=== PATIENT | male | born 1940 | race Caucasian/White ===

== ENCOUNTER 2017-06-24 07:36 | Inpatient (IN) | payer MEDICARE, OTHER ==
[~2017-06-24] VITALS: Ht 193 cm; Wt 96.8 kg
[2017-06-24] VITALS (11 sets, daily range): BP systolic 142–168; BP diastolic 68–83; PULSE 55–79; RESP 13–20; TEMP 97.5–98.2; O2SAT 89–100
[~2017-06-24 07:36] MED LIST: ASPI81TA82 PO; DORZO2%O EACH EYE; LANTUSP SQ; LISI-366 PO; NOVORP2 SQ
[2017-06-24] MEDS ORDERED: SODIUM CHLOR 0.9% 1000 ML INJ 1,000 ML IV SCH (07:55)
[2017-06-24] MEDS ORDERED: ASPI81CH CHEW (07:58)
[2017-06-24] MEDS ORDERED: HYDR12.57 PO (07:58)
[2017-06-24] MEDS ORDERED: LISI40TA PO (07:58)
[2017-06-24] MEDS ORDERED: LANTUS2P SQ (07:58)
[2017-06-24] MEDS ORDERED: AMIO200T PO (07:58)
[2017-06-24] MEDS ORDERED: NOVORP2 SQ ×2 (07:58)
[2017-06-24] MEDS ORDERED: SODIUM CHLORIDE 0.9% FLUSH 10 ML FLUSH IV FLUSH PRN ×2 (08:00→11:30)
[2017-06-24] MEDS ORDERED: MORPHINE SULFATE 4 MG/ML INJ IV PUSH ONE (08:00)
[2017-06-24] MEDS ORDERED: ONDANSETRON HCL 4 MG/2 ML VIAL IVP ONE (08:00)
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
[2017-06-24 08:28] LABS: AUTOMATED NEUTROPHIL # 9.3 TH/MM3 (1.8-7.7); BASOPHIL # 0.1 TH/MM3 (0-0.2); BASOPHIL % 0.6 % (0.0-2.0); EOSINOPHIL # 0.1 TH/MM3 (0-0.4); EOSINOPHIL % 0.6 % (0.0-4.0); HEMOGLOBIN 15.3 GM/DL (13.0-17.0); LYMPH % 11.4 % (9.0-44.0); LYMPHOCYTE # 1.3 TH/MM3 (1.0-4.8); MEAN CELL VOLUME 89.5 FL (80.0-100.0); MEAN CORPUSCULAR HEMOGLOBIN 30.5 PG (27.0-34.0); MEAN CORPUSCULAR HGB CONC 34.1 % (32.0-36.0); MEAN PLATELET VOLUME 7.6 FL (7.0-11.0); MONO % 5.5 % (0.0-8.0); MONOCYTE # 0.6 TH/MM3 (0-0.9); NEUT % 81.9 % (16.0-70.0); PLATELET COUNT 320 TH/MM3 (150-450); RED BLOOD COUNT 5.03 MIL/MM3 (4.50-5.90); RED CELL DISTRIBUTION WIDTH 12.9 % (11.6-17.2); WHITE BLOOD COUNT 11.4 TH/MM3 (4.0-11.0)
--- NOTE | 2017-06-24 08:43 | RADRPT ---
EXAM DATE/TIME: 06/24/2017 08:21 [facility] COMPARISON: No previous studies available for comparison. INDICATIONS : Vomitting and shortness of breath. MEDICAL HISTORY : Pancreatitis. A-fib. SURGICAL HISTORY : Appendectomy. Cholecystectomy. ENCOUNTER: Initial ACUITY: 1 day PAIN SCORE: 0/10 LOCATION: Bilateral chest FINDINGS: Minimal elevation of the left hemidiaphragm with minimal left lower lobe airspace disease. Cardiomedi astinal contours are within normal limits. Bony thorax is intact. CONCLUSION: 1. Minimal left lower lobe airspace disease and volume loss consistent with atelectasis. Sourav Guevara MD on June 24, 2017 at 8:40 Board Certified Radiologist. This report was verified electronically.
[2017-06-24 08:47] LABS: ALBUMIN 3.6 GM/DL (3.4-5.0); ALT (GPT) 26 U/L (12-78); AST (GOT) 23 U/L (15-37); BICARBONATE 25.1 MEQ/L (21.0-32.0); BLOOD UREA NITROGEN 18 MG/DL (7-18); CALCIUM 9.1 MG/DL (8.5-10.1); CHLORIDE 98 MEQ/L (98-107); CREATININE 1.33 MG/DL (0.60-1.30); GLOMERULAR FILTRATION RATE 52 ML/MIN (>89); GLUCOSE,RANDOM 219 MG/DL (74-106); LIPASE 253 U/L (73-393); SODIUM (NA) 134 MEQ/L (136-145)
[2017-06-24 08:50] LABS: ALKALINE PHOSPHATASE 100 U/L (45-117); TOTAL BILIRUBIN ADULT 0.6 MG/DL (0.2-1.0); TOTAL PROTEIN 8.4 GM/DL (6.4-8.2)
[2017-06-24 09:34] LABS: TROPONIN I 0.12 NG/ML (0.02-0.05)
[2017-06-24] MEDS ORDERED: ASPIRIN 81 MG CHEW TAB CHEW ONE (10:30)
--- NOTE | 2017-06-24 10:36 | HHI.HP ---
[facility] Service Family Medicine Primary Care Physician Gregg Fernández, DO Admission Diagnosis nausea/vomiting, elevated troponin, chronic pancreatitis Diagnoses: International Travel<30 Days: No Contact w/Intl Traveler<30days: No Known Affected Area: No History of Present Illness Patient is a 76 year old male with PMH significant for paroxysmal atrial fibrillation, chronic pancreatitis, HTN, hepatitic C, prostate cancer, DM who presents to the ED with complaints of epigastric abdominal pain over about the past week. He states he had a cracker last night around 2300 and he thinks this may have set his pain off. States his pain is nonradiating, describes it as a steady burning pain and also as dull achy. Denies any sharp pains. He states he has vomited about 3 times over the past day. States the first time he threw up was yesterday morning. Last time he threw up was 02:30 this morning. States the vomit has mostly been orange, same color as his jello. No bilious or bloody vomiting per patient. Endorses having diarrhea that started this past Tuesday. Having diarrhea about 2/3 times daily. Last BM was last night; endorses this was loose. Denies visible blood in stools or melena. Denies fevers, chills, night sweats recently. He states Dr. Gillis is his police officer booking. States he recently had an EUS at [facility] and had a biopsy performed which was negative for malignancy. States this was done last week. He also reports he recently had a CT scan of his abdomen and MRCP which he states were both negative. States theses were performed about a month ago. These were performed at [facility]. He states Dr. Angulo is his development executive. He states he was referred to Dr. Angulo for atrial fibrillation. Last visit was about a month ago. He states he is taking amiodarone 200 mg po daily. The patient denies any current chest pain. Denies palpitations or diaphoresis. He does states he has felt some intermittent chest tightness and sometimes more of a pressure over the course of last week but denies anything current and denies any crushing chest pain. (Servando Pérez MD R2) Review of Systems Constitutional: COMPLAINS OF: Weight loss, DENIES: Fever, Chills, Change in appetite Respiratory: DENIES: Cough, Sputum production, Shortness of breath Cardiovascular: DENIES: Chest pain, Palpitations, Lower Extremity Edema Gastrointestinal: COMPLAINS OF: Abdominal pain, Diarrhea, Nausea, Vomiting, DENIES: Black stools, Bloody stools, Constipation Genitourinary: DENIES: Hematuria, Dysuria Integumentary: DENIES: Rash (Servando Pérez MD R2) Past Family Social History Past Medical History Paroxysmal atrial fibrillation Prostate Cancer diagnosed about 4 years ago Chronic pancreatitis H/o bowel obstruction DM Hepatitic C s/p Harvoni therapy HTN Emphysema Past Surgical History Rotator cuff repair bilaterally Cholecystectomy Appendectomy per patient Bilateral knee surgeries Tracheotomy Surgery for herniated disc (Servando Pérez MD R2) Allergies: Coded Allergies: No Known Allergies (Verified , 06/24/17) Family History Father: unspecified GI issues Mother: Cardiac disease Social History Tobacco: 1 PPD; quit smoking about a year ago, started smoking at age 10 Etoh: currently denies; used to drink a couple 6 packs of beer daily, states his last drink was about 12 years ago Illicit drug use: last use of marijuana was about a month ago; otherwise denies use of other substances Lives with daughter and her and his grandson (Servando Pérez MD R2) Physical Exam Vital Signs Vital Signs Date Time Temp Pulse Resp B/P (MAP) Pulse Ox O2 Delivery O2 Flow Rate FiO2 06/24/17 09:49 62 16 142/71 (94) 98 Nasal Cannula 2.00 06/24/17 08:21 16 96 Nasal Cannula 2.00 06/24/17 08:20 16 89 Room Air 06/24/17 08:18 16 06/24/17 07:38 97.6 79 13 160/82 (108) 95 Physical Exam GENERAL: NAD, lying comfortably in bed NEURO: Alert. Normal speech. 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 Motor grossly normal. SKIN: Warm and dry. No rashes or erythema. HEAD: Normocephalic. Atraumatic. EYES: PERRL. EOMI. No scleral icterus. No injection or drainage. ENT: No nasal drainage. Moist mucous membranes. No oral ulcers or lesions. NECK: Supple, trachea midline. No JVD. No carotid bruits. CARDIOVASCULAR: Regular rate and rhythm without murmurs, rubs, or gallops. Peripheral pulses 2+. Capillary refill < 2 seconds. RESPIRATORY: Breath sounds clear to auscultation and equal bilaterally, without wheezes, rales, or rhonchi. No accessory muscle use. GASTROINTESTINAL: Abdomen soft, tender to moderate palpation in mid-upper abdomen as well as some tenderness to deeper palpation in LUQ and RUQ, nontender in lower quadrants, nondistended, normal BS. No organomegaly or masses. No rebound tenderness. No guarding. MUSCULOSKELETAL: No lower extremity edema. Normal range of motion. BACK: Nontender without obvious deformity. Laboratory Laboratory Tests Test 06/24/17 08:02 White Blood Count 11.4 Red Blood Count 5.03 Hemoglobin 15.3 Hematocrit 45.0 Mean Corpuscular Volume 89.5 Mean Corpuscular Hemoglobin 30.5 Mean Corpuscular Hemoglobin Concent 34.1 Red Cell Distribution Width 12.9 Platelet Count 320 Mean Platelet Volume 7.6 Neutrophils (%) (Auto) 81.9 Lymphocytes (%) (Auto) 11.4 Monocytes (%) (Auto) 5.5 Eosinophils (%) (Auto) 0.6 Basophils (%) (Auto) 0.6 Neutrophils # (Auto) 9.3 Lymphocytes # (Auto) 1.3 Monocytes # (Auto) 0.6 Eosinophils # (Auto) 0.1 Basophils # (Auto) 0.1 CBC Comment DIFF FINAL Differential Comment Blood Urea Nitrogen 18 Creatinine 1.33 Random Glucose 219 Total Protein 8.4 Albumin 3.6 Calcium Level 9.1 Alkaline Phosphatase 100 Aspartate Amino Transf (AST/SGOT) 23 Alanine Aminotransferase (ALT/SGPT) 26 Total Bilirubin 0.6 Sodium Level 134 Potassium Level 4.3 Chloride Level 98 Carbon Dioxide Level 25.1 Anion Gap 11 Estimat Glomerular Filtration Rate 52 Lactic Acid Level 1.7 Total Creatine Kinase 102 Troponin I 0.12 Lipase 253 (Servando Pérez MD R2) Result Diagram: 06/24/1780106/24/17801 Caprini VTE Risk Assessment Caprini VTE Risk Assessment: Mod/High Risk (score >= 2) Caprini Risk Assessment Model Point Value = 1 Point Value = 2 Point Value = 3 Point Value = 5 Age 41-60 Minor surgery BMI > 25 kg/m2 Swollen legs Varicose veins or History of unexplained or recurrent spontaneous Oral contraceptives or hormone replacement Sepsis (< 1 month) Serious lung disease, including pneumonia (< 1 month) Abnormal pulmonary function Acute myocardial infarction Congestive heart failure (< 1 month) History of inflammatory bowel disease Medical patient at bed rest Age 61-74 Arthroscopic surgery Major open surgery (> 45 min) Laparoscopic surgery (> 45 min) Malignancy Confined to bed (> 72 hours) Immobilizing plaster cast Central venous access Age >= 75 History of VTE Family history of VTE Factor V Leiden Prothrombin [id number] Lupus anticoagulant Anticardiolipin antibodies Elevated serum homocysteine Heparin-induced thrombocytopenia Other congenital or acquired thrombophilia Stroke (< 1 month) Elective arthroplasty Hip, pelvis, or leg fracture Acute spinal cord injury (< 1 month) Prophylaxis Regimen Total Risk Factor Score Risk Level Prophylaxis Regimen 0-1 Low Early ambulation 2 Moderate Order ONE of the following: *Sequential Compression Device (SCD) *Heparin 5000 units SQ BID 3-4 Higher Order ONE of the following medications: *Heparin 5000 units SQ TID *Enoxaparin/Lovenox 40 mg SQ daily (WT < 150 kg, CrCl > 30 mL/min) *Enoxaparin/Lovenox 30 mg SQ daily (WT < 150 kg, CrCl > 10-29 mL/min) *Enoxaparin/Lovenox 30 mg SQ BID (WT < 150 kg, CrCl > 30 mL/min) AND/OR *Sequential Compression Device (SCD) 5 or more Highest Order ONE of the following medications: *Heparin 5000 units SQ TID (Preferred with Epidurals) *Enoxaparin/Lovenox 40 mg SQ daily (WT < 150 kg, CrCl > 30 mL/min) *Enoxaparin/Lovenox 30 mg SQ daily (WT < 150 kg, CrCl > 10-29 mL/min) *Enoxaparin/Lovenox 30 mg SQ BID (WT < 150 kg, CrCl > 30 mL/min) AND *Sequential Compression Device (SCD) (Servando Pérez MD R2) Assessment and Plan Assessment and Plan 76 year old man being admitted for symptoms consistent with chronic pancreatitis also found to have an elevated initial troponin to 0.[address] segment changes in contiguous leads. Code Status OK with ACLS protocol DNI Discussed Condition With Dr. Donell Romero (Servando Pérez MD R2) Attending Attestation Patient seen and examined. Case reviewed and discussed with the resident team. Agree with plan of care as discussed with me and documented in the resident note.pt seen on admission. no pain and no anginal sxs on admission. (Lisa Marley MD) Problem List: (1) Chronic pancreatitis ICD Codes: K86.1 - Other chronic pancreatitis Status: Acute Plan: Symptoms are mostly consistent with his chronic pancreatitis given his epigastric abdominal pain with N/V and association with meals Monitor closely for any development of complications asst with chronic pancreatitis and may consider further imaging if necessary Will hold off on imaging at this time given patient recently having an EUS performed as well as abd/pelvis CT along with MRCP Request ordered to obtain records for above imaging studies prior to further workup Initial lipase on admission WNL at 253 - Will keep patient NPO for now for bowel rest - IVF hydration with NS at maintenance - Zofran prn - Tylenol and Morphine prn pain (2) ST segment changes on electrocardiogram ICD Codes: R94.31 - Abnormal electrocardiogram [ECG] [EKG] Status: Acute Plan: - Initial troponin on admission 0.12 - EKG showing slight ST elevations in the anteroseptal leads that is different from his last EKG in this EMR however this is from 2013 - Cardiology consulted Spoke with Dr. Aviles, cardiology, via phone to discuss concern for a STEMI - Recommended as the patient currently does not have any anginal symptoms that he would not undergo a cardiac catheterization at this time - Start patient on metoprolol 25 mg po bid - Continue baby aspirin Will trend cardiac enzymes and EKG q6h x2 Nitroglycerin 1/2 inch q8h prn chest pain, allow for nitro free interval at least 8 hours daily Patient started on a heparin drip per protocol (3) Paroxysmal atrial fibrillation ICD Codes: I48.0 - Paroxysmal atrial fibrillation Status: Chronic Plan: Currently sinus rhythm Continue home amiodarone 200 mg po daily Cardiology consulted CHADSVASc score of 4 HASBLED of 2 Patient would likely benefit from chronic anticoagulation, will defer to cardiology at this time (4) ARIANA (acute kidney injury) ICD Codes: N17.9 - Acute kidney failure, unspecified Status: Acute Plan: Cr 1.33 on admission Last Cr in EMR 0.62 from 04/2014 Possibly acute on chronic in the setting of dehydration vs CKD IVF hydration as above Avoid nephrotoxins as able Monitor I/Os (5) Hypertension ICD Codes: I10 - Essential (primary) hypertension Status: Chronic Plan: Started metoprolol 25 mg po q12h Monitor vitals q4h (6) Leukocytosis ICD Codes: D72.829 - Elevated white blood cell count, unspecified Status: Acute Plan: Mildly elevated to 11.4, slight left shift present Clinically appears without an acute infectious process Continue to monitor clinically CXR demonstrating minimal left lower lobe airspace disease and volume loss consistent with atelectasis (7) Diabetes mellitus ICD Codes: E11.9 - Type 2 diabetes mellitus without complications Status: Chronic Plan: Accuchecks ACHS Low-dose NovoLog ISS Add basal if needed Hold home insulins (8) Hyponatremia ICD Codes: E87.1 - Hypo-osmolality and hyponatremia Status: Acute Plan: Na 134, continue to monitor (9) Nutrition, metabolism, and development symptoms ICD Codes: R63.8 - Other symptoms and signs concerning food and fluid intake Status: Acute Plan: Fluids: NS at maintenance Electrolytes: continue to monitor Nutrition: NPO DVT ppx: Heparin drip (Servando Pérez MD R2) Physician Certification 2 Midnight Certification Type: Admission for Inpatient Services Order for Inpatient Services The services are ordered in accordance with Medicare regulations or non- Medicare payer requirements, as applicable. In the case of services not specified as inpatient-only, they are appropriately provided as inpatient services in accordance with the 2-midnight benchmark. Estimated LOS (days): 2 days is the estimated time the patient will need to remain in the hospital, assuming treatment plan goals are met and no additional complications. Post-Hospital Plan: Home (Servando Pérez MD R2) Problem Qualifiers (1) Chronic pancreatitis: Qualified Codes: K86.0 - Alcohol-induced chronic pancreatitis (2) Hypertension: Qualified Codes: I10 - Essential (primary) hypertension (3) Leukocytosis: Qualified Codes: D72.829 - Elevated white blood cell count, unspecified (4) Diabetes mellitus: Qualified Codes: E10.8 - Type 1 diabetes mellitus with unspecified complications Servando Pérez MD R2 Jun 24, 2017 10:36 Lias Marley MD Jun 25, 2017 12:46
[2017-06-24] MEDS ORDERED: NALOXONE HCL 0.4 MG/ML AMP IV PUSH PRN (11:30)
[2017-06-24] MEDS ORDERED: MORPHINE SULFATE 4 MG/ML INJ IV PUSH PRN (11:30)
[2017-06-24] MEDS ORDERED: HEPARIN SODIUM - SQ 10,000 UNITS/ML VIAL SQ SCH (12:00)
[2017-06-24] MEDS ORDERED: cloNIDine HCL 0.1 MG TAB PO PRN (12:00)
[2017-06-24] MEDS ORDERED: DEXTROSE 50% IN WATER 50 ML VIAL(D50) IV PUSH PRN (12:15)
[2017-06-24] MEDS ORDERED: GLUCAGON 1 MG/ML VIAL OTHER PRN (12:15)
[2017-06-24] MEDS: SODIUM CHLOR 0.9% 1000 ML INJ 1,000 ML IV SCH ×2 (12:30→20:59)
[2017-06-24] MEDS: METOPROLOL TARTRATE 25 MG TAB PO SCH ×2 (12:30→21:21)
[2017-06-24] MEDS: INSULIN ASPART SUPPLEMENTAL SCALE SQ SCH ×3 (12:30→21:00)
[2017-06-24] MEDS: SODIUM CHLORIDE 0.9% FLUSH 10 ML FLUSH IV FLUSH SCH ×2 (12:30→20:46)
[2017-06-24] MEDS: ACETAMINOPHEN 325 MG TAB PO PRN ×2 (16:15→20:53)
--- NOTE | 2017-06-24 16:37 | MB ---
cc: STEVE ARRIETA M.D. DATE OF CONSULTATION: 06/24/2017. REASON FOR CONSULTATION: Evaluation of increased troponin. CHIEF COMPLAINT: Abdominal pain and vomiting. HISTORY OF PRESENT ILLNESS: Henok Bates is a 76-year-old white male admitted to the hospital with pancreatitis. The patient has had four episodes of pancreatitis since March. The etiology for the pancreatitis is unclear. He has had an MRCP. He has had multiple evaluations with no etiology found. The patient has been noted to have increased troponin on prior admissions to [facility]. He had a nuclear stress test performed that did not show any evidence for ischemia back in March. When he had the pancreatitis in March, he had an episode of atrial fibrillation and he was converted with amiodarone. The patient and daughter elected not to go on anticoagulation but he has been maintained on oral amiodarone. He has had no recurrence of any arrhythmias that he is aware of. He has not had any recent typical chest pain. He has had two episodes of squeezing in his chest that woke him up at night, each lasting less than a minute and the last one was two minutes two weeks ago. The pain is sharp, located the mid stomach. If he eats, it brings on the pain and makes him vomit. He has been increasingly sedentary since March. Prior to that, he was quite active. He has had no syncope or pre-syncope. No bleeding. PAST MEDICAL HISTORY: His past medical history includes: 1. Paroxysmal atrial fibrillation as described above. 2. Pancreatitis as described above. 3. He has had previous bowel obstruction. 4. He has had chronically elevated troponin. 5. Diverticulosis. 6. Diabetes mellitus. 7. Left foot drop. 8. Hepatitis C which is cured with Harvoni therapy. 9. Hypertension. 10. Prostate cancer treated with radiation therapy. PAST SURGICAL HISTORY: 1. Surgery for herniated disc which is responsible for the left foot drop. 2. Rotator cuff repair bilaterally. 3. Cholecystectomy. MEDICATIONS: 1. Aspirin 81 milligrams. 2. Amiodarone 200 milligrams daily. 3. Hydralazine which he only takes once a day. 4. Lisinopril 40 milligrams daily. 5. Insulin. ALLERGIES: NONE KNOWN. FAMILY HISTORY: Family history is positive for cancer and valve replacement in his mother. SOCIAL HISTORY: He used cocaine in his 40s, not since then. He smoked about a pack a day for 50 years and has COPD. He has not used in two months. He denies any alcohol use. REVIEW OF SYSTEMS: Review of systems otherwise negative. PHYSICAL EXAMINATION: GENERAL: A well-developed, well-nourished white male in no acute distress. VITAL SIGNS: Charted. HEAD, EYES, EARS, NOSE, THROAT: Unremarkable. NECK: No jugular venous distention. No bruits. CHEST: Clear to auscultation and percussion. CARDIAC: Normal first and second heart sounds. Regular rate and rhythm without murmurs or gallops. ABDOMEN: Positive bowel sounds. There is a mid-abdominal tenderness. EXTREMITIES: No cyanosis, clubbing or edema. Pulses are intact. EKGS: EKG shows sinus rhythm with slight S-T elevation in the anteroseptal leads that is no different from the two EKGs he has had. LABORATORY DATA: Troponin was 0.12 at 8:02 a.m. Creatinine is 1.33. Lipase is 253. IMAGING STUDIES: Chest x-ray shows possible atelectasis left base. IMPRESSION: Henok Bates has a mildly elevated troponin but he has had this before and had a negative nuclear stress test. He has clear abdominal tenderness that cannot explain or cannot tie the troponin in with the pancreatitis that he apparently has. The EKG is abnormal. My office is in the process getting hold of EKGs when he was in sinus in March to see if there is any difference. He has had atrial fibrillation before but has converted to sinus and maintained on amiodarone 200 milligrams daily. The etiology the pancreatitis is unclear and GI has been consulted. PLAN: I am not planning a cardiac catheterization at this point since he has no anginal type symptoms. Further therapy to be determined. MD MARCOS Barillas/JULIANE /4:10 PM /4:17 PM
[2017-06-24 17:33] LABS: MAGNESIUM 1.8 MG/DL (1.5-2.5)
[2017-06-24 17:36] LABS: TROPONIN I 0.16 NG/ML (0.02-0.05)
[2017-06-24] MEDS ORDERED: HEPARIN-D5W 25,000 U/250 ML 250 ML IV PRN (17:45)
[2017-06-24] MEDS ORDERED: HEPARIN SODIUM - IV 10,000 UNITS/10 ML VIAL IV PUSH ONE (17:45)
[2017-06-24] MEDS ORDERED: NITROGLYCERIN 2% OINT 1 GM PACKET TOPICAL PRN (17:45)
[2017-06-24] MEDS: ONDANSETRON HCL 4 MG/2 ML VIAL IVP PRN (18:24)
[2017-06-24 19:02] LABS: PROTHROMBIN TIME - PATIENT 11.4 SEC (9.8-11.6)
--- NOTE | 2017-06-24 19:11 | EKG ---
Date Performed: 06/24/2017 Time Performed: 07:59:53 PTAGE: 76 years EKG: Sinus rhythm ST DEVIATION AND MODERATE T-WAVE ABNORMALITY, CONSIDER ANTERIOR ISCHEMIA ABNORMAL ECG PREVIOUS TRACING : 06/24/2017 07.58 DOCTOR: Nick Christopher Interpretating Date/Time 06/24/2017 19:09:09
[2017-06-24] MEDS ORDERED: HEPARIN SODIUM - IV 10,000 UNITS/10 ML VIAL IV PUSH PRN ×2 (23:45)
[2017-06-25] VITALS (8 sets, daily range): BP systolic 152–170; BP diastolic 70–86; PULSE 55–84; RESP 17–20; TEMP 97.2–98; O2SAT 95–98
[2017-06-25] MEDS: ONDANSETRON HCL 4 MG/2 ML VIAL IVP PRN (00:26)
[2017-06-25] MEDS: MORPHINE SULFATE 4 MG/ML INJ IV PUSH PRN (00:59)
[2017-06-25 04:03] LABS: AUTOMATED NEUTROPHIL # 6.1 TH/MM3 (1.8-7.7); BASOPHIL % 0.6 % (0.0-2.0); EOSINOPHIL # 0.2 TH/MM3 (0-0.4); EOSINOPHIL % 2.6 % (0.0-4.0); HEMATOCRIT 39.6 % (39.0-51.0); HEMOGLOBIN 13.6 GM/DL (13.0-17.0); LYMPH % 15.9 % (9.0-44.0); LYMPHOCYTE # 1.3 TH/MM3 (1.0-4.8); MEAN CELL VOLUME 88.7 FL (80.0-100.0); MEAN CORPUSCULAR HEMOGLOBIN 30.5 PG (27.0-34.0); MEAN CORPUSCULAR HGB CONC 34.4 % (32.0-36.0); MEAN PLATELET VOLUME 7.3 FL (7.0-11.0); MONO % 8.8 % (0.0-8.0); MONOCYTE # 0.7 TH/MM3 (0-0.9); NEUT % 72.1 % (16.0-70.0); PLATELET COUNT 268 TH/MM3 (150-450); RED BLOOD COUNT 4.47 MIL/MM3 (4.50-5.90); WHITE BLOOD COUNT 8.4 TH/MM3 (4.0-11.0)
[2017-06-25 04:30] LABS: ALBUMIN 2.9 GM/DL (3.4-5.0); AST (GOT) 20 U/L (15-37); BICARBONATE 25.5 MEQ/L (21.0-32.0); BLOOD UREA NITROGEN 15 MG/DL (7-18); CALCIUM 8.3 MG/DL (8.5-10.1); CHLORIDE 107 MEQ/L (98-107); CREATININE 1.11 MG/DL (0.60-1.30); GLOMERULAR FILTRATION RATE 65 ML/MIN (>89); GLUCOSE,RANDOM 166 MG/DL (74-106); LIPASE 140 U/L (73-393); SODIUM (NA) 140 MEQ/L (136-145)
[2017-06-25 04:36] LABS: ALKALINE PHOSPHATASE 87 U/L (45-117); ALT (GPT) 19 U/L (12-78); TOTAL BILIRUBIN ADULT 0.5 MG/DL (0.2-1.0)
[2017-06-25] MEDS: SODIUM CHLOR 0.9% 1000 ML INJ 1,000 ML IV SCH ×3 (05:28→22:11)
[2017-06-25] MEDS: INSULIN ASPART SUPPLEMENTAL SCALE SQ SCH ×4 (08:00→21:00)
[2017-06-25] MEDS: LISINOPRIL 20 MG TAB PO SCH (08:57)
[2017-06-25] MEDS: ASPIRIN 81 MG CHEW TAB CHEW SCH (08:58)
[2017-06-25] MEDS: METOPROLOL TARTRATE 25 MG TAB PO SCH ×2 (08:58→22:03)
[2017-06-25] MEDS: AMIODARONE 200 MG TAB PO SCH (08:58)
[2017-06-25] MEDS: SODIUM CHLORIDE 0.9% FLUSH 10 ML FLUSH IV FLUSH SCH ×2 (08:59→21:00)
[2017-06-25] MEDS ORDERED: INFLUENZA VIRUS VACCINE (QUADRIVALENT) 0.5 ML SYR IM ONE (10:00)
--- NOTE | 2017-06-25 10:49 | PD.CARD.PN ---
Subjective Subjective Remarks Vomited last night - states this always happens if he gets morphine without simultaneous Zofran. Absolutely no chest pain Objective Medications Current Medications Medications (Trade) Dose Ordered Sig/Shalonda Route Start Time Stop Time Status Last Admin Sodium Chloride 1,000 ml @ 115 mls/hr [id number] IV 06/24/17 12:00 06/25/17 05:28 (NS Flush) 2 ml UNSCH PRN IV FLUSH 06/24/17 11:30 (NS Flush) 2 ml BID IV FLUSH 06/24/17 11:30 06/24/17 20:46 (Tylenol) 650 mg Q4H PRN PO 06/24/17 11:30 06/24/17 20:53 (Zofran Inj) 4 mg Q6H PRN IVP 06/24/17 11:30 06/25/17 00:26 (Narcan Inj) 0.4 mg UNSCH PRN IV PUSH 06/24/17 11:30 (NovoLOG SUPPLEMENTAL SCALE) 1 ACHS SLIDING SCALE SQ 06/24/17 12:00 06/24/17 12:30 (Cordarone) 200 mg DAILY PO 06/25/17 09:00 06/25/17 08:58 (Lopressor) 25 mg Q12HR PO 06/24/17 12:00 06/25/17 08:58 (Aspirin Chew) 81 mg DAILY CHEW 06/25/17 09:00 06/25/17 08:58 (D50w (Vial) Inj) 50 ml UNSCH PRN IV PUSH 06/24/17 12:15 (Glucagon Inj) 1 mg UNSCH PRN OTHER 06/24/17 12:15 (Catapres) 0.1 mg Q6H PRN PO 06/24/17 12:00 (Prinivil) 40 mg DAILY PO 06/25/17 09:00 06/25/17 08:57 (Heparin Inj) 5,000 units UNSCH PRN IV PUSH 06/24/17 23:45 (Heparin Inj) 2,500 units UNSCH PRN IV PUSH 06/24/17 23:45 Heparin Sodium/ Dextrose 250 ml @ 10 mls/hr TITRATE PRN IV 06/24/17 17:45 06/24/17 20:43 (Nitroglycerin 2% Oint) 0.5 inch Q8HR PRN TOPICAL 06/24/17 17:45 (Morphine Inj) 2 mg Q4HR PRN IV PUSH 06/24/17 20:45 (Morphine Inj) 4 mg Q4HR PRN IV PUSH 06/24/17 22:30 06/25/17 00:59 Vital Signs / I&O Vital Signs Date Time Temp Pulse Resp B/P (MAP) Pulse Ox O2 Delivery O2 Flow Rate FiO2 06/25/17 10:34 98 Nasal Cannula 06/25/17 08:00 97.7 61 18 158/78 (104) 98 06/25/17 05:16 98.0 55 17 162/86 (111) 97 06/25/17 00:16 98.0 58 17 152/78 (102) 96 06/24/17 20:53 98.2 60 18 142/68 (92) 97 06/24/17 17:59 97 Nasal Cannula 2.00 06/24/17 16:00 97.9 55 20 168/83 (111) 96 06/24/17 13:31 97 Nasal Cannula 2.00 06/24/17 12:17 97.5 66 20 162/81 (108) 94 06/24/17 12:10 06/24/17 11:35 60 16 159/82 (107) 100 Nasal Cannula 2.00 I/O 06/24/17 06/24/17 06/24/17 06/25/17 06/25/17 06/25/17 07:00 15:00 23:00 07:00 15:00 23:00 Intake Total 1000 ml 0 ml 1050 ml Balance 1000 ml 0 ml 1050 ml Intake Oral 0 ml IV Total 1000 ml 1050 ml # Voids 1 # Bowel Movements 0 Physical Exam GENERAL: Well developed, well nourished. No acute distress. HEENT: Jugular venous pressure is normal. CHEST: Lungs clear to auscultation bilaterally. Unlabored respiratory effort. CARDIAC: Regular rate and rhythm without S3, S4, or murmur. ABDOMEN: Bowel sounds present. Not tender to palpitation like he was yesterday EXTREMITIES: No clubbing, cyanosis, or edema. Laboratory Laboratory Tests Test 06/24/17 16:35 06/24/17 18:05 06/24/17 19:42 06/25/17 01:58 Magnesium Level 1.8 MG/DL Troponin I 0.16 NG/ML 0.16 NG/ML Prothrombin Time 11.4 SEC Prothromb Time International Ratio 1.0 RATIO Activated Partial Thromboplast Time 26.1 SEC 49.7 SEC Test 06/25/17 03:45 White Blood Count 8.4 TH/MM3 Red Blood Count 4.47 MIL/MM3 Hemoglobin 13.6 GM/DL Hematocrit 39.6 % Mean Corpuscular Volume 88.7 FL Mean Corpuscular Hemoglobin 30.5 PG Mean Corpuscular Hemoglobin Concent 34.4 % Red Cell Distribution Width 13.0 % Platelet Count 268 TH/MM3 Mean Platelet Volume 7.3 FL Neutrophils (%) (Auto) 72.1 % Lymphocytes (%) (Auto) 15.9 % Monocytes (%) (Auto) 8.8 % Eosinophils (%) (Auto) 2.6 % Basophils (%) (Auto) 0.6 % Neutrophils # (Auto) 6.1 TH/MM3 Lymphocytes # (Auto) 1.3 TH/MM3 Monocytes # (Auto) 0.7 TH/MM3 Eosinophils # (Auto) 0.2 TH/MM3 Basophils # (Auto) 0.0 TH/MM3 CBC Comment DIFF FINAL Differential Comment Activated Partial Thromboplast Time 43.9 SEC Blood Urea Nitrogen 15 MG/DL Creatinine 1.11 MG/DL Random Glucose 166 MG/DL Total Protein 7.0 GM/DL Albumin 2.9 GM/DL Calcium Level 8.3 MG/DL Alkaline Phosphatase 87 U/L Aspartate Amino Transf (AST/SGOT) 20 U/L Alanine Aminotransferase (ALT/SGPT) 19 U/L Total Bilirubin 0.5 MG/DL Sodium Level 140 MEQ/L Potassium Level 4.0 MEQ/L Chloride Level 107 MEQ/L Carbon Dioxide Level 25.5 MEQ/L Anion Gap 8 MEQ/L Estimat Glomerular Filtration Rate 65 ML/MIN Lipase 140 U/L Imaging Last 48 hours Impressions Chest X-Ray 06/24/17 0000 Signed Impressions: Service Date/Time: Saturday, June 24, 2017 08:21 - CONCLUSION: 1. Minimal left lower lobe airspace disease and volume loss consistent with atelectasis. Sourav Guevara MD Assessment and Plan Problem List: (1) Elevated troponin ICD Codes: R74.8 - Abnormal levels of other serum enzymes Status: Acute Plan: Medical therapy. Recent negative SPECT. No chest pain. (2) Paroxysmal atrial fibrillation ICD Codes: I48.0 - Paroxysmal atrial fibrillation Status: Chronic Plan: No recurrence (3) Hypertension ICD Codes: I10 - Essential (primary) hypertension Status: Chronic Plan: add amlodipine 2.5 mg (4) Chronic pancreatitis ICD Codes: K86.1 - Other chronic pancreatitis Status: Acute Plan: GI has not been consulted so I placed order for one. (5) Nausea & vomiting ICD Codes: R11.2 - Nausea with vomiting, unspecified Status: Acute Problem Qualifiers (1) Nausea & vomiting: Qualified Codes: R11.2 - Nausea with vomiting, unspecified Fran Aviles MD Jun 25, 2017 10:49
[2017-06-25] MEDS ORDERED: PILL SPLITTER OTHER PRN (11:00)
[2017-06-25] MEDS: amLODIPine BESYLATE 5 MG TAB PO SCH (11:09)
--- NOTE | 2017-06-25 12:15 | HHI.HP ---
[facility] Service Family Medicine Primary Care Physician Gregg Fernández, DO Admission Diagnosis nausea/vomiting, elevated troponin, chronic pancreatitis Diagnoses: (1) Chronic pancreatitis Diagnosis: Principal (2) ST segment changes on electrocardiogram Diagnosis: Principal (3) Paroxysmal atrial fibrillation Diagnosis: Principal (4) ARIANA (acute kidney injury) Diagnosis: Principal (5) Hypertension Diagnosis: Principal (6) Leukocytosis Diagnosis: Principal (7) Diabetes mellitus Diagnosis: Principal (8) Hyponatremia Diagnosis: Principal (9) Nutrition, metabolism, and development symptoms Diagnosis: Principal International Travel<30 Days: No Contact w/Intl Traveler<30days: No Known Affected Area: No History of Present Illness Mr Bates is a 76 year old male with PMH significant for paroxysmal atrial fibrillation, chronic pancreatitis, HTN, hepatitic C, prostate cancer, DM who presents to the ED with complaints of epigastric abdominal pain over about the past week. He states he had a cracker last night around 2300 and he thinks this may have set his pain off. States his pain is nonradiating, describes it as a steady burning pain and also as dull achy. Denies any sharp pains. He states he has vomited about 3 times over the past day. States the first time he threw up was the day before admission. States the vomit has mostly been orange, same color as his jello. No bilious or bloody vomiting per patient. Endorses having diarrhea that started this past Tuesday. Having diarrhea about 2/3 times daily. Last BM was last night; endorses this was loose. Denies visible blood in stools or melena. Denies fevers, chills, night sweats recently. 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 States he recently had an EUS at [facility] and had a biopsy performed which was negative for malignancy. States this was done last week. He also reports he recently had a CT scan of his abdomen and MRCP which he states were both negative. States these were performed about a month ago. These were performed at [facility] ([place], [place]). 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 He states he was referred to Dr. Angulo for atrial fibrillation. Last visit was about a month ago. He states he is taking amiodarone 200 mg po daily. The patient denies any current chest pain. Denies palpitations or diaphoresis. He does states he has felt some intermittent chest tightness and sometimes more of a pressure over the course of last week but denies anything current and denies any crushing chest pain. He has no history of typical anginal chest pain and no sxs at all on admission that are suggestive of current angina. His EKGs originally showed ST elevation anteriorly but that resolved on his current EKG. Mr Bates is very hungry and wants liquids this am at least but he is concerned that his pain could return if he eats. He has been on pancreatic enzymes but the type that does not instantly dissolve. He may improve with immediate release enzymes or I explained that some people get chronic pancreatitis and there is little that can be done. GI can see if he needs anything else done but doubt he will be able to avoid all future episodes. Review of Systems Other Constitutional: COMPLAINS OF: Weight loss, DENIES: Fever, Chills, Change in appetite Respiratory: DENIES: Cough, Sputum production, Shortness of breath Cardiovascular: DENIES: Chest pain, Palpitations, Lower Extremity Edema Gastrointestinal: COMPLAINS OF: Abdominal pain, Diarrhea, Nausea, Vomiting, DENIES: Black stools, Bloody stools, Constipation Genitourinary: DENIES: Hematuria, Dysuria Integumentary: DENIES: Rash Past Family Social History Past Medical History Paroxysmal atrial fibrillation Prostate Cancer diagnosed about 4 years ago Chronic pancreatitis H/o bowel obstruction DM Hepatitic C s/p Harvoni therapy HTN Emphysema Past Surgical History Rotator cuff repair bilaterally Cholecystectomy Appendectomy per patient Bilateral knee surgeries Tracheotomy Surgery for herniated disc Allergies: Coded Allergies: No Known Allergies (Verified , 06/24/17) Family History Father: unspecified GI issues Mother: Cardiac disease Social History Tobacco: 1 PPD; quit smoking about a year ago, started smoking at age 10 Etoh: currently denies; used to drink a couple 6 packs of beer daily, states his last drink was about 12 years ago Illicit drug use: last use of marijuana was about a month ago; otherwise denies use of other substances Lives with daughter and her and his grandson Physical Exam Vital Signs Vital Signs Date Time Temp Pulse Resp B/P (MAP) Pulse Ox O2 Delivery O2 Flow Rate FiO2 06/25/17 10:34 98 Nasal Cannula 06/25/17 08:00 97.7 61 18 158/78 (104) 98 06/25/17 05:16 98.0 55 17 162/86 (111) 97 06/25/17 00:16 98.0 58 17 152/78 (102) 96 06/24/17 20:53 98.2 60 18 142/68 (92) 97 06/24/17 17:59 97 Nasal Cannula 2.00 06/24/17 16:00 97.9 55 20 168/83 (111) 96 06/24/17 13:31 97 Nasal Cannula 2.00 06/24/17 12:17 97.5 66 20 162/81 (108) 94 Physical Exam GENERAL: NAD, lying comfortably in bed NEURO: Alert. Normal speech. etl data architect grossly intact. Motor grossly normal. SKIN: Warm and dry. No rashes or erythema. HEAD: Normocephalic. Atraumatic. EYES: PERRL. EOMI. No scleral icterus. No injection or drainage. ENT: No nasal drainage. Moist mucous membranes. No oral ulcers or lesions. NECK: Supple, trachea midline. No JVD. No carotid bruits. CARDIOVASCULAR: Regular rate and rhythm without murmurs, rubs, or gallops. Peripheral pulses 2+. Capillary refill < 2 seconds. RESPIRATORY: Breath sounds clear to auscultation and equal bilaterally, without wheezes, rales, or rhonchi. No accessory muscle use. GASTROINTESTINAL: Abdomen soft, tender to moderate palpation in mid-upper abdomen as well as some tenderness to deeper palpation in LUQ and RUQ, nontender in lower quadrants, nondistended, normal BS. No organomegaly or masses. No rebound tenderness. No guarding. MUSCULOSKELETAL: No lower extremity edema. Normal range of motion. BACK: Nontender without obvious deformity. Laboratory Laboratory Tests Test 06/24/17 16:35 06/24/17 18:05 06/24/17 19:42 06/25/17 01:58 Magnesium Level 1.8 Troponin I 0.16 0.16 Prothrombin Time 11.4 Prothromb Time International Ratio 1.0 Activated Partial Thromboplast Time 26.1 49.7 Test 06/25/17 03:45 White Blood Count 8.4 Red Blood Count 4.47 Hemoglobin 13.6 Hematocrit 39.6 Mean Corpuscular Volume 88.7 Mean Corpuscular Hemoglobin 30.5 Mean Corpuscular Hemoglobin Concent 34.4 Red Cell Distribution Width 13.0 Platelet Count 268 Mean Platelet Volume 7.3 Neutrophils (%) (Auto) 72.1 Lymphocytes (%) (Auto) 15.9 Monocytes (%) (Auto) 8.8 Eosinophils (%) (Auto) 2.6 Basophils (%) (Auto) 0.6 Neutrophils # (Auto) 6.1 Lymphocytes # (Auto) 1.3 Monocytes # (Auto) 0.7 Eosinophils # (Auto) 0.2 Basophils # (Auto) 0.0 CBC Comment DIFF FINAL Differential Comment Activated Partial Thromboplast Time 43.9 Blood Urea Nitrogen 15 Creatinine 1.11 Random Glucose 166 Total Protein 7.0 Albumin 2.9 Calcium Level 8.3 Alkaline Phosphatase 87 Aspartate Amino Transf (AST/SGOT) 20 Alanine Aminotransferase (ALT/SGPT) 19 Total Bilirubin 0.5 Sodium Level 140 Potassium Level 4.0 Chloride Level 107 Carbon Dioxide Level 25.5 Anion Gap 8 Estimat Glomerular Filtration Rate 65 Lipase 140 Result Diagram: 06/25/17 0345 06/25/17 034 Caprini VTE Risk Assessment Caprini VTE Risk Assessment: Mod/High Risk (score >= 2) Caprini Risk Assessment Model Point Value = 1 Point Value = 2 Point Value = 3 Point Value = 5 Age 41-60 Minor surgery BMI > 25 kg/m2 Swollen legs Varicose veins or History of unexplained or recurrent spontaneous Oral contraceptives or hormone replacement Sepsis (< 1 month) Serious lung disease, including pneumonia (< 1 month) Abnormal pulmonary function Acute myocardial infarction Congestive heart failure (< 1 month) History of inflammatory bowel disease Medical patient at bed rest Age 61-74 Arthroscopic surgery Major open surgery (> 45 min) Laparoscopic surgery (> 45 min) Malignancy Confined to bed (> 72 hours) Immobilizing plaster cast Central venous access Age >= 75 History of VTE Family history of VTE Factor V Leiden Prothrombin [id number] Lupus anticoagulant Anticardiolipin antibodies Elevated serum homocysteine Heparin-induced thrombocytopenia Other congenital or acquired thrombophilia Stroke (< 1 month) Elective arthroplasty Hip, pelvis, or leg fracture Acute spinal cord injury (< 1 month) Prophylaxis Regimen Total Risk Factor Score Risk Level Prophylaxis Regimen 0-1 Low Early ambulation 2 Moderate Order ONE of the following: *Sequential Compression Device (SCD) *Heparin 5000 units SQ BID 3-4 Higher Order ONE of the following medications: *Heparin 5000 units SQ TID *Enoxaparin/Lovenox 40 mg SQ daily (WT < 150 kg, CrCl > 30 mL/min) *Enoxaparin/Lovenox 30 mg SQ daily (WT < 150 kg, CrCl > 10-29 mL/min) *Enoxaparin/Lovenox 30 mg SQ BID (WT < 150 kg, CrCl > 30 mL/min) AND/OR *Sequential Compression Device (SCD) 5 or more Highest Order ONE of the following medications: *Heparin 5000 units SQ TID (Preferred with Epidurals) *Enoxaparin/Lovenox 40 mg SQ daily (WT < 150 kg, CrCl > 30 mL/min) *Enoxaparin/Lovenox 30 mg SQ daily (WT < 150 kg, CrCl > 10-29 mL/min) *Enoxaparin/Lovenox 30 mg SQ BID (WT < 150 kg, CrCl > 30 mL/min) AND *Sequential Compression Device (SCD) Assessment and Plan Assessment and Plan 76 year old man being admitted for symptoms consistent with chronic pancreatitis also found to have an elevated initial troponin to 0.12 then stable at 0.[address] segment changes in contiguous leads. Problem List: (1) Chronic pancreatitis ICD Codes: K86.1 - Other chronic pancreatitis Status: Acute Plan: Symptoms are mostly consistent with his chronic pancreatitis given his epigastric abdominal pain with N/V and association with meals Monitor closely for any development of complications asst with chronic pancreatitis and may consider further imaging if necessary Will hold off on imaging at this time given patient recently having an EUS performed as well as abd/pelvis CT along with MRCP Request ordered to obtain records for above imaging studies prior to further workup Initial lipase on admission WNL at 253 but with chronic pancreatitis, the enzymes may not be elevated no pain today and hungry - Will give patient liquids and advance slowly per his request - IVF hydration with NS at maintenance - Zofran prn - Tylenol and Morphine prn pain -will investigate changing pancreatic enzymes to fast release (2) ST segment changes on electrocardiogram ICD Codes: R94.31 - Abnormal electrocardiogram [ECG] [EKG] Status: Acute Plan: - Initial troponin on admission 0.12, then 0.16 x 2 - EKG showing slight ST elevations in the anteroseptal leads that is different from his last EKG in this EMR however this is from 2013 - Cardiology consulted Spoke with Dr. Aviles, cardiology, via phone to discuss concern for a STEMI - Recommended as the patient currently does not have any anginal symptoms that he would not undergo a cardiac catheterization at this time - Start patient on metoprolol 25 mg po bid - Continue baby aspirin EKG improved today Nitroglycerin 1/2 inch q8h prn chest pain, allow for nitro free interval at least 8 hours daily Patient started on a heparin drip per protocol. he can follow up with Cardiology as an outpt will advise him on anginal chest pain and to come to the hospital if he develops any sxs (3) Paroxysmal atrial fibrillation ICD Codes: I48.0 - Paroxysmal atrial fibrillation Status: Chronic Plan: Currently sinus rhythm Continue home amiodarone 200 mg po daily Cardiology consulted CHADSVASc score of 4 HASBLED of 2 Patient would likely benefit from chronic anticoagulation, will defer to cardiology at this time (4) ARIANA (acute kidney injury) ICD Codes: N17.9 - Acute kidney failure, unspecified Status: Acute Plan: Cr 1.33 on admission Last Cr in EMR 0.62 from 04/2014 Possibly acute on chronic in the setting of dehydration vs CKD IVF hydration as above Avoid nephrotoxins as able Monitor I/Os (5) Hypertension ICD Codes: I10 - Essential (primary) hypertension Status: Chronic Plan: Started metoprolol 25 mg po q12h Monitor vitals q4h (6) Leukocytosis ICD Codes: D72.829 - Elevated white blood cell count, unspecified Status: Acute Plan: Mildly elevated to 11.4, slight left shift present Clinically appears without an acute infectious process Continue to monitor clinically CXR demonstrating minimal left lower lobe airspace disease and volume loss consistent with atelectasis (7) Diabetes mellitus ICD Codes: E11.9 - Type 2 diabetes mellitus without complications Status: Chronic Plan: Accuchecks ACHS Low-dose NovoLog ISS Add basal if needed Hold home insulins as he is eating very little (8) Hyponatremia ICD Codes: E87.1 - Hypo-osmolality and hyponatremia Status: Acute Plan: Na 134, continue to monitor (9) Nutrition, metabolism, and development symptoms ICD Codes: R63.8 - Other symptoms and signs concerning food and fluid intake Status: Acute Plan: Fluids: NS at maintenance Electrolytes: continue to monitor Nutrition: liquids then advance DVT ppx: Heparin drip Problem Qualifiers (1) Chronic pancreatitis: Qualified Codes: K86.0 - Alcohol-induced chronic pancreatitis (2) Hypertension: Qualified Codes: I10 - Essential (primary) hypertension (3) Leukocytosis: Qualified Codes: D72.829 - Elevated white blood cell count, unspecified (4) Diabetes mellitus: Qualified Codes: E10.8 - Type 1 diabetes mellitus with unspecified complications Lisa Marley MD Jun 25, 2017 12:15
--- NOTE | 2017-06-25 13:31 | PD.CONS ---
HPI History of Present Illness This is a 76 year old male with history of pancreatitis that has been occurring since about 15 years ago. After his second attack of pancreatitis he quit drinking alcohol completely and has not had any alcohol for 8 years. He had gallbladder out about 8 years ago. Over the last several months he has had four episodes of upper abdominal burning pain that is severe, associated with vomiting and diarrhea. He had EUS of pancreas for a small lesion in pancreas a few weeks ago and biopsy was negative for cancer, showed possible pancreatitis. Symptoms recurred yesterday and patient came to ED. His local GI physician in [facility] is on vacation and so he is not available for treating him. He is concerned that he continues to have symptoms after discharge from hospital and gets readmitted. Normal bowel habits in between episodes. Does not take much narcotic medicine and none after his discharge. Last colonoscopy 5 years ago. Does not take laxatives. PFSH Past Medical History Chest pain eval earlier was neg. Nuclear med stress test was negative. Past Surgical History Cholecystectomy Bowel obstruction Coded Allergies: No Known Allergies (Verified , 06/24/17) Medications Current Medications Medications (Trade) Dose Ordered Sig/Shalonda Route Start Time Stop Time Status Last Admin Sodium Chloride 1,000 ml @ 115 mls/hr [id number] IV 06/24/17 12:00 06/25/17 05:28 (NS Flush) 2 ml UNSCH PRN IV FLUSH 06/24/17 11:30 (NS Flush) 2 ml BID IV FLUSH 06/24/17 11:30 06/24/17 20:46 (Tylenol) 650 mg Q4H PRN PO 06/24/17 11:30 06/24/17 20:53 (Zofran Inj) 4 mg Q6H PRN IVP 06/24/17 11:30 06/25/17 00:26 (Narcan Inj) 0.4 mg UNSCH PRN IV PUSH 06/24/17 11:30 (NovoLOG SUPPLEMENTAL SCALE) 1 ACHS SLIDING SCALE SQ 06/24/17 12:00 06/25/17 12:00 (Cordarone) 200 mg DAILY PO 06/25/17 09:00 06/25/17 08:58 (Lopressor) 25 mg Q12HR PO 06/24/17 12:00 06/25/17 08:58 (Aspirin Chew) 81 mg DAILY CHEW 06/25/17 09:00 06/25/17 08:58 (D50w (Vial) Inj) 50 ml UNSCH PRN IV PUSH 06/24/17 12:15 (Glucagon Inj) 1 mg UNSCH PRN OTHER 06/24/17 12:15 (Catapres) 0.1 mg Q6H PRN PO 06/24/17 12:00 (Prinivil) 40 mg DAILY PO 06/25/17 09:00 06/25/17 08:57 (Nitroglycerin 2% Oint) 0.5 inch Q8HR PRN TOPICAL 06/24/17 17:45 (Morphine Inj) 2 mg Q4HR PRN IV PUSH 06/24/17 20:45 (Morphine Inj) 4 mg Q4HR PRN IV PUSH 06/24/17 22:30 06/25/17 00:59 (Norvasc) 2.5 mg DAILY PO 06/25/17 11:00 06/25/17 11:09 (Pill Splitter) 1 ea UNSCH PRN OTHER 06/25/17 11:00 Family History Cancer Social History does not drink, but was a heavy drinker in the past. GI Exam Vitals I&O Vital Signs Date Time Temp Pulse Resp B/P (MAP) Pulse Ox O2 Delivery O2 Flow Rate FiO2 06/25/17 10:34 98 Nasal Cannula 06/25/17 08:00 97.7 61 18 158/78 (104) 98 06/25/17 05:16 98.0 55 17 162/86 (111) 97 06/25/17 00:16 98.0 58 17 152/78 (102) 96 06/24/17 20:53 98.2 60 18 142/68 (92) 97 06/24/17 17:59 97 Nasal Cannula 2.00 06/24/17 16:00 97.9 55 20 168/83 (111) 96 06/24/17 13:31 97 Nasal Cannula 2.00 I/O 06/24/17 06/24/17 06/24/17 06/25/17 06/25/17 06/25/17 07:00 15:00 23:00 07:00 15:00 23:00 Intake Total 1000 ml 0 ml 1050 ml 60 ml Balance 1000 ml 0 ml 1050 ml 60 ml Intake Oral 0 ml IV Total 1000 ml 1050 ml 60 ml # Voids 1 # Bowel Movements 0 Laboratory Test 06/24/17 16:35 06/24/17 18:05 06/24/17 19:42 06/25/17 01:58 Magnesium Level 1.8 MG/DL Troponin I 0.16 NG/ML 0.16 NG/ML Prothrombin Time 11.4 SEC Prothromb Time International Ratio 1.0 RATIO Activated Partial Thromboplast Time 26.1 SEC 49.7 SEC Test 06/25/17 03:45 White Blood Count 8.4 TH/MM3 Red Blood Count 4.47 MIL/MM3 Hemoglobin 13.6 GM/DL Hematocrit 39.6 % Mean Corpuscular Volume 88.7 FL Mean Corpuscular Hemoglobin 30.5 PG Mean Corpuscular Hemoglobin Concent 34.4 % Red Cell Distribution Width 13.0 % Platelet Count 268 TH/MM3 Mean Platelet Volume 7.3 FL Neutrophils (%) (Auto) 72.1 % Lymphocytes (%) (Auto) 15.9 % Monocytes (%) (Auto) 8.8 % Eosinophils (%) (Auto) 2.6 % Basophils (%) (Auto) 0.6 % Neutrophils # (Auto) 6.1 TH/MM3 Lymphocytes # (Auto) 1.3 TH/MM3 Monocytes # (Auto) 0.7 TH/MM3 Eosinophils # (Auto) 0.2 TH/MM3 Basophils # (Auto) 0.0 TH/MM3 CBC Comment DIFF FINAL Differential Comment Activated Partial Thromboplast Time 43.9 SEC Blood Urea Nitrogen 15 MG/DL Creatinine 1.11 MG/DL Random Glucose 166 MG/DL Total Protein 7.0 GM/DL Albumin 2.9 GM/DL Calcium Level 8.3 MG/DL Alkaline Phosphatase 87 U/L Aspartate Amino Transf (AST/SGOT) 20 U/L Alanine Aminotransferase (ALT/SGPT) 19 U/L Total Bilirubin 0.5 MG/DL Sodium Level 140 MEQ/L Potassium Level 4.0 MEQ/L Chloride Level 107 MEQ/L Carbon Dioxide Level 25.5 MEQ/L Anion Gap 8 MEQ/L Estimat Glomerular Filtration Rate 65 ML/MIN Lipase 140 U/L Physical Examination HEENT: Pupils round and reactive to light; normocephalic; atraumatic; no jaundice. Throat is clear. NECK: Neck is supple, no JVD, no lymphadenopathy. CHEST: Chest is clear to auscultation and percussion. CARDIAC: Regular rate and rhythm with no murmur gallop or rubs. ABDOMEN: Soft, nondistended, nontender; no hepatosplenomegaly; bowel sounds are present in all four quadrants. EXTREMITIES: No clubbing, cyanosis, or edema. SKIN: Normal; no rash; no jaundice. MAXILLOFACIAL PATHOLOGY: No focal deficits; alert and oriented times three. Assessment and Plan Plan Imp: Recurrent episodes of epigastric pain, vomiting and diarrhea. Presumed to be pancreatitis but lipase is often normal. Plan: Repeat CT scan with PO contrast. Colon flush with miralax. Clear liquid diet only until diagnostic eval if complete. Further recommendation after above. Errol Casanova MD Jun 25, 2017 13:31
[2017-06-25] MEDS: POLYETHYLENE GLYCOL 17 GM PKG PO SCH ×4 (14:00→17:35)
[2017-06-25] MEDS ORDERED: DIATRIZOATE MEGLUM/DIATRIZOATE SOD 9 ML CUP PO ONE (14:00)
[2017-06-25] MEDS: HEPARIN SODIUM - SQ 10,000 UNITS/ML VIAL SQ SCH (22:02)
[2017-06-25] MEDS ORDERED: IOHEXOL 350 MG/ML 10 ML VIAL (for RAD DIAG) IVCONTRAST ONE (23:58)
[2017-06-26] VITALS (8 sets, daily range): BP systolic 115–185; BP diastolic 56–91; PULSE 56–73; RESP 18–20; TEMP 97.6–97.8; O2SAT 92–98
--- NOTE | 2017-06-26 00:29 | RADRPT ---
EXAM DATE/TIME: 06/26/2017 00:05 [facility] COMPARISON: No previous studies available for comparison. INDICATIONS : Upper abdominal pain. IV CONTRAST: 90 cc Omnipaque 350 (iohexol) IV ORAL CONTRAST: Prescribed oral contrast ingested. RADIATION DOSE: 13.28 CTDIvol (mGy) MEDICAL HISTORY : Pancreatitis. Diabetes mellitus type 2. Hypertension.Skin cancer. Prostate cancer. Hepatitis C. SURGICAL HISTORY : Cholecystectomy. ENCOUNTER: Initial ACUITY: 1 day PAIN SCALE: 4/10 LOCATION: Bilateral abdomen TECHNIQUE: Volumetric scanning of the abdomen and pelvis was performed. Using automated exposure control and ad justment of the mA and/or kV according to patient size, radiation dose was kept as low as reasonably achievable to obtain optimal diagnostic quality images. DICOM format image data is available electro nically for review and comparison. FINDINGS: Oval mass with indistinct margins seen of the pancreatic head, measures approximately 2.7 x 3.4 x 3.0 cm in size. Slight atrophy of the pancreatic body and tail but I don't see any pancreatic or biliary distention. Also no pathologic appearing lymphadenopathy seen. Liver has mild, diffuse fatty infiltration. No focal hepatic lesions seen. Previous cholecystectomy. Spleen and adrenal glands are normal. Several benign cysts are seen of both kidneys measuring up to 4 cm in size. There is mild bilateral hydronephrosis and diffuse but distal predominant hydroureter. N o stones are seen. Urinary bladder is nondistended. Radiation seeds are seen in a normal size prostat e. Penile prosthesis present. There is atherosclerosis of the abdominal aorta. 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 No inflam matory changes or other evidence of impending leak/rupture. No obstruction or acute inflammatory changes are seen of the gastrointestinal tract. Moderate severit y diverticulosis seen in the sigmoid colon. Chronic appearing interstitial opacities are seen of both lung bases. No acute pneumonia or pleural e ffusion demonstrated. CONCLUSION: 1. Ill-defined low density mass of the pancreatic head of definite concern for pancreatic adenocarcin shreyas but interestingly without significant pancreatic or biliary ductal dilatation. The abnormality is more masslike than would be expected for focal pancreatitis. 2. Mild fatty infiltration of the liver. Nothing focal. 3. Mild bilateral hydronephrosis/hydroureter, etiology and age uncertain. No stones are seen. Benign bilateral renal cysts. 4. Radiation pellets in a nonenlarged prostate. 5. Atherosclerosis and mild aneurysmal dilatation of the abdominal aorta. 6. Sigmoid colon diverticulosis. No diverticulitis or other acute inflammatory changes. 7. Previous cholecystectomy. Henok Keene MD on June 26, 2017 at 0:18 Board Certified Radiologist. This report was verified electronically.
[2017-06-26] MEDS: MORPHINE SULFATE 4 MG/ML INJ IV PUSH PRN ×2 (01:33→21:46)
[2017-06-26] MEDS: ONDANSETRON HCL 4 MG/2 ML VIAL IVP PRN ×2 (01:33→21:46)
[2017-06-26] MEDS ORDERED: LIPASE PO SCH (08:00)
[2017-06-26] MEDS ORDERED: PROTEASE PO SCH (08:00)
[2017-06-26] MEDS ORDERED: AMYLASE PO SCH (08:00)
[2017-06-26 09:13] LABS: ALBUMIN 2.8 GM/DL (3.4-5.0); AMYLASE 18 U/L (25-115); AST (GOT) 14 U/L (15-37); BICARBONATE 25.7 MEQ/L (21.0-32.0); BLOOD UREA NITROGEN 9 MG/DL (7-18); CALCIUM 8.5 MG/DL (8.5-10.1); CHLORIDE 102 MEQ/L (98-107); CREATININE 1.02 MG/DL (0.60-1.30); GLOMERULAR FILTRATION RATE 71 ML/MIN (>89); GLUCOSE,RANDOM 155 MG/DL (74-106); LIPASE 110 U/L (73-393); SODIUM (NA) 137 MEQ/L (136-145)
[2017-06-26 09:15] LABS: ALT (GPT) 16 U/L (12-78); CHOLESTEROL 160 MG/DL (120-200); TOTAL PROTEIN 6.9 GM/DL (6.4-8.2); TRIGLYCERIDES 127 MG/DL (42-150)
[2017-06-26 09:17] LABS: ALKALINE PHOSPHATASE 75 U/L (45-117); CHOLESTEROL/ HDL RATIO 4.77 RATIO; HDL CHOLESTEROL 33.5 MG/DL (40.0-60.0); LDL CHOLESTEROL 101 MG/DL (0-99); TOTAL BILIRUBIN ADULT 0.6 MG/DL (0.2-1.0)
[2017-06-26] MEDS: amLODIPine BESYLATE 5 MG TAB PO SCH (09:28)
[2017-06-26] MEDS: METOPROLOL TARTRATE 25 MG TAB PO SCH ×2 (09:28→21:48)
[2017-06-26] MEDS: LIPASE/PROTEASE/AMYLASE (12,000/38,000/60,000) CAP PO SCH ×3 (09:28→17:51)
[2017-06-26] MEDS: AMIODARONE 200 MG TAB PO SCH (09:28)
[2017-06-26] MEDS: LISINOPRIL 20 MG TAB PO SCH (09:29)
[2017-06-26] MEDS: HEPARIN SODIUM - SQ 10,000 UNITS/ML VIAL SQ SCH ×2 (09:29→21:48)
[2017-06-26] MEDS: ASPIRIN 81 MG CHEW TAB CHEW SCH (09:29)
--- NOTE | 2017-06-26 09:31 | HHI.FPPN ---
Subjective Remarks No acute events overnight. Patient states he is tolerating a clear liquid diet. Not complaining of any worsening abdominal pain and states overall it is relatively stable if not improved since admission. Medical records reviewed from a prior hospitalization from 04/01/2017 - 2016. Echo was performed and demonstrated normal EF. SPECT on 04/03/2017 also done showing no reversible defect. Anticoagulation was discussed with the patient given his a-fib and patient and daughter elected not to proceed with anticoagulation. MRCP performed on 04/06/2017 was an unremarkable study; showed no significant ductal dilation, no evidence of choledocholithiasis, cholecystectomy changes were noted. Patient denies any CP, SOB, palpitations this AM. (Servando Pérez MD R2) Objective Vitals Vital Signs Date Time Temp Pulse Resp B/P (MAP) Pulse Ox O2 Delivery O2 Flow Rate FiO2 06/26/17 08:00 97.8 56 18 130/70 (90) 98 06/26/17 04:00 97.6 64 19 163/80 (107) 95 06/26/17 00:00 97.7 64 18 152/80 (104) 98 06/25/17 21:49 97 Nasal Cannula 2.00 06/25/17 20:00 97.7 60 17 162/70 (100) 95 06/25/17 20:00 62 06/25/17 16:00 97.7 84 20 160/80 (106) 97 06/25/17 12:00 97.2 66 18 170/80 (110) 97 06/25/17 10:34 98 Nasal Cannula I/O 06/25/17 06/25/17 06/25/17 06/26/17 06/26/17 06/26/17 07:00 15:00 23:00 07:00 15:00 23:00 Intake Total 1050 ml 60 ml 2320 ml 0 ml Output Total 2100 ml 1100 ml Balance 1050 ml 60 ml 220 ml -1100 ml Intake Oral 1320 ml 0 ml IV Total 1050 ml 60 ml 1000 ml Output Urine Total 2100 ml 1100 ml # Bowel Movements 1 4 (Servando Pérez MD R2) Result Diagram: 06/25/17 0345 06/26/17 0745 Objective Remarks GENERAL: NAD, lying comfortably in bed NEURO: Alert. Normal speech. marketing senior recruiter grossly intact. Motor grossly normal. SKIN: Warm and dry. No rashes or erythema. HEAD: Normocephalic. Atraumatic. EYES: EOMI. No scleral icterus. No injection or drainage. ENT: No nasal drainage. Moist mucous membranes. No oral ulcers or lesions. NECK: Supple, trachea midline. No JVD. No carotid bruits. CARDIOVASCULAR: Regular rate and rhythm without murmurs, rubs, or gallops. Peripheral pulses 2+. RESPIRATORY: Breath sounds clear to auscultation and equal bilaterally, without wheezes, rales, or rhonchi. No accessory muscle use. GASTROINTESTINAL: Abdomen soft, nontender, nondistended, normal BS. No organomegaly or masses. No rebound tenderness. No guarding. MUSCULOSKELETAL: No lower extremity edema. Normal range of motion. BACK: Nontender without obvious deformity. (Servando Pérez MD R2) A/P Assessment and Plan 76 year old man admitted for symptoms consistent with chronic pancreatitis as well as admission to rule out an ACS. Discharge Planning Anticipate discharge following further workup for GI (Servando Pérez MD R2) Attending Attestation Patient seen and examined. Case reviewed and discussed with the resident team. Agree with plan of care as discussed with me and documented in the resident note. Spoke to pt and his daughter. He has an unusual history of pancreatic problems "for 40 years". He quit alcohol many years ago which helped significantly. Per pt and daughter, he would go more than 5 years normally between episodes of pancreatitis. He has no daily or chronic pain from this except when having a flare. He developed 4 episodes of pancreatitis requiring hospitalization since March. This is very unusual for him. He reports having a biopsy of the mass seen at the head of the pancreas 2 weeks ago that showed chronic pancreatitis, scarring of the pancreas and no cancer. Discussed with him and his daughter that sometimes short acting enzymes can help. If this does not work he could consider going to a GI Dr who specializes in pancreatic problems and could discuss this with his GI Dr he sees regularly. (Lisa Marley MD) Problem List: (1) Chronic pancreatitis ICD Codes: K86.1 - Other chronic pancreatitis Status: Chronic Plan: Symptoms are mostly consistent with his chronic pancreatitis given his epigastric abdominal pain with N/V and association with meals Monitor closely for any development of complications asst with chronic pancreatitis and may consider further imaging if necessary Initial lipase on admission WNL at 253 trending to 140 - 110 but with chronic pancreatitis, the enzymes may not be elevated No pain today - CLD per GI - IVF hydration with NS at maintenance - Zofran prn - Tylenol and Morphine prn pain - Continue Creon Medical records reviewed from a prior hospitalization from 04/01/2017 - 04/07/2017. - Echo demonstrated normal EF. - SPECT on 04/03/2017 also done showing no reversible defect. Anticoagulation was discussed with the patient given his a-fib and patient and daughter elected not to proceed with anticoagulation. - MRCP performed on 04/06/2017 was an unremarkable study; showed no significant ductal dilation, no evidence of choledocholithiasis, cholecystectomy changes were noted. (2) ST segment changes on electrocardiogram ICD Codes: R94.31 - Abnormal electrocardiogram [ECG] [EKG] Status: Resolved Plan: - Initial troponin on admission 0.12, then 0.16 x 2 - EKG showing slight ST elevations in the anteroseptal leads that is different from his last EKG in this EMR however this is from 2013 - Cardiology consulted Spoke with Dr. Aviles, cardiology, via phone to discuss concern for a STEMI - Recommended as the patient currently does not have any anginal symptoms that he would not undergo a cardiac catheterization at this time - Start patient on metoprolol 25 mg po bid - Continue baby aspirin EKG improved today Nitroglycerin 1/2 inch q8h prn chest pain, allow for nitro free interval at least 8 hours daily Heparin drip discontinued Continue heparin for venous thromboembolism ppx F/u cardiology as outpatient Will advise him on anginal chest pain and to come to the hospital if he develops any sxs Patient continues to deny any chest pain (3) Paroxysmal atrial fibrillation ICD Codes: I48.0 - Paroxysmal atrial fibrillation Status: Chronic Plan: Currently sinus rhythm Continue home amiodarone 200 mg po daily Cardiology consulted CHADSVASc score of 4 HASBLED of 2 May discuss anticoagulation with patient and daughter again Per previous medical records and hospitalization, patient and daughter elected not to proceed with anticoagulation (4) ARIANA (acute kidney injury) ICD Codes: N17.9 - Acute kidney failure, unspecified Status: Resolved Plan: Cr 1.33 on admission, now WNL Last Cr in EMR 0.62 from 04/2014 Possibly acute on chronic in the setting of dehydration vs CKD IVF hydration as above Avoid nephrotoxins as able Monitor I/Os (5) Hypertension ICD Codes: I10 - Essential (primary) hypertension Status: Chronic Plan: Started metoprolol 25 mg po q12h Monitor vitals q4h Amlodipine 2.5 mg po daily started per cards recommendations Continue lisinopril 40 mg po daily (6) Leukocytosis ICD Codes: D72.829 - Elevated white blood cell count, unspecified Status: Resolved Plan: Mildly elevated to 11.4, slight left shift present, now WNL Clinically appears without an acute infectious process Continue to monitor clinically CXR demonstrating minimal left lower lobe airspace disease and volume loss consistent with atelectasis (7) Diabetes mellitus ICD Codes: E11.9 - Type 2 diabetes mellitus without complications Status: Chronic Plan: Accuchecks ACHS Low-dose NovoLog ISS Add basal if needed Hold home insulins as he is eating very little (8) Hyponatremia ICD Codes: E87.1 - Hypo-osmolality and hyponatremia Status: Resolved Plan: Resolved, continue to monitor (9) Nutrition, metabolism, and development symptoms ICD Codes: R63.8 - Other symptoms and signs concerning food and fluid intake Status: Acute Plan: Fluids: NS at maintenance Electrolytes: WNL, continue to monitor Nutrition: CLD DVT ppx: Heparin 5000 units sq q12h (Servando Pérez MD R2) Problem Qualifiers (1) Chronic pancreatitis: Qualified Codes: K86.0 - Alcohol-induced chronic pancreatitis (2) Hypertension: Qualified Codes: I10 - Essential (primary) hypertension (3) Leukocytosis: Qualified Codes: D72.829 - Elevated white blood cell count, unspecified (4) Diabetes mellitus: Qualified Codes: E10.8 - Type 1 diabetes mellitus with unspecified complications Servando Pérez MD R2 Jun 26, 2017 09:31 Lisa Marley MD Jun 26, 2017 14:53
[2017-06-26] MEDS: INSULIN ASPART SUPPLEMENTAL SCALE SQ SCH ×4 (09:35→22:43)
[2017-06-26] MEDS: SODIUM CHLOR 0.9% 1000 ML INJ 1,000 ML IV SCH ×2 (10:49→12:02)
--- NOTE | 2017-06-26 12:57 | HHI.GIFU ---
Subjective Remarks Lying in bed in no apparent distress. Denies abdominal pain. Reports nausea, but no vomiting. Objective Vitals I&O Vital Signs Date Time Temp Pulse Resp B/P (MAP) Pulse Ox O2 Delivery O2 Flow Rate FiO2 06/26/17 12:00 97.7 73 18 131/74 (93) 97 06/26/17 08:00 97.8 56 18 130/70 (90) 98 06/26/17 04:00 97.6 64 19 163/80 (107) 95 06/26/17 00:00 97.7 64 18 152/80 (104) 98 06/25/17 21:49 97 Nasal Cannula 2.00 06/25/17 20:00 97.7 60 17 162/70 (100) 95 06/25/17 20:00 62 06/25/17 16:00 97.7 84 20 160/80 (106) 97 I/O 06/25/17 06/25/17 06/25/17 06/26/17 06/26/17 06/26/17 07:00 15:00 23:00 07:00 15:00 23:00 Intake Total 1050 ml 60 ml 2320 ml 0 ml Output Total 2100 ml 1100 ml Balance 1050 ml 60 ml 220 ml -1100 ml Intake Oral 1320 ml 0 ml IV Total 1050 ml 60 ml 1000 ml Output Urine Total 2100 ml 1100 ml # Bowel Movements 1 4 Laboratory Laboratory Tests Test 06/26/17 07:45 Blood Urea Nitrogen 9 Creatinine 1.02 Random Glucose 155 Total Protein 6.9 Albumin 2.8 Calcium Level 8.5 Alkaline Phosphatase 75 Aspartate Amino Transf (AST/SGOT) 14 Alanine Aminotransferase (ALT/SGPT) 16 Total Bilirubin 0.6 Sodium Level 137 Potassium Level 3.8 Chloride Level 102 Carbon Dioxide Level 25.7 Anion Gap 9 Estimat Glomerular Filtration Rate 71 Triglycerides Level 127 Cholesterol Level 160 LDL Cholesterol 101 HDL Cholesterol 33.5 Cholesterol/HDL Ratio 4.77 Amylase Level 18 Lipase 110 Imaging Last Impressions Abdomen/Pelvis CT 06/25/17 0000 Signed Impressions: Service Date/Time: Monday, June 26, 2017 00:05 - CONCLUSION: 1. Ill- defined low density mass of the pancreatic head of definite concern for pancreatic adenocarcinoma but interestingly without significant pancreatic or biliary ductal dilatation. The abnormality is more masslike than would be expected for focal pancreatitis. 2. Mild fatty infiltration of the liver. Nothing focal. 3. Mild bilateral hydronephrosis/hydroureter, etiology and age uncertain. No stones are seen. Benign bilateral renal cysts. 4. Radiation pellets in a nonenlarged prostate. 5. Atherosclerosis and mild aneurysmal dilatation of the abdominal aorta. 6. Sigmoid colon diverticulosis. No diverticulitis or other acute inflammatory changes. 7. Previous cholecystectomy. Henok Keene MD Chest X-Ray 06/24/17 0000 Signed Impressions: Service Date/Time: Saturday, June 24, 2017 08:21 - CONCLUSION: 1. Minimal left lower lobe airspace disease and volume loss consistent with atelectasis. Sourav Guevara MD Physical Exam HEENT: Normocephalic; atraumatic; no jaundice. NECK: Neck is supple CHEST: CTA CARDIAC: RRR with no murmur gallop or rubs. ABDOMEN: Soft, nondistended, nontender; no hepatosplenomegaly; bowel sounds are present in all four quadrants. EXTREMITIES: No clubbing, cyanosis, or edema. SKIN: Normal; no rash; no jaundice. ORACLE APPLICATION CONSULTANT: No focal deficits; alert and oriented times three. Assessment and Plan Plan ASSESSMENT: - Chronic pancreatitis, recurrent episodes of epigastric pain, vomiting and diarrhea. Patient reports history of pancreatitis 15 years ago. Reports that he quit drinking alcohol about 8 years ago after his second bout of pancreatitis. Patient has had 4 episodes of upper abdominal pain over the last several months, described as burning and associated with vomiting and diarrhea. EUS of pancreas a few weeks ago for a small lesion, biopsy was negative for cancer, showed possible pancreatitis. Denies any abdominal pain today. Has nausea, but no vomiting. Medical records reviewed from prior recent hospitalization (March 2017)--MRCP (04/06/17)--unremarkable study. CT Abdomen (06/26/17)--1. Ill-defined low density mass of the pancreatic head of definite concern for pancreatic adenocarcinoma but interestingly without significant pancreatic or biliary ductal dilatation. The abnormality is more masslike than would be expected for focal pancreatitis.2. Mild fatty infiltration of the liver. Nothing focal. 3. Mild bilateral hydronephrosis/ hydroureter, etiology and age uncertain. No stones are seen. Benign bilateral renal cysts. 4. Radiation pellets in a nonenlarged prostate. 5. Atherosclerosis and mild aneurysmal dilatation of the abdominal aorta. 6. Sigmoid colon diverticulosis. No diverticulitis or other acute inflammatory changes.7. Previous cholecystectomy. Lipase normal, 110 today. PLAN: - Clear liquid diet - IV hydration - Monitor labs - Zofran prn - Pain control - Supportive care - Further recommendations based on results of above. Patient seen and examined by Dr. Casanova and myself and this note is written on his behalf. Crystal Espino Jun 26, 2017 12:57
[2017-06-26] MEDS: PANTOPRAZOLE SOD 20 MG DELAYED RELEASE TAB PO SCH (17:52)
[2017-06-26] MEDS: SODIUM CHLORIDE 0.9% FLUSH 10 ML FLUSH IV FLUSH SCH ×2 (17:52→21:00)
--- NOTE | 2017-06-26 21:07 | EKG ---
Date Performed: 06/24/2017 Time Performed: 20:07:38 PTAGE: 76 years EKG: SINUS BRADYCARDIA WITH FIRST DEGREE AV BLOCK ST DEVIATION AND MODERATE T-WAVE ABNORMALITY, CONSIDER ANTERIOR ISCHEMIA ABNORMAL ECG PREVIOUS TRACING : 06/24/2017 12.00 DOCTOR: Roro Bautista Interpretating Date/Time 06/26/2017 20:58:39
--- NOTE | 2017-06-26 21:14 | EKG ---
Date Performed: 06/24/2017 Time Performed: 12:00:10 PTAGE: 76 years EKG: Sinus rhythm WITH FIRST DEGREE AV BLOCK ST DEVIATION AND MODERATE T-WAVE ABNORMALITY, CONSIDER ANTERIOR ISCHEMIA ABNORMAL ECG PREVIOUS TRACING : 06/24/2017 07.59 DOCTOR: Roro Bautista Interpretating Date/Time 06/26/2017 21:03:48
[2017-06-27] VITALS (9 sets, daily range): BP systolic 131–178; BP diastolic 68–93; PULSE 59–66; RESP 18–20; TEMP 97.2–98.1; O2SAT 93–99
[2017-06-27] MEDS: ONDANSETRON HCL 4 MG/2 ML VIAL IVP PRN ×3 (04:09→21:50)
[2017-06-27] MEDS: MORPHINE SULFATE 4 MG/ML INJ IV PUSH PRN ×3 (04:09→21:51)
[2017-06-27] MEDS: INSULIN ASPART SUPPLEMENTAL SCALE SQ SCH ×4 (08:00→20:32)
[2017-06-27 08:07] LABS: AUTOMATED NEUTROPHIL # 4.9 TH/MM3 (1.8-7.7); BASOPHIL % 0.5 % (0.0-2.0); EOSINOPHIL # 0.2 TH/MM3 (0-0.4); EOSINOPHIL % 2.5 % (0.0-4.0); LYMPH % 20.9 % (9.0-44.0); LYMPHOCYTE # 1.5 TH/MM3 (1.0-4.8); MEAN CELL VOLUME 88.9 FL (80.0-100.0); MEAN CORPUSCULAR HEMOGLOBIN 30.5 PG (27.0-34.0); MEAN CORPUSCULAR HGB CONC 34.3 % (32.0-36.0); MEAN PLATELET VOLUME 7.7 FL (7.0-11.0); MONO % 8.7 % (0.0-8.0); MONOCYTE # 0.6 TH/MM3 (0-0.9); NEUT % 67.4 % (16.0-70.0); PLATELET COUNT 252 TH/MM3 (150-450); RED BLOOD COUNT 4.28 MIL/MM3 (4.50-5.90); RED CELL DISTRIBUTION WIDTH 12.9 % (11.6-17.2); WHITE BLOOD COUNT 7.3 TH/MM3 (4.0-11.0)
[2017-06-27 08:33] LABS: BICARBONATE 28.1 MEQ/L (21.0-32.0); CALCIUM 8.7 MG/DL (8.5-10.1); CREATININE 1.05 MG/DL (0.60-1.30)
[2017-06-27] MEDS: LIPASE/PROTEASE/AMYLASE (12,000/38,000/60,000) CAP PO SCH ×3 (08:36→19:01)
[2017-06-27] MEDS: METOPROLOL TARTRATE 25 MG TAB PO SCH ×2 (08:36→21:00)
[2017-06-27] MEDS: amLODIPine BESYLATE 5 MG TAB PO SCH (08:36)
[2017-06-27] MEDS: HEPARIN SODIUM - SQ 10,000 UNITS/ML VIAL SQ SCH ×2 (08:36→20:34)
[2017-06-27] MEDS: PANTOPRAZOLE SOD 20 MG DELAYED RELEASE TAB PO SCH (08:37)
[2017-06-27] MEDS: ASPIRIN 81 MG CHEW TAB CHEW SCH (08:37)
[2017-06-27] MEDS: SODIUM CHLORIDE 0.9% FLUSH 10 ML FLUSH IV FLUSH SCH ×2 (08:37→20:34)
[2017-06-27] MEDS: LISINOPRIL 20 MG TAB PO SCH (08:37)
[2017-06-27] MEDS: AMIODARONE 200 MG TAB PO SCH (08:37)
--- NOTE | 2017-06-27 10:25 | HHI.FPPN ---
Subjective Remarks Mr Bates had only clear liquids for 3 days and then had tomato soup and ice cream and developed severe pain last night. He and his daughter were asking about possible surgery. They are concerned that even though the mass was biopsied and did not show cancer, there is always a concern with someone with a long history of pancreatic problems that they could develop cancer. Dr Casanova , [facility], also discussed having a surgical evaluation as Mr Bates may need some procedure even to stop the constant pancreatitis as he has lost 30 lbs since March with not being able to eat. Dr Webb was requested as the patient and his daughter know of a prior successful case where he worked on a pt with pancreatic cancer. Other than the worsening abdominal pain from the worsening pancreatitis, he has no complaints. Objective Vitals Vital Signs Date Time Temp Pulse Resp B/P (MAP) Pulse Ox O2 Delivery O2 Flow Rate FiO2 06/27/17 08:00 97.2 59 20 131/68 (89) 93 06/27/17 04:00 98.1 63 20 158/88 (111) 95 06/27/17 00:00 97.5 64 20 157/88 (111) 96 06/26/17 20:00 97.7 71 20 185/91 (122) 92 06/26/17 20:00 68 06/26/17 17:55 97 Nasal Cannula 2.00 06/26/17 16:00 97.6 59 18 115/56 (75) 97 06/26/17 13:31 97 Nasal Cannula 2.00 06/26/17 12:00 97.7 73 18 131/74 (93) 97 I/O 06/26/17 06/26/17 06/26/17 06/27/17 06/27/17 06/27/17 07:00 15:00 23:00 07:00 15:00 23:00 Intake Total 0 ml 960 ml 600 ml Output Total 1100 ml 1100 ml 500 ml Balance -1100 ml -140 ml 100 ml Intake Oral 0 ml 960 ml 600 ml Output Urine Total 1100 ml 1100 ml 500 ml # Voids 2 # Bowel Movements 4 2 1 Result Diagram: 06/27/17 0650 06/27/17 0650 Objective Remarks GENERAL: NAD, lying bed NEURO: Alert. Normal speech. director rehabilitation program grossly intact. Motor grossly normal. SKIN: Warm and dry. No rashes or erythema. HEAD: Normocephalic. Atraumatic. EYES: EOMI. No scleral icterus. No injection or drainage. ENT: No nasal drainage. Moist mucous membranes. No oral ulcers or lesions. NECK: Supple, trachea midline. No JVD. No carotid bruits. CARDIOVASCULAR: Regular rate and rhythm without murmurs, rubs, or gallops. Peripheral pulses 2+. RESPIRATORY: Breath sounds clear to auscultation and equal bilaterally, without wheezes, rales, or rhonchi. No accessory muscle use. GASTROINTESTINAL: Abdomen soft, slightly tender epigastric, nondistended, normal BS. No organomegaly or masses. No rebound tenderness. No guarding. MUSCULOSKELETAL: No lower extremity edema. Normal range of motion. BACK: Nontender without obvious deformity. Urinary Catheter: No Vascular Central Line Catheter: No A/P Assessment and Plan 76 year old man admitted for symptoms consistent with chronic pancreatitis as well as admission to rule out an ACS. Discharge Planning Anticipate discharge following further workup for GI Problem List: (1) Chronic pancreatitis ICD Codes: K86.1 - Other chronic pancreatitis Status: Chronic Plan: Symptoms are mostly consistent with his chronic pancreatitis given his epigastric abdominal pain with N/V and association with meals Monitor closely for any development of complications asst with chronic pancreatitis and may consider further imaging if necessary Initial lipase on admission WNL at 253 trending to 140 - 110 but with chronic pancreatitis, the enzymes may not be elevated some pain today, back on clear liquids Per discussion with GI as well as request of pt and daughter, will ask Surgery for opinion on whether he needs more extensive surgery with the loss of 30 lbs and mass at head of pancreas - CLD per GI - IVF hydration with NS at maintenance was heplocked as he is taking good po liquids, can restart if needed - Zofran prn - Tylenol and Morphine prn pain - Continue pancreatic enzymes Medical records reviewed from a prior hospitalization from 04/01/2017 - 04/07/2017. - Echo demonstrated normal EF. - SPECT on 04/03/2017 also done showing no reversible defect. Anticoagulation was discussed with the patient given his a-fib and patient and daughter elected not to proceed with anticoagulation. - MRCP performed on 04/06/2017 was an unremarkable study; showed no significant ductal dilation, no evidence of choledocholithiasis, cholecystectomy changes were noted. -biopsy did not show cancer (2) Paroxysmal atrial fibrillation ICD Codes: I48.0 - Paroxysmal atrial fibrillation Status: Chronic Plan: Currently sinus rhythm Continue home amiodarone 200 mg po daily Cardiology consulted CHADSVASc score of 4 HASBLED of 2 May discuss anticoagulation with patient and daughter again Per previous medical records and hospitalization, patient and daughter elected not to proceed with anticoagulation per evaluation of monitor heart rate sinus no lower than 60 will D/C heart monitor (3) Hypertension ICD Codes: I10 - Essential (primary) hypertension Status: Chronic Plan: Started metoprolol 25 mg po q12h Monitor vitals q4h Amlodipine 2.5 mg po daily started per cards recommendations Continue lisinopril 40 mg po daily (4) Leukocytosis ICD Codes: D72.829 - Elevated white blood cell count, unspecified Status: Resolved Plan: Mildly elevated to 11.4, slight left shift present, now WNL Clinically appears without an acute infectious process Continue to monitor clinically CXR demonstrating minimal left lower lobe airspace disease and volume loss consistent with atelectasis incentive spirometer and encourage ambulation (5) Diabetes mellitus ICD Codes: E11.9 - Type 2 diabetes mellitus without complications Status: Chronic Plan: Accuchecks ACHS Low-dose NovoLog ISS Add basal if needed Hold home insulins as he is eating very little (6) Nutrition, metabolism, and development symptoms ICD Codes: R63.8 - Other symptoms and signs concerning food and fluid intake Status: Acute Plan: Fluids: NS at maintenance Electrolytes: WNL, continue to monitor Nutrition: CLD DVT ppx: Heparin 5000 units sq q12h (7) ST segment changes on electrocardiogram ICD Codes: R94.31 - Abnormal electrocardiogram [ECG] [EKG] Status: Resolved Plan: - Initial troponin on admission 0.12, then 0.16 x 2 - EKG showing slight ST elevations in the anteroseptal leads that is different from his last EKG in this EMR however this is from 2014 - Cardiology consulted- Recommended as the patient currently does not have any anginal symptoms that he would not undergo a cardiac catheterization at this time - Started patient on metoprolol 25 mg po bid - Continue baby aspirin EKG improved Nitroglycerin 1/2 inch q8h prn chest pain, allow for nitro free interval at least 8 hours daily Heparin drip discontinued, sq heparin only for venous thromboembolism ppx F/u cardiology as outpatient Will advise him on anginal chest pain and to come to the hospital if he develops any sxs Patient continues to deny any chest pain (8) ARIANA (acute kidney injury) ICD Codes: N17.9 - Acute kidney failure, unspecified Status: Resolved Plan: Cr 1.33 on admission, now WNL Last Cr in EMR 0.62 from 04/2014 Possibly acute on chronic in the setting of dehydration vs CKD Avoid nephrotoxins as able Monitor I/Os Problem Qualifiers (1) Chronic pancreatitis: Qualified Codes: K86.0 - Alcohol-induced chronic pancreatitis (2) Hypertension: Qualified Codes: I10 - Essential (primary) hypertension (3) Leukocytosis: Qualified Codes: D72.829 - Elevated white blood cell count, unspecified (4) Diabetes mellitus: Qualified Codes: E10.8 - Type 1 diabetes mellitus with unspecified complications Lisa Marley MD Jun 27, 2017 10:25
[2017-06-27] MEDS ORDERED: cloNIDine HCL 0.1 MG TAB PO PRN (21:15)
[2017-06-28] VITALS (9 sets, daily range): BP systolic 117–181; BP diastolic 57–84; PULSE 54–64; RESP 18–22; TEMP 97.2–98.2; O2SAT 92–99
[2017-06-28] MEDS: ONDANSETRON HCL 4 MG/2 ML VIAL IVP PRN ×3 (05:29→19:35)
[2017-06-28] MEDS: MORPHINE SULFATE 4 MG/ML INJ IV PUSH PRN ×3 (05:30→19:34)
[2017-06-28] MEDS: SODIUM CHLORIDE 0.9% FLUSH 10 ML FLUSH IV FLUSH SCH ×2 (07:26→20:44)
[2017-06-28] MEDS: SODIUM CHLOR 0.9% 1000 ML INJ 1,000 ML IV SCH ×2 (09:00→12:32)
[2017-06-28] MEDS: ASPIRIN 81 MG CHEW TAB CHEW SCH (09:17)
[2017-06-28] MEDS: PANTOPRAZOLE SOD 20 MG DELAYED RELEASE TAB PO SCH (09:17)
[2017-06-28] MEDS: METOPROLOL TARTRATE 25 MG TAB PO SCH ×2 (09:17→20:44)
[2017-06-28] MEDS: amLODIPine BESYLATE 5 MG TAB PO SCH (09:17)
[2017-06-28] MEDS: AMIODARONE 200 MG TAB PO SCH (09:17)
[2017-06-28] MEDS: LISINOPRIL 20 MG TAB PO SCH (09:17)
[2017-06-28] MEDS: LIPASE/PROTEASE/AMYLASE (12,000/38,000/60,000) CAP PO SCH ×3 (09:17→17:00)
[2017-06-28] MEDS: HEPARIN SODIUM - SQ 10,000 UNITS/ML VIAL SQ SCH ×2 (09:18→20:44)
[2017-06-28] MEDS: INSULIN ASPART SUPPLEMENTAL SCALE SQ SCH ×4 (09:18→20:45)
--- NOTE | 2017-06-28 10:05 | HHI.FPPN ---
Subjective Remarks Last night, BP was elevated at 160s-180s/80s last night. Clonidine PRN was added. Patient's BP is within normal limits this morning. Has been on full liquid diet, ate jello and tea last night but experienced significant abdominal pain within a couple hours. Endorses diarrhea. Denies chest pain, SOB, constipation, or fevers. Patient states he is very hungry this morning and is eating hot cereal. Has been taking pancreatic enzymes after meals. (Celeste Romero MD R1) Objective Vitals Vital Signs Date Time Temp Pulse Resp B/P (MAP) Pulse Ox O2 Delivery O2 Flow Rate FiO2 06/28/17 04:00 Room Air 06/28/17 04:00 98.2 62 18 117/57 (77) 99 06/28/17 00:00 Room Air 06/28/17 00:00 97.6 64 18 181/84 (116) 94 06/27/17 20:25 97 Nasal Cannula 2.00 06/27/17 20:00 97.7 61 18 168/83 (111) 97 06/27/17 20:00 Room Air 06/27/17 20:00 66 06/27/17 16:00 97.8 66 20 178/93 (121) 99 06/27/17 13:54 93 Nasal Cannula 2.00 06/27/17 12:00 97.6 60 20 171/80 (110) 94 I/O 06/27/17 06/27/17 06/27/17 06/28/17 06/28/17 06/28/17 07:00 15:00 23:00 07:00 15:00 23:00 Intake Total 600 ml Output Total 500 ml 400 ml Balance 100 ml -400 ml Intake Oral 600 ml Output Urine Total 500 ml 400 ml # Voids 2 1 # Bowel Movements 1 0 (Celeste Romero MD R1) Result Diagram: 06/27/17 0650 06/27/17 0650 Objective Remarks GENERAL: NAD, lying bed NEURO: Alert. Normal speech. gluing machine operator automatic grossly intact. Motor grossly normal. SKIN: Warm and dry. No rashes or erythema. HEAD: Normocephalic. Atraumatic. EYES: EOMI. No scleral icterus. No injection or drainage. ENT: No nasal drainage. Moist mucous membranes. No oral ulcers or lesions. NECK: Supple, trachea midline. CARDIOVASCULAR: Regular rate and rhythm without murmurs, rubs, or gallops. RESPIRATORY: Breath sounds clear to auscultation and equal bilaterally, without wheezes, rales, or rhonchi. GASTROINTESTINAL: Abdomen soft, mild tenderness to palpation in the epigastric region, nondistended, normal BS. MUSCULOSKELETAL: No lower extremity edema. Normal range of motion. (Celeste Romero MD R1) A/P Assessment and Plan 76 year old man admitted for symptoms consistent with chronic pancreatitis as well as admission to rule out an ACS. Discharge Planning Anticipate discharge following further workup for GI (Celeste Romero MD R1) Attending Attestation Patient seen and examined. Case reviewed and discussed with the resident team. Agree with plan of care as discussed with me and documented in the resident note. suspect his high BP was related to pain (Lisa Marley MD) Problem List: (1) Chronic pancreatitis ICD Codes: K86.1 - Other chronic pancreatitis Status: Chronic Plan: Symptoms are mostly consistent with his chronic pancreatitis given his epigastric abdominal pain with N/V and association with meals Initial lipase on admission WNL at 253 trending to 140 - 110 but with chronic pancreatitis, the enzymes may not be elevated pain today with ingestion of part of liquid diet last night, on clear liquids Per discussion with GI as well as request of pt and daughter, Surgery was consulted for opinion on whether he needs more extensive surgery with the loss of 30 lbs and mass at head of pancreas. Because patient has failed medical therapy for controlling chronic pancreatitis and has in fact, had an increase in episodic flares, we highly appreciate the surgery team's recommendations. - CLD per GI - IVF hydration with NS at maintenance due to reduced PO intake - Zofran prn - Tylenol and Morphine prn pain - Continue pancreatic enzymes - Protonix 20 mg PO daily Medical records reviewed from a prior hospitalization from 04/01/2017 - 04/07/2017. - Echo demonstrated normal EF. - SPECT on 04/03/2017 also done showing no reversible defect. Anticoagulation was discussed with the patient given his a-fib and patient and daughter elected not to proceed with anticoagulation. - MRCP performed on 04/06/2017 was an unremarkable study; showed no significant ductal dilation, no evidence of choledocholithiasis, cholecystectomy changes were noted. -biopsy did not show cancer (2) Paroxysmal atrial fibrillation ICD Codes: I48.0 - Paroxysmal atrial fibrillation Status: Chronic Plan: Currently sinus rhythm Continue home amiodarone 200 mg po daily Metroprolol 25 mg Q12H CHADSVASc score of 4 HASBLED of 2 May discuss anticoagulation with patient and daughter again Per previous medical records and hospitalization, patient and daughter elected not to proceed with anticoagulation per evaluation of monitor heart rate sinus no lower than 60 will D/C heart monitor (3) Hypertension ICD Codes: I10 - Essential (primary) hypertension Status: Chronic Plan: Started metoprolol 25 mg po q12h Monitor vitals q4h Amlodipine 2.5 mg po daily started per cards recommendations Continue lisinopril 40 mg po daily Clonidine 0.1 mg PRN for SBP >180 (4) Diabetes mellitus ICD Codes: E11.9 - Type 2 diabetes mellitus without complications Status: Chronic Plan: Glucose levels have been >150 in the AM and throughout the day. Will increase to medium-dose NovoLog SSI Accuchecks ACHS Add basal if needed (5) Nutrition, metabolism, and development symptoms ICD Codes: R63.8 - Other symptoms and signs concerning food and fluid intake Status: Acute Plan: Fluids: NS at maintenance Electrolytes: WNL, continue to monitor Nutrition: CLD DVT ppx: Heparin 5000 units sq q12h (Celeste Romero MD R1) Problem Qualifiers (1) Chronic pancreatitis: Qualified Codes: K86.0 - Alcohol-induced chronic pancreatitis (2) Hypertension: Qualified Codes: I10 - Essential (primary) hypertension (3) Diabetes mellitus: Qualified Codes: E10.8 - Type 1 diabetes mellitus with unspecified complications Celeste Romero MD R1 Jun 28, 2017 10:05 Lisa Marley MD Jun 30, 2017 13:45
--- NOTE | 2017-06-28 15:07 | PD.CONS ---
cc: Inocente Webb MD [facility] Service General Surgery Consult Requested By Dr. Romero Reason for Consult Chronic pancreatitis; evaluation for surgery Primary Care Physician Gregg Fernández DO History of Present Illness This is a 76 year old male with a past medical history of atrial fibrillation, chronic pancreatitis, hypertension, hepatitis C, prostate cancer and diabetes mellitus. Over the past 19 years of age and has had multiple episodes of pancreatitis. Approximately 4 years ago the patient was placed on TPN and recovered from that episode of pancreatitis. Since March of this year the patient has had four episodes of pancreatitis and inability to tolerate by mouth intake. The patient has has an MRCP which was negative and an EUS in [place] where a mass was biopsies and was negative for malignancy. The patient and his daughter would like a surgical evaluation at this time. Review of Systems Constitutional: DENIES: Fatigue Endocrine: DENIES: Polydipsia, Polyuria, Polyphagia Eyes: DENIES: Diplopia, Eye inflammation Ears, nose, mouth, throat: DENIES: Hearing loss Respiratory: DENIES: Cough Cardiovascular: DENIES: Chest pain, Lower Extremity Edema Gastrointestinal: COMPLAINS OF: Abdominal pain, Nausea Genitourinary: DENIES: Urgency Musculoskeletal: DENIES: Muscle aches Integumentary: DENIES: Abnormal pigmentation Hematologic/lymphatic: DENIES: Bruising Immunologic/allergic: DENIES: Eczema Neurologic: DENIES: Headache, Localized weakness Psychiatric: DENIES: Mood changes, Depression, Hallucinations Past Family Social History Past Medical History Atrial fibrillation Chronic pancreatitis Hypertension Hepatitis C Prostate cancer Diabetes mellitus Past Surgical History Laparoscopic cholecystectomy Laparoscopic appendectomy Knee and shoulder repair Reported Medications List is extensive but please note the patient does take aspirin daily Allergies: Coded Allergies: No Known Allergies (Verified , 06/24/17) Active Ordered Medications Current Medications Medications (Trade) Dose Ordered Sig/Shalonda Route Start Time Stop Time Status Last Admin (NS Flush) 2 ml UNSCH PRN IV FLUSH 06/24/17 11:30 (NS Flush) 2 ml BID IV FLUSH 06/24/17 11:30 06/28/17 07:26 (Tylenol) 650 mg Q4H PRN PO 06/24/17 11:30 06/24/17 20:53 (Narcan Inj) 0.4 mg UNSCH PRN IV PUSH 06/24/17 11:30 (Cordarone) 200 mg DAILY PO 06/25/17 09:00 06/28/17 09:17 (Lopressor) 25 mg Q12HR PO 06/24/17 12:00 06/28/17 09:17 (Aspirin Chew) 81 mg DAILY CHEW 06/25/17 09:00 06/28/17 09:17 (D50w (Vial) Inj) 50 ml UNSCH PRN IV PUSH 06/24/17 12:15 (Glucagon Inj) 1 mg UNSCH PRN OTHER 06/24/17 12:15 (Prinivil) 40 mg DAILY PO 06/25/17 09:00 06/28/17 09:17 (Nitroglycerin 2% Oint) 0.5 inch Q8HR PRN TOPICAL 06/24/17 17:45 (Morphine Inj) 2 mg Q4HR PRN IV PUSH 06/24/17 20:45 06/28/17 05:30 (Morphine Inj) 4 mg Q4HR PRN IV PUSH 06/24/17 22:30 06/28/17 11:27 (Norvasc) 2.5 mg DAILY PO 06/25/17 11:00 06/28/17 09:17 (Pill Splitter) 1 ea UNSCH PRN OTHER 06/25/17 11:00 (Heparin Inj) 5,000 units Q12HR SQ 06/25/17 21:00 06/28/17 09:18 (Creon 12-38-60) 1 cap TID@0800,1200,1700 PO 06/26/17 08:00 06/28/17 12:02 (Protonix) 20 mg DAILY PO 06/26/17 14:30 06/28/17 09:17 (Catapres) 0.1 mg Q6H PRN PO 06/27/17 21:15 06/28/17 00:45 Sodium Chloride 1,000 ml @ 140 mls/hr Q7H9M IV 06/28/17 09:00 06/28/17 12:32 (Zofran Inj) 4 mg Q4HR PRN IVP 06/28/17 08:59 07/02/17 08:58 06/28/17 11:26 (NovoLOG SUPPLEMENTAL SCALE) 1 ACHS SLIDING SCALE SQ 06/28/17 12:00 06/28/17 12:32 Family History No family history of esophagus, colon or rectal cancer. Social History The patient denies current tobacco use The patient denies current EtOH use; in the past has used alcohol but has not had any in the past 8 years The patient denies illicit drug use Physical Exam Vital Signs Vital Signs Date Time Temp Pulse Resp B/P (MAP) Pulse Ox O2 Delivery O2 Flow Rate FiO2 06/28/17 12:55 Room Air 06/28/17 12:00 97.4 56 18 129/63 (85) 96 06/28/17 09:38 92 Nasal Cannula 2.00 06/28/17 08:00 97.2 57 18 123/67 (85) 98 06/28/17 04:00 Room Air 06/28/17 04:00 98.2 62 18 117/57 (77) 99 06/28/17 00:00 Room Air 06/28/17 00:00 97.6 64 18 181/84 (116) 94 06/27/17 20:25 97 Nasal Cannula 2.00 06/27/17 20:00 97.7 61 18 168/83 (111) 97 06/27/17 20:00 Room Air 06/27/17 20:00 66 06/27/17 16:00 97.8 66 20 178/93 (121) 99 Physical Exam GENERAL: 76 year old male resting in bed in no acute distress. SKIN: Warm and dry. HEAD: Atraumatic. Normocephalic. EYES: Pupils equal and round. No scleral icterus. No injection or drainage. ENT: No nasal bleeding or discharge. Mucous membranes pink and moist. NECK: Trachea midline. N= CARDIOVASCULAR: Regular rate and rhythm. RESPIRATORY: No accessory muscle use. Clear to auscultation. Breath sounds equal bilaterally. GASTROINTESTINAL: Abdomen soft, nondistended. Mild RUQ tenderness with palpation. MUSCULOSKELETAL: Extremities without clubbing, cyanosis, or edema. No obvious deformities. NEUROLOGICAL: Awake and alert. No obvious cranial nerve deficits. Motor grossly within normal limits. Five out of 5 muscle strength in the arms and legs. Normal speech. PSYCHIATRIC: Appropriate mood and affect; insight and judgment normal. Result Diagram: 06/27/1764906/27/17649 Assessment and Plan Assessment and Plan 76 year old male with multiple recent episodes of chronic pancreatitis -Patient should recover from this episode of pancreatitis before any surgical intervention -Since patient not tolerating PO intake; recommend PICC line placement and TPN -I will work with out office to get referral to Dr. Garcia at [facility] in [place], [place] who specialists in surgical procedures in non-cancer pancreas patients -All questions of patient and daughter were answered; they agree with plan -Thank you for this consult; We will continue to follow -Ancipitate DC home on TPN when pain controlled Discussed Condition With Dr. Jon Romero Mr. Bates and daughter at bedside Attending Statement The exam, history, and the medical decision-making described in the above note were completed with the assistance of the mid-level provider. I reviewed and agree with the findings presented. I attest that I had a [id number] encounter with the patient on the same day, and personally performed and documented my assessment and findings in the medical record. Patient with recurrent acute pancreatitis, recurrent, likely underlying chronic pancreatitis. He has undergone workup with no known etiology; malignancy less likely after EUS and biopsy recently. Surgical intervention contraindicated at this time in seeing of acute pancreatitis. CT shows relative sparing of the body/tail with normal duct and no atrophy. I recommend continued supportive care for acute pancreatitis, followed by evaluation by a pancreas surgeon who specializes in chronic pancreatitis. I had a long discussion with the family and patient and they agree with the plan of care. Ava Walton Jun 28, 2017 15:07 Inocente Webb MD Jun 29, 2017 14:18
[2017-06-28] MEDS ORDERED: SODIUM CHLORIDE 0.9% FLUSH 10 ML FLUSH IV FLUSH PRN (16:15)
--- NOTE | 2017-06-28 17:20 | RADRPT ---
EXAM DATE/TIME: 06/28/2017 16:58 [facility] COMPARISON: CHEST SINGLE AP, June 24, 2017, 8:21. INDICATIONS : Picc line placement. MEDICAL HISTORY : Pancreatitis. A-fib. SURGICAL HISTORY : Appendectomy. Cholecystectomy. ENCOUNTER: Subsequent ACUITY: 4 - 6 days PAIN SCORE: 0/10 LOCATION: Bilateral chest FINDINGS: Right PICC line catheter tip projects over the mid superior vena cava. There are patchy infiltrates in the left lower lung with loss of delineation of portions of the left hemidiaphragm; this is a new finding compared to prior chest x-ray. No definite infiltrates on the right side. No evidence of pn eumothorax. The heart is upper limits normal size. CONCLUSION: 1. PICC line in good position. 2. New infiltrates in the left lower lung. Arron Cooper MD on June 28, 2017 at 17:17 Board Certified Radiologist. This report was verified electronically.
--- NOTE | 2017-06-28 17:32 | HHI.GIFU ---
GI Follow-up Note Consult Follow-up Subjective: Patient laying in bed comfortably, feeling better.States he is ok as long as he does not eat.He lost 30 lbs in the last few month, had recent eus in [place], confirmed pancreatic mass, pathology was negative for malignancy .States he is compliant with pancreatic enzymes with meals and snacks . Objective: PHYSICAL EXAMINATION: Vitals signs stable No fever Laboratory Tests Test 06/27/17 06:50 06/27/17 12:16 White Blood Count 7.3 TH/MM3 Red Blood Count 4.28 MIL/MM3 Hemoglobin 13.0 GM/DL Hematocrit 38.0 % Mean Corpuscular Volume 88.9 FL Mean Corpuscular Hemoglobin 30.5 PG Mean Corpuscular Hemoglobin Concent 34.3 % Red Cell Distribution Width 12.9 % Platelet Count 252 TH/MM3 Mean Platelet Volume 7.7 FL Neutrophils (%) (Auto) 67.4 % Lymphocytes (%) (Auto) 20.9 % Monocytes (%) (Auto) 8.7 % Eosinophils (%) (Auto) 2.5 % Basophils (%) (Auto) 0.5 % Neutrophils # (Auto) 4.9 TH/MM3 Lymphocytes # (Auto) 1.5 TH/MM3 Monocytes # (Auto) 0.6 TH/MM3 Eosinophils # (Auto) 0.2 TH/MM3 Basophils # (Auto) 0.0 TH/MM3 CBC Comment DIFF FINAL Differential Comment Blood Urea Nitrogen 8 MG/DL Creatinine 1.05 MG/DL Random Glucose 162 MG/DL Calcium Level 8.7 MG/DL Sodium Level 139 MEQ/L Potassium Level 4.2 MEQ/L Chloride Level 103 MEQ/L Carbon Dioxide Level 28.1 MEQ/L Anion Gap 8 MEQ/L Estimat Glomerular Filtration Rate 69 ML/MIN CA 19-9 Antigen 33.4 U/ML HEENT: Pupils round and reactive to light; normocephalic; atraumatic; no jaundice. Throat is clear. NECK: Neck is supple, no JVD, no lymphadenopathy. CHEST: Chest is clear to auscultation and percussion. CARDIAC: Regular rate and rhythm with no murmur gallop or rubs. ABDOMEN: Soft, nondistended, nontender; no hepatosplenomegaly; bowel sounds are present in all four quadrants. EXTREMITIES: No clubbing, cyanosis, or edema. SKIN: Normal; no rash; no jaundice. 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 Available Data (labs, X- Rays, Procedues) : Laboratory Tests Test 06/27/17 06:50 06/27/17 12:16 White Blood Count 7.3 TH/MM3 Red Blood Count 4.28 MIL/MM3 Hemoglobin 13.0 GM/DL Hematocrit 38.0 % Mean Corpuscular Volume 88.9 FL Mean Corpuscular Hemoglobin 30.5 PG Mean Corpuscular Hemoglobin Concent 34.3 % Red Cell Distribution Width 12.9 % Platelet Count 252 TH/MM3 Mean Platelet Volume 7.7 FL Neutrophils (%) (Auto) 67.4 % Lymphocytes (%) (Auto) 20.9 % Monocytes (%) (Auto) 8.7 % Eosinophils (%) (Auto) 2.5 % Basophils (%) (Auto) 0.5 % Neutrophils # (Auto) 4.9 TH/MM3 Lymphocytes # (Auto) 1.5 TH/MM3 Monocytes # (Auto) 0.6 TH/MM3 Eosinophils # (Auto) 0.2 TH/MM3 Basophils # (Auto) 0.0 TH/MM3 CBC Comment DIFF FINAL Differential Comment Blood Urea Nitrogen 8 MG/DL Creatinine 1.05 MG/DL Random Glucose 162 MG/DL Calcium Level 8.7 MG/DL Sodium Level 139 MEQ/L Potassium Level 4.2 MEQ/L Chloride Level 103 MEQ/L Carbon Dioxide Level 28.1 MEQ/L Anion Gap 8 MEQ/L Estimat Glomerular Filtration Rate 69 ML/MIN CA 19-9 Antigen 33.4 U/ML ASSESSMENT/PLAN: Recurrent pancreatis unclear etiology abdominal pain with eating most likely secondary the above -currently on TPN/ Pancreatic mass-recent EUS with FNA in [place]-pathology -negative for malignancy weight loss secondary the above Recommendations Agree with surgery referral tertiary center continue tpn Igg4 level may consider CTA if no surgical intervention panned It was a pleasure seeing Henok Bates. Thank you for this consult. Entered by: Yulisa Andres MD Jun 28, 2017 17:32
[2017-06-28] MEDS: FAT EMULSION 20% INJ 250 ML (@10 mls/hr) IV SCH (20:18)
[2017-06-28] MEDS: CLINIMIX E 4.25/5 2000 mL- >42 mls/hr IV SCH ×3 (20:18)
[2017-06-29] VITALS (8 sets, daily range): BP systolic 128–164; BP diastolic 66–81; PULSE 57–66; RESP 16–22; TEMP 97.5–98.4; O2SAT 93–97
[2017-06-29] MEDS: SODIUM CHLOR 0.9% 1000 ML INJ 1,000 ML IV SCH ×3 (01:38→13:36)
[2017-06-29] MEDS: INSULIN ASPART SUPPLEMENTAL SCALE SQ SCH ×4 (08:00→22:12)
[2017-06-29] MEDS: LIPASE/PROTEASE/AMYLASE (12,000/38,000/60,000) CAP PO SCH ×2 (08:00→12:00)
[2017-06-29] MEDS: AMIODARONE 200 MG TAB PO SCH (09:00)
[2017-06-29] MEDS: SODIUM CHLORIDE 0.9% FLUSH 10 ML FLUSH IV FLUSH SCH ×3 (09:00→20:55)
[2017-06-29] MEDS: HEPARIN SODIUM - SQ 10,000 UNITS/ML VIAL SQ SCH ×2 (09:00→20:55)
[2017-06-29] MEDS: METOPROLOL TARTRATE 25 MG TAB PO SCH ×2 (09:01→20:54)
[2017-06-29] MEDS: ASPIRIN 81 MG CHEW TAB CHEW SCH (09:01)
[2017-06-29] MEDS: amLODIPine BESYLATE 5 MG TAB PO SCH (09:01)
[2017-06-29] MEDS: LISINOPRIL 20 MG TAB PO SCH (09:01)
[2017-06-29] MEDS: PANTOPRAZOLE SOD 20 MG DELAYED RELEASE TAB PO SCH (09:01)
[2017-06-29] MEDS: ONDANSETRON HCL 4 MG/2 ML VIAL IVP PRN ×3 (09:02→19:54)
[2017-06-29] MEDS: MORPHINE SULFATE 4 MG/ML INJ IV PUSH PRN ×3 (09:03→19:54)
--- NOTE | 2017-06-29 14:09 | HHI.GIFU ---
Subjective Remarks States that he continues to have abdominal pain, even though he is not eating. States it is the same pain that he usually has with food intake. C/O no bm since Tuesday. (Marquita Braswell) Objective Vitals I&O Vital Signs Date Time Temp Pulse Resp B/P (MAP) Pulse Ox O2 Delivery O2 Flow Rate FiO2 06/29/17 12:00 97.9 57 20 135/70 (91) 97 06/29/17 09:00 95 Room Air 06/29/17 08:00 98.4 62 18 164/81 (108) 96 06/29/17 06:08 98.4 66 20 128/78 (95) 96 06/29/17 00:00 97.6 60 22 134/69 (90) 97 06/28/17 23:22 97.3 58 22 135/72 (93) 96 06/28/17 20:45 Room Air 06/28/17 20:30 94 21 06/28/17 19:51 62 06/28/17 18:00 97.4 54 19 132/77 (95) 98 I/O 06/28/17 06/28/17 06/28/17 06/29/17 06/29/17 06/29/17 07:00 15:00 23:00 07:00 15:00 23:00 Intake Total 960 ml 2523 ml Output Total 400 ml 1100 ml 3600 ml 550 ml Balance -400 ml -140 ml -1077 ml -550 ml Intake Oral 960 ml 420 ml IV Total 2103 ml Output Urine Total 400 ml 1100 ml 3600 ml 550 ml # Bowel Movements 1 0 Laboratory Laboratory Tests Test 06/29/17 05:50 Carcinoembryonic Antigen 3.0 Immunoglobulin G Total 1200 Imaging Last Impressions Chest X-Ray 06/28/17 0000 Signed Impressions: Service Date/Time: Wednesday, June 28, 2017 16:58 - CONCLUSION: 1. PICC line in good position. 2. New infiltrates in the left lower lung. Arron Cooper MD Abdomen/Pelvis CT 06/25/17 0000 Signed Impressions: Service Date/Time: Monday, June 26, 2017 00:05 - CONCLUSION: 1. Ill- defined low density mass of the pancreatic head of definite concern for pancreatic adenocarcinoma but interestingly without significant pancreatic or biliary ductal dilatation. The abnormality is more masslike than would be expected for focal pancreatitis. 2. Mild fatty infiltration of the liver. Nothing focal. 3. Mild bilateral hydronephrosis/hydroureter, etiology and age uncertain. No stones are seen. Benign bilateral renal cysts. 4. Radiation pellets in a nonenlarged prostate. 5. Atherosclerosis and mild aneurysmal dilatation of the abdominal aorta. 6. Sigmoid colon diverticulosis. No diverticulitis or other acute inflammatory changes. 7. Previous cholecystectomy. Henok Keene MD Physical Exam HEENT: Normocephalic; atraumatic; no jaundice. NECK: Neck is supple CHEST: CTA CARDIAC: RRR with no murmur gallop or rubs. ABDOMEN: Soft, nondistended; no hepatosplenomegaly; bowel sounds are present in all four quadrants. EXTREMITIES: No clubbing, cyanosis, or edema. SKIN: Normal; no rash; no jaundice. 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 (Marquita Braswell) Assessment and Plan Plan ASSESSMENT: - Chronic pancreatitis with pancreatic head mass, recurrent episodes of epigastric pain, vomiting and diarrhea. Patient reports history of pancreatitis 15 years ago. Reports that he quit drinking alcohol about 8 years ago after his second bout of pancreatitis. Patient has had 4 episodes of upper abdominal pain over the last several months, described as burning and associated with vomiting and diarrhea. EUS of pancreas a few weeks ago for a small lesion, biopsy was negative for cancer, showed possible pancreatitis. Medical records reviewed from prior recent hospitalization ( March 2017)-- MRCP (04/06/17)--unremarkable study. CT Abdomen (06/26/17)--1. Ill-defined low density mass of the pancreatic head of definite concern for pancreatic adenocarcinoma but interestingly without significant pancreatic or biliary ductal dilatation. The abnormality is more masslike than would be expected for focal pancreatitis.2. Mild fatty infiltration f the liver. Nothing focal. 3. Mild bilateral hydronephrosis/hydroureter, etiology and age uncertain. No stones are seen. Benign bilateral renal cysts. 4. Radiation pellets in a nonenlarged prostate. 5. Atherosclerosis and mild aneurysmal dilatation of the abdominal aorta. 6. Sigmoid colon diverticulosis. No diverticulitis or other acute inflammatory changes.7. Previous cholecystectomy. Lipase normal. S/P GS evaluation--->plan is to continue TPN as outpatient and GS is working on outpt referral to Dr. Garcia at [facility] in [place], [place] who specialists in surgical procedures in non-cancer pancreas patients. Pt reports that he is having the same pain that he has when he eats, but even while he is NPO now. IgG 4 pending. - Abdominal pain with eating, likely related to above. Pt c/o that he continues to have the same pain that he has after eating, but has it while he is npo now. - Wt. Loss, secondary to the above. - Constipation. Add Miralax PLAN: - NPO - TPN - Add Miralax - CTA - Monitor labs - Zofran prn - Can hold pancreatic enzymes while npo - Pain control - GS following - Outpt referral to [facility] for possible surgery once pancreatitis improves - Supportive care - Further recommendations based on results of above. - Patient seen and examined by Dr. Ibrahim and myself and this note is written on her behalf. (Marquita Braswell) Physician Comments igg 4 pending-only total IG resulted-as per lab IGG4 send out as discussed with radiology no indication of mesenteric ischemia on ct -dr Markie Jimenez reviewed study also pathology at [facility] to review slides for possible autoimmune pancreatis awaiting appointment with to tertiary center (Yulisa Ibrahim MD) Marquita Braswell Jun 29, 2017 14:09 Yulisa Ibrahim MD Jun 29, 2017 19:53
--- NOTE | 2017-06-29 14:41 | HHI.FPPN ---
Subjective Remarks Vital stable overnight. Daughter at bedside. Patient states he has been experiencing severe abdominal pain since the TPN was placed. States that the pain feels just like his pancreatic exacerbations. Has limited his by mouth intake but is concerned that he is still having the pains even without ingestion of fluids or food. Denies chest pain or shortness of breath. Had one bowel movement this a.m. per nursing report; however, patient states that he has not had a bowel movement in several days and has not been passing gas. No other acute complaints. (Celeste Romero MD R1) Objective Vitals Vital Signs Date Time Temp Pulse Resp B/P (MAP) Pulse Ox O2 Delivery O2 Flow Rate FiO2 06/29/17 12:00 97.9 57 20 135/70 (91) 97 06/29/17 09:00 95 Room Air 06/29/17 08:00 98.4 62 18 164/81 (108) 96 06/29/17 06:08 98.4 66 20 128/78 (95) 96 06/29/17 00:00 97.6 60 22 134/69 (90) 97 06/28/17 23:22 97.3 58 22 135/72 (93) 96 06/28/17 20:45 Room Air 06/28/17 20:30 94 21 06/28/17 19:51 62 06/28/17 18:00 97.4 54 19 132/77 (95) 98 I/O 06/28/17 06/28/17 06/28/17 06/29/17 06/29/17 06/29/17 07:00 15:00 23:00 07:00 15:00 23:00 Intake Total 960 ml 2523 ml Output Total 400 ml 1100 ml 3600 ml 550 ml Balance -400 ml -140 ml -1077 ml -550 ml Intake Oral 960 ml 420 ml IV Total 2103 ml Output Urine Total 400 ml 1100 ml 3600 ml 550 ml # Bowel Movements 1 0 (Celeste Romero MD R1) Result Diagram: 06/27/17 0650 06/27/17 0650 Objective Remarks GENERAL: NAD, lying bed NEURO: Alert. Normal speech. extraction supervisor grossly intact. Motor grossly normal. SKIN: Warm and dry. No rashes or erythema. HEAD: Normocephalic. Atraumatic. EYES: EOMI. No scleral icterus. No injection or drainage. ENT: No nasal drainage. Moist mucous membranes. NECK: Supple, trachea midline. CARDIOVASCULAR: Regular rate and rhythm without murmurs, rubs, or gallops. RESPIRATORY: Breath sounds clear to auscultation and equal bilaterally, without wheezes, rales, or rhonchi. GASTROINTESTINAL: Abdomen soft, mild tenderness to palpation in the epigastric region, nondistended, normal BS. MUSCULOSKELETAL: No lower extremity edema. Normal range of motion. (Celeste Romero MD R1) A/P Assessment and Plan 76 year old man presenting with intractable nausea and vomiting, anorexia, diarrhea, and intense abdominal pain. Admitted for symptoms consistent with chronic pancreatitis. GI and general surgery have been consulted. Discharge Planning General surgery Dr. Webb will set up referral to Dr. Garcia at [facility] in [place] for further pancreatic evaluation/ procedure. Plan to discharge patient with TPN in place. (Celeste Romero MD R1) Attending Attestation Patient seen and examined. Case reviewed and discussed with the resident team. Agree with plan of care as discussed with me and documented in the resident note. his pancreatitis may be becoming more chronic where it takes little to start a new episode of pain. he did well about 5 years ago on TPN and complete bowel rest and that is what surgery and GI are recommending until he can get in to see the pancreatic surgeon in [place] at [facility] (Lisa Marley MD) Problem List: (1) Chronic pancreatitis ICD Codes: K86.1 - Other chronic pancreatitis Status: Chronic Plan: Symptoms are mostly consistent with his chronic pancreatitis given his epigastric abdominal pain with N/V and association with meals Initial lipase on admission WNL at 253 trending to 140 - 110 but with chronic pancreatitis, the enzymes may not be elevated Pain today with ingestion of part of liquid diet last night, on clear liquids - IgG4 was ordered to rule out autoimmune pancreatitis. Total IgG level returned at 1200; upon contacting the lab, the sample was sent out for further determination of IgG4 level. Based on discussion with GI, I spoke with the pathologist familiar with his case at [facility] and he agreed to perform immunostaining of biopsy sample for IgG4. CTA of the abdomen was ordered by GI to rule out mesenteric ischemia. We'll follow-up these results tomorrow. -TPN - IVF hydration with NS at maintenance due to reduced PO intake - Zofran prn - Tylenol and Morphine prn pain - Continue pancreatic enzymes - Protonix 20 mg PO daily Medical records reviewed from a prior hospitalization from 04/01/2017 - 04/07/2017. - Echo demonstrated normal EF. - SPECT on 04/03/2017 also done showing no reversible defect. Anticoagulation was discussed with the patient given his a-fib and patient and daughter elected not to proceed with anticoagulation. - MRCP performed on 04/06/2017 was an unremarkable study; showed no significant ductal dilation, no evidence of choledocholithiasis, cholecystectomy changes were noted. -biopsy did not show cancer (2) Paroxysmal atrial fibrillation ICD Codes: I48.0 - Paroxysmal atrial fibrillation Status: Chronic Plan: Currently sinus rhythm Continue home amiodarone 200 mg po daily Metroprolol 25 mg Q12H CHADSVASc score of 4 HASBLED of 2 May discuss anticoagulation with patient and daughter again Per previous medical records and hospitalization, patient and daughter elected not to proceed with anticoagulation per evaluation of monitor heart rate sinus no lower than 60 will D/C heart monitor (3) Hypertension ICD Codes: I10 - Essential (primary) hypertension Status: Chronic Plan: Metoprolol 25 mg po q12h Monitor vitals q4h Amlodipine 2.5 mg po daily started per cards recommendations Continue lisinopril 40 mg po daily Clonidine 0.1 mg PRN for SBP >180 (4) Diabetes mellitus ICD Codes: E11.9 - Type 2 diabetes mellitus without complications Status: Chronic Plan: Glucose levels have been >150 in the AM and throughout the day. Likely elevated secondary to initiation of TPN (06/28). On medium-dose NovoLog SSI. Accuchecks ACHS Add basal if needed (5) Nutrition, metabolism, and development symptoms ICD Codes: R63.8 - Other symptoms and signs concerning food and fluid intake Status: Acute Plan: Fluids: NS at maintenance Electrolytes: WNL, continue to monitor Nutrition: TPN (06/28) DVT ppx: Heparin 5000 units sq q12h (Celeste Romero MD R1) Problem Qualifiers (1) Chronic pancreatitis: Qualified Codes: K86.0 - Alcohol-induced chronic pancreatitis (2) Hypertension: Qualified Codes: I10 - Essential (primary) hypertension (3) Diabetes mellitus: Qualified Codes: E10.8 - Type 1 diabetes mellitus with unspecified complications Celeste Romero MD R1 Jun 29, 2017 14:41 Lisa Marley MD Jun 30, 2017 13:48
[2017-06-29] MEDS ORDERED: MAGNESIUM HYDROXIDE SUSP 30 ML CUP PO PRN (14:45)
[2017-06-29] MEDS ORDERED: BISACODYL 10 MG SUPP RECTAL PRN (14:45)
[2017-06-29] MEDS ORDERED: SENNOSIDES 8.6 MG TAB PO PRN (14:45)
[2017-06-29] MEDS ORDERED: LACTULOSE SYRUP 20 GM/30 ML CUP PO PRN (14:45)
--- NOTE | 2017-06-29 15:35 | HHI.PR ---
Subjective Subjective Notes Resting in bed Daughter at bedside Objective Vitals/I&O Vital Signs Date Time Temp Pulse Resp B/P (MAP) Pulse Ox O2 Delivery O2 Flow Rate FiO2 06/29/17 12:00 97.9 57 20 135/70 (91) 97 06/29/17 09:00 Room Air 06/28/17 20:30 21 06/28/17 09:38 2.00 Labs Laboratory Tests Test 06/29/17 05:50 Carcinoembryonic Antigen 3.0 Immunoglobulin G Total 1200 Cardiovascular: Regular Lungs: Clear Abdomen: Non-distended, Non-tender Extremities: No edema A/P Assessment and Plan 76 year old male with multiple recent episodes of chronic pancreatitis -Continue PICC/TPN -Will need to recover from this episode of pancreatitis prior to any surgical intervention -Our office is working on referral to [facility] for surgical evaluation by Dr. Garcia -No acute surgical issues at this time Attending Statement The exam, history, and the medical decision-making described in the above note were completed with the assistance of the mid-level provider. I reviewed and agree with the findings presented. I attest that I had a [id number] encounter with the patient on the same day, and personally performed and documented my assessment and findings in the medical record. Patient feels better, still not tolerating PO, on TPN, ok for Dc home once stable, patient will fu with chronic pancreatitis specialist at , follow up with me Ava Candelario Jun 29, 2017 15:35 Inocente Webb MD Jul 01, 2017 10:43
--- NOTE | 2017-06-29 15:35 | HHI.PR ---
Subjective Subjective Notes Resting in bed Daughter at bedside Objective Vitals/I&O Vital Signs Date Time Temp Pulse Resp B/P (MAP) Pulse Ox O2 Delivery O2 Flow Rate FiO2 06/29/17 12:00 97.9 57 20 135/70 (91) 97 06/29/17 09:00 Room Air 06/28/17 20:30 21 06/28/17 09:38 2.00 Labs Laboratory Tests Test 06/29/17 05:50 Carcinoembryonic Antigen 3.0 Immunoglobulin G Total 1200 Cardiovascular: Regular Lungs: Clear Abdomen: Non-distended, Non-tender Extremities: No edema A/P Assessment and Plan 76 year old male with multiple recent episodes of chronic pancreatitis -Continue PICC/TPN -Will need to recover from this episode of pancreatitis prior to any surgical intervention -Our office is working on referral to [facility] for surgical evaluation by Dr. Garcia -No acute surgical issues at this time Attending Statement The exam, history, and the medical decision-making described in the above note were completed with the assistance of the mid-level provider. I reviewed and agree with the findings presented. I attest that I had a [id number] encounter with the patient on the same day, and personally performed and documented my assessment and findings in the medical record. Patient feels better, still not tolerating PO, on TPN, ok for Dc home once stable, patient will fu with chronic pancreatitis specialist at , follow up with me Ava Candelario Jun 29, 2017 15:35 Inocente Webb MD Jul 01, 2017 10:43
[2017-06-29] MEDS: CLINIMIX E 4.25/5 2000 mL- >42 mls/hr IV SCH ×3 (20:51)
[2017-06-29] MEDS: FAT EMULSION 20% INJ 250 ML (@10 mls/hr) IV SCH (20:51)
[2017-06-29] MEDS: DOCUSATE SODIUM 50 MG/SENNA 8.6 MG TAB PO SCH (20:54)
[2017-06-30] VITALS (10 sets, daily range): BP systolic 130–178; BP diastolic 59–85; PULSE 58–65; RESP 16–20; TEMP 97.5–98.8; O2SAT 93–98
[2017-06-30] MEDS: SODIUM CHLOR 0.9% 1000 ML INJ 1,000 ML IV SCH ×4 (00:58→18:39)
[2017-06-30] MEDS: ONDANSETRON HCL 4 MG/2 ML VIAL IVP PRN (06:39)
[2017-06-30] MEDS ORDERED: POLYETHYLENE GLYCOL 17 GM PKG PO SCH (09:00)
[2017-06-30 09:16] LABS: AUTOMATED NEUTROPHIL # 5.4 TH/MM3 (1.8-7.7); BASOPHIL % 0.5 % (0.0-2.0); EOSINOPHIL # 0.2 TH/MM3 (0-0.4); EOSINOPHIL % 2.7 % (0.0-4.0); HEMATOCRIT 35.4 % (39.0-51.0); HEMOGLOBIN 12.2 GM/DL (13.0-17.0); LYMPHOCYTE # 1.2 TH/MM3 (1.0-4.8); MEAN CELL VOLUME 88.6 FL (80.0-100.0); MEAN CORPUSCULAR HEMOGLOBIN 30.5 PG (27.0-34.0); MEAN CORPUSCULAR HGB CONC 34.4 % (32.0-36.0); MEAN PLATELET VOLUME 8.5 FL (7.0-11.0); MONO % 6.5 % (0.0-8.0); MONOCYTE # 0.5 TH/MM3 (0-0.9); NEUT % 73.3 % (16.0-70.0); PLATELET COUNT 192 TH/MM3 (150-450); WHITE BLOOD COUNT 7.3 TH/MM3 (4.0-11.0)
[2017-06-30] MEDS: METOPROLOL TARTRATE 25 MG TAB PO SCH ×2 (09:43→21:14)
[2017-06-30] MEDS: LISINOPRIL 20 MG TAB PO SCH (09:43)
[2017-06-30] MEDS: ASPIRIN 81 MG CHEW TAB CHEW SCH (09:43)
[2017-06-30] MEDS: amLODIPine BESYLATE 5 MG TAB PO SCH (09:43)
[2017-06-30] MEDS: PANTOPRAZOLE SOD 20 MG DELAYED RELEASE TAB PO SCH (09:43)
[2017-06-30] MEDS: AMIODARONE 200 MG TAB PO SCH (09:43)
[2017-06-30] MEDS: DOCUSATE SODIUM 50 MG/SENNA 8.6 MG TAB PO SCH ×2 (09:43→21:00)
[2017-06-30] MEDS: HEPARIN SODIUM - SQ 10,000 UNITS/ML VIAL SQ SCH ×2 (09:46→21:14)
[2017-06-30] MEDS: SODIUM CHLORIDE 0.9% FLUSH 10 ML FLUSH IV FLUSH SCH ×3 (09:47→21:13)
[2017-06-30] MEDS: INSULIN ASPART SUPPLEMENTAL SCALE SQ SCH ×4 (10:04→22:07)
[2017-06-30 11:23] LABS: BICARBONATE 24.4 MEQ/L (21.0-32.0); CREATININE 0.87 MG/DL (0.60-1.30)
--- NOTE | 2017-06-30 11:49 | HHI.FPPN ---
Subjective Remarks Mr Bates has no pain today. He has been NPO except for Miralax. He is ready to go home when things are set up including PPN, HHC and follow ups plus po meds for nausea and pain. Spoke to him and his daughter today. The autoimmune biopsy may be read by today. He has no other complaints today. Objective Vitals Vital Signs Date Time Temp Pulse Resp B/P (MAP) Pulse Ox O2 Delivery O2 Flow Rate FiO2 06/30/17 08:00 97.9 62 20 178/79 (112) 96 06/30/17 07:00 97.9 62 18 154/71 (98) 96 06/30/17 04:00 98.7 60 16 140/65 (90) 96 06/30/17 00:00 98.8 60 16 130/59 (82) 96 Manual Cuff/Auscultation 06/29/17 20:29 62 06/29/17 20:04 97.7 63 18 164/79 (107) 93 06/29/17 20:00 Room Air 06/29/17 17:24 97 Nasal Cannula 2.00 06/29/17 16:00 97.5 58 16 140/73 (95) 97 06/29/17 16:00 97.8 59 20 139/66 (90) 97 06/29/17 12:00 97.9 57 20 135/70 (91) 97 I/O 06/29/17 06/29/17 06/29/17 06/30/17 06/30/17 06/30/17 07:00 15:00 23:00 07:00 15:00 23:00 Intake Total 2523 ml 690 ml 5044 ml Output Total 3600 ml 550 ml 900 ml Balance -1077 ml -550 ml 690 ml 4144 ml Intake Oral 420 ml 240 ml IV Total 2103 ml 690 ml 4075 ml TPN/PPN 647 ml Lipid 82 ml Output Urine Total 3600 ml 550 ml 900 ml # Bowel Movements 0 Result Diagram: 06/30/1761406/30/17614 Objective Remarks GENERAL: NAD, lying bed NEURO: Alert. Normal speech. 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 Motor grossly normal. SKIN: Warm and dry. No rashes or erythema. HEAD: Normocephalic. Atraumatic. EYES: EOMI. No scleral icterus. No injection or drainage. ENT: No nasal drainage. Moist mucous membranes. NECK: Supple, trachea midline. CARDIOVASCULAR: Regular rate and rhythm without murmurs, rubs, or gallops. RESPIRATORY: Breath sounds clear to auscultation and equal bilaterally, without wheezes, rales, or rhonchi. GASTROINTESTINAL: Abdomen soft, mild tenderness to palpation in the epigastric region, nondistended, normal BS. MUSCULOSKELETAL: No lower extremity edema. Normal range of motion. Vascular Central Line Catheter: Yes Line: PICC Side: Right Location: Antecubital Reason for Continuation PPN vs TPN needed prolonged time A/P Assessment and Plan 76 year old man presenting with intractable nausea and vomiting, anorexia, diarrhea, and intense abdominal pain. Admitted for symptoms consistent with chronic pancreatitis. GI and general surgery have been consulted. Discharge Planning General surgery Dr. Webb will set up referral to Dr. Garcia at [facility] in [place] for further pancreatic evaluation/ procedure. Plan to discharge patient with TPN in place. Problem List: (1) Chronic pancreatitis ICD Codes: K86.1 - Other chronic pancreatitis Status: Chronic Plan: Symptoms are mostly consistent with his chronic pancreatitis given his epigastric abdominal pain with N/V and association with meals Initial lipase on admission WNL at 253 trending to 140 - 110 but with chronic pancreatitis, the enzymes may not be elevated Pain today with ingestion of part of liquid diet last night, on clear liquids - IgG4 was ordered to rule out autoimmune pancreatitis. Total IgG level returned at 1200; upon contacting the lab, the sample was sent out for further determination of IgG4 level. Based on discussion with GI, I spoke with the pathologist familiar with his case at [facility] and he agreed to perform immunostaining of biopsy sample for IgG4. CTA of the abdomen was ordered by GI to rule out mesenteric ischemia. We'll follow-up these results tomorrow. -TPN - IVF hydration with NS at maintenance due to reduced PO intake - Zofran prn - Tylenol and Morphine prn pain - Continue pancreatic enzymes - Protonix 20 mg PO daily Medical records reviewed from a prior hospitalization from 04/01/2017 - 04/07/2017. - Echo demonstrated normal EF. - SPECT on 04/03/2017 also done showing no reversible defect. Anticoagulation was discussed with the patient given his a-fib and patient and daughter elected not to proceed with anticoagulation. - MRCP performed on 04/06/2017 was an unremarkable study; showed no significant ductal dilation, no evidence of choledocholithiasis, cholecystectomy changes were noted. -biopsy did not show cancer -biopsy being checked for autoimmune (2) Paroxysmal atrial fibrillation ICD Codes: I48.0 - Paroxysmal atrial fibrillation Status: Chronic Plan: Currently sinus rhythm Continue home amiodarone 200 mg po daily Metroprolol 25 mg Q12H CHADSVASc score of 4 HASBLED of 2 May discuss anticoagulation with patient and daughter again Per previous medical records and hospitalization, patient and daughter elected not to proceed with anticoagulation per evaluation of monitor heart rate sinus no lower than 60 will D/C heart monitor (3) Hypertension ICD Codes: I10 - Essential (primary) hypertension Status: Chronic Plan: Metoprolol 25 mg po q12h Monitor vitals q4h Amlodipine 2.5 mg po daily started per cards recommendations Continue lisinopril 40 mg po daily Clonidine 0.1 mg PRN for SBP >180 (4) Diabetes mellitus ICD Codes: E11.9 - Type 2 diabetes mellitus without complications Status: Chronic Plan: Glucose levels have been >150 in the AM and throughout the day. Likely elevated secondary to initiation of TPN (06/28). On medium-dose NovoLog SSI. Accuchecks ACHS Add basal if needed, will likely need this at home (5) Nutrition, metabolism, and development symptoms ICD Codes: R63.8 - Other symptoms and signs concerning food and fluid intake Status: Acute Plan: Fluids: NS at maintenance Electrolytes: WNL, continue to monitor Nutrition: TPN (06/28). will ask dietary to advise on home TPN DVT ppx: Heparin 5000 units sq q12h Problem Qualifiers (1) Chronic pancreatitis: Qualified Codes: K86.0 - Alcohol-induced chronic pancreatitis (2) Hypertension: Qualified Codes: I10 - Essential (primary) hypertension (3) Diabetes mellitus: Qualified Codes: E10.8 - Type 1 diabetes mellitus with unspecified complications Lias Marley MD Jun 30, 2017 11:49
--- NOTE | 2017-06-30 14:50 | HHI.FF ---
Face to Face Verification Diagnosis: (1) Chronic pancreatitis Home Health Nursing Order: IV medication administration (Administration and monitoring of total parenteral nutrition) I have seen patient Henok Bates on 06/30/17. My clinical findings support the need for the requested home health care services because: Injectable med education/admin I certify that my clinical findings support that this patient is homebound because: Unsteady gait/balance Servando Pérez MD R2 Jun 30, 2017 14:50
[2017-06-30] MEDS ORDERED: ASPI81CH25 CHEW (14:57)
[2017-06-30] MEDS ORDERED: METO25TA3 PO (14:57)
[2017-06-30] MEDS ORDERED: AMLO5 PO (14:57)
--- NOTE | 2017-06-30 14:58 | HHI.DCPOC ---
Discharge Care Plan Diagnosis: (1) Chronic pancreatitis (2) Paroxysmal atrial fibrillation (3) Diabetes mellitus Goals to Promote Your Health * To prevent worsening of your condition and complications, follow up with her primary care physician, flight agent, and general surgeon following hospital discharge. Directions to Meet Your Goals Take your medications as prescribed Follow your dietary instruction Follow activity as directed Keep your appointments as scheduled Take your immunizations and boosters as scheduled If your symptoms worsen call your PCP, if no PCP go to Urgent Care Center or Emergency Room Smoking is Dangerous to Your Health. Avoid second hand smoke Call the 24-hour hour crisis hotline for domestic abuse at Servando Pérez MD R2 Jun 30, 2017 14:58
--- NOTE | 2017-06-30 14:58 | HHI.DCPOC ---
Discharge Care Plan Diagnosis: (1) Chronic pancreatitis (2) Paroxysmal atrial fibrillation (3) Diabetes mellitus Goals to Promote Your Health * To prevent worsening of your condition and complications, follow up with her primary care physician, harness inspector, and general surgeon following hospital discharge. Directions to Meet Your Goals Take your medications as prescribed Follow your dietary instruction Follow activity as directed Keep your appointments as scheduled Take your immunizations and boosters as scheduled If your symptoms worsen call your PCP, if no PCP go to Urgent Care Center or Emergency Room Smoking is Dangerous to Your Health. Avoid second hand smoke Call the 24-hour hour crisis hotline for domestic abuse at Servando Pérez MD R2 Jun 30, 2017 14:58
--- NOTE | 2017-06-30 14:58 | HHI.DCPOC ---
Discharge Care Plan Diagnosis: (1) Chronic pancreatitis (2) Paroxysmal atrial fibrillation (3) Diabetes mellitus Goals to Promote Your Health * To prevent worsening of your condition and complications, follow up with her primary care physician, supervisor chemical, and general surgeon following hospital discharge. Directions to Meet Your Goals Take your medications as prescribed Follow your dietary instruction Follow activity as directed Keep your appointments as scheduled Take your immunizations and boosters as scheduled If your symptoms worsen call your PCP, if no PCP go to Urgent Care Center or Emergency Room Smoking is Dangerous to Your Health. Avoid second hand smoke Call the 24-hour hour crisis hotline for domestic abuse at Servando Pérez MD R2 Jun 30, 2017 14:58
--- NOTE | 2017-06-30 15:17 | HHI.PR ---
Subjective Subjective Notes Ambulating in room Daughter at bedside Objective Vitals/I&O Vital Signs Date Time Temp Pulse Resp B/P (MAP) Pulse Ox O2 Delivery O2 Flow Rate FiO2 06/30/17 12:00 98.1 61 20 162/74 (103) 93 06/30/17 09:43 Nasal Cannula 2.00 06/28/17 20:30 21 Labs Laboratory Tests Test 06/29/17 15:51 06/30/17 06:15 White Blood Count 7.3 Red Blood Count 4.00 Hemoglobin 12.2 Hematocrit 35.4 Mean Corpuscular Volume 88.6 Mean Corpuscular Hemoglobin 30.5 Mean Corpuscular Hemoglobin Concent 34.4 Red Cell Distribution Width 13.0 Platelet Count 192 Mean Platelet Volume 8.5 Neutrophils (%) (Auto) 73.3 Lymphocytes (%) (Auto) 17.0 Monocytes (%) (Auto) 6.5 Eosinophils (%) (Auto) 2.7 Basophils (%) (Auto) 0.5 Neutrophils # (Auto) 5.4 Lymphocytes # (Auto) 1.2 Monocytes # (Auto) 0.5 Eosinophils # (Auto) 0.2 Basophils # (Auto) 0.0 CBC Comment DIFF FINAL Differential Comment Blood Urea Nitrogen 12 Creatinine 0.87 Random Glucose 242 Calcium Level 8.0 Sodium Level 137 Potassium Level 3.6 Chloride Level 102 Carbon Dioxide Level 24.4 Anion Gap 11 Estimat Glomerular Filtration Rate 86 Cardiovascular: Regular Lungs: Clear Abdomen: Non-distended, Non-tender Extremities: No edema Narrative Exam PICC in place A/P Assessment and Plan 76 year old male with multiple recent episodes of chronic pancreatitis -Continue PICC/TPN -Will need to recover from this episode of pancreatitis prior to any surgical intervention -Our office is working on referral to [facility] for surgical evaluation by Dr. Garcia -No acute surgical issues at this time -CM consult to set up home TPN Attending Statement The exam, history, and the medical decision-making described in the above note were completed with the assistance of the mid-level provider. I reviewed and agree with the findings presented. I attest that I had a [id number] encounter with the patient on the same day, and personally performed and documented my assessment and findings in the medical record. acute on chronic pancreatitis overall better, less pain, on TPN ok to DC home and follow up with specialist at [facility] with me Ava Candelario Jun 30, 2017 15:17 Inocente Webb MD Jul 01, 2017 10:49
--- NOTE | 2017-06-30 15:37 | HHI.GIFU ---
Subjective Remarks Resting in bed. States he is feeling better today. He is no longer having the abdominal pain that he experienced yesterday. States he may be going home tomorrow. No BM. (Marquita Braswell) Objective Vitals I&O Vital Signs Date Time Temp Pulse Resp B/P (MAP) Pulse Ox O2 Delivery O2 Flow Rate FiO2 06/30/17 12:00 98.1 61 20 162/74 (103) 93 06/30/17 09:43 Nasal Cannula 2.00 06/30/17 08:00 97.9 62 20 178/79 (112) 96 06/30/17 07:00 97.9 62 18 154/71 (98) 96 06/30/17 04:00 98.7 60 16 140/65 (90) 96 06/30/17 00:00 98.8 60 16 130/59 (82) 96 Manual Cuff/Auscultation 06/29/17 20:29 62 06/29/17 20:04 97.7 63 18 164/79 (107) 93 06/29/17 20:00 Room Air 06/29/17 17:24 97 Nasal Cannula 2.00 06/29/17 16:00 97.5 58 16 140/73 (95) 97 06/29/17 16:00 97.8 59 20 139/66 (90) 97 I/O 06/29/17 06/29/17 06/29/17 06/30/17 06/30/17 06/30/17 07:00 15:00 23:00 07:00 15:00 23:00 Intake Total 2523 ml 690 ml 5044 ml Output Total 3600 ml 550 ml 900 ml Balance -1077 ml -550 ml 690 ml 4144 ml Intake Oral 420 ml 240 ml IV Total 2103 ml 690 ml 4075 ml TPN/PPN 647 ml Lipid 82 ml Output Urine Total 3600 ml 550 ml 900 ml # Bowel Movements 0 Laboratory Laboratory Tests Test 06/29/17 15:51 06/30/17 06:15 White Blood Count 7.3 Red Blood Count 4.00 Hemoglobin 12.2 Hematocrit 35.4 Mean Corpuscular Volume 88.6 Mean Corpuscular Hemoglobin 30.5 Mean Corpuscular Hemoglobin Concent 34.4 Red Cell Distribution Width 13.0 Platelet Count 192 Mean Platelet Volume 8.5 Neutrophils (%) (Auto) 73.3 Lymphocytes (%) (Auto) 17.0 Monocytes (%) (Auto) 6.5 Eosinophils (%) (Auto) 2.7 Basophils (%) (Auto) 0.5 Neutrophils # (Auto) 5.4 Lymphocytes # (Auto) 1.2 Monocytes # (Auto) 0.5 Eosinophils # (Auto) 0.2 Basophils # (Auto) 0.0 CBC Comment DIFF FINAL Differential Comment Blood Urea Nitrogen 12 Creatinine 0.87 Random Glucose 242 Calcium Level 8.0 Sodium Level 137 Potassium Level 3.6 Chloride Level 102 Carbon Dioxide Level 24.4 Anion Gap 11 Estimat Glomerular Filtration Rate 86 Imaging Last Impressions Chest X-Ray 06/28/17 0000 Signed Impressions: Service Date/Time: Wednesday, June 28, 2017 16:58 - CONCLUSION: 1. PICC line in good position. 2. New infiltrates in the left lower lung. Arron Cooper MD Abdomen/Pelvis CT 06/25/17 0000 Signed Impressions: Service Date/Time: Monday, June 26, 2017 00:05 - CONCLUSION: 1. Ill- defined low density mass of the pancreatic head of definite concern for pancreatic adenocarcinoma but interestingly without significant pancreatic or biliary ductal dilatation. The abnormality is more masslike than would be expected for focal pancreatitis. 2. Mild fatty infiltration of the liver. Nothing focal. 3. Mild bilateral hydronephrosis/hydroureter, etiology and age uncertain. No stones are seen. Benign bilateral renal cysts. 4. Radiation pellets in a nonenlarged prostate. 5. Atherosclerosis and mild aneurysmal dilatation of the abdominal aorta. 6. Sigmoid colon diverticulosis. No diverticulitis or other acute inflammatory changes. 7. Previous cholecystectomy. Henok Keene MD Physical Exam HEENT: Normocephalic; atraumatic; no jaundice. NECK: Neck is supple CHEST: CTA CARDIAC: RRR with no murmur gallop or rubs. ABDOMEN: Soft, nondistended; no hepatosplenomegaly; bowel sounds are present in all four quadrants. EXTREMITIES: No clubbing, cyanosis, or edema. SKIN: Normal; no rash; no jaundice. CASHIER GENERAL: No focal deficits; alert and oriented times three. (Marquita BraswellP) Assessment and Plan Plan ASSESSMENT: - Chronic pancreatitis with pancreatic head mass, recurrent episodes of epigastric pain, vomiting and diarrhea. Patient reports history of pancreatitis 15 years ago. Reports that he quit drinking alcohol about 8 years ago after his second bout of pancreatitis. Patient has had 4 episodes of upper abdominal pain over the last several months, described as burning and associated with vomiting and diarrhea. EUS of pancreas a few weeks ago for a small lesion, biopsy was negative for cancer, showed possible pancreatitis. Medical records reviewed from prior recent hospitalization ( March 2017)-- MRCP (04/06/17)--unremarkable study. CT Abdomen (06/26/17)--1. Ill-defined low density mass of the pancreatic head of definite concern for pancreatic adenocarcinoma but interestingly without significant pancreatic or biliary ductal dilatation. The abnormality is more masslike than would be expected for focal pancreatitis.2. Mild fatty infiltration f the liver. Nothing focal. 3. Mild bilateral hydronephrosis/hydroureter, etiology and age uncertain. No stones are seen. Benign bilateral renal cysts. 4. Radiation pellets in a nonenlarged prostate. 5. Atherosclerosis and mild aneurysmal dilatation of the abdominal aorta. 6. Sigmoid colon diverticulosis. No diverticulitis or other acute inflammatory changes.7. Previous cholecystectomy. Lipase normal. S/P GS evaluation--->plan is to continue TPN as outpatient and GS is working on outpt referral to Dr. Garcia at [facility] in [place], [place] who specialists in surgical procedures in non-cancer pancreas patients. IgG 4 pending. Getting TPN. Pt reports that he is feeling much better and no longer having the abdominal pain he was having yesterday. Possible d/c tomorrow. - Abdominal pain with eating, likely related to above. Spoke to Dr. Jimenez, reviewed contrasted CT scan- states SMA patent. - Wt. Loss, secondary to the above. - Constipation. Cont. Miralax PLAN: - NPO - TPN - Miralax - Monitor labs - Zofran prn - Can hold pancreatic enzymes while npo - Pain control - GS following - Outpt referral to [facility] for possible surgery once pancreatitis improves - Supportive care - Further recommendations based on results of above. - Patient seen and examined by Dr. Hernandez and myself and this note is written on his behalf. (Marquita Braswell) Physician Comments Seen and examined, plan as above, will follow up with you for further recommendations. (Asad Hernandez MD) Marquita Braswell [facility] Jun 30, 2017 15:37 Asad Hernandez MD Jun 30, 2017 16:24
[2017-06-30] MEDS: POLYETHYLENE GLYCOL 17 GM PKG PO SCH ×2 (18:00→21:00)
[2017-06-30] MEDS: FAT EMULSION 20% INJ 250 ML (@10 mls/hr) IV SCH (20:50)
[2017-06-30] MEDS: CLINIMIX E 4.25/5 2000 mL- >42 mls/hr IV SCH ×3 (20:51)
[2017-06-30] MEDS: INSULIN DETEMIR 100 UNITS/ML VIAL SQ SCH (22:07)
[2017-07-01] MEDS: SODIUM CHLOR 0.9% 1000 ML INJ 1,000 ML IV SCH ×2 (03:41→09:14)
[2017-07-01 03:45] VITALS: BP 152/67; PULSE 67; RESP 16; TEMP 97.5; O2SAT 96
[2017-07-01 07:00] VITALS: BP 157/76; PULSE 66; RESP 16; TEMP 97.8; O2SAT 95
[2017-07-01 07:54] VITALS: PULSE 66
[2017-07-01 08:19] LABS: HEMATOCRIT 36.2 % (39.0-51.0); HEMOGLOBIN 12.5 GM/DL (13.0-17.0); MEAN CELL VOLUME 88.6 FL (80.0-100.0); MEAN CORPUSCULAR HEMOGLOBIN 30.6 PG (27.0-34.0); MEAN CORPUSCULAR HGB CONC 34.6 % (32.0-36.0); MEAN PLATELET VOLUME 8.6 FL (7.0-11.0); PLATELET COUNT 192 TH/MM3 (150-450); RED BLOOD COUNT 4.09 MIL/MM3 (4.50-5.90); RED CELL DISTRIBUTION WIDTH 13.2 % (11.6-17.2); WHITE BLOOD COUNT 6.9 TH/MM3 (4.0-11.0)
[2017-07-01 08:36] VITALS: BP 170/80; PULSE 62; RESP 18; TEMP 97.9; O2SAT 95
[2017-07-01 08:39] LABS: BICARBONATE 27.1 MEQ/L (21.0-32.0); CALCIUM 8.6 MG/DL (8.5-10.1); CREATININE 0.88 MG/DL (0.60-1.30)
[2017-07-01] MEDS: DOCUSATE SODIUM 50 MG/SENNA 8.6 MG TAB PO SCH (09:00)
[2017-07-01] MEDS: POLYETHYLENE GLYCOL 17 GM PKG PO SCH (09:00)
[2017-07-01] MEDS: LISINOPRIL 20 MG TAB PO SCH (09:16)
[2017-07-01] MEDS: METOPROLOL TARTRATE 25 MG TAB PO SCH (09:17)
[2017-07-01] MEDS: SODIUM CHLORIDE 0.9% FLUSH 10 ML FLUSH IV FLUSH SCH ×2 (09:17)
[2017-07-01] MEDS: amLODIPine BESYLATE 5 MG TAB PO SCH (09:17)
[2017-07-01] MEDS: AMIODARONE 200 MG TAB PO SCH (09:17)
[2017-07-01] MEDS: PANTOPRAZOLE SOD 20 MG DELAYED RELEASE TAB PO SCH (09:17)
[2017-07-01] MEDS: ASPIRIN 81 MG CHEW TAB CHEW SCH (09:17)
[2017-07-01] MEDS: HEPARIN SODIUM - SQ 10,000 UNITS/ML VIAL SQ SCH (09:19)
[2017-07-01] MEDS: INSULIN ASPART SUPPLEMENTAL SCALE SQ SCH ×2 (09:29→12:52)
[2017-07-01] MEDS: INSULIN DETEMIR 100 UNITS/ML VIAL SQ SCH (09:29)
--- NOTE | 2017-07-01 09:46 | HHI.PR ---
Addendum to Inpatient Note Addendum Reason: Additional Documentation Additional Information He needs TPN for one month and bowel rest. He needs his pancreas to calm down prior to seeing the pancreatic surgeon at [facility]. Lisa Marley MD Jul 01, 2017 09:46
--- NOTE | 2017-07-01 09:46 | HHI.PR ---
Addendum to Inpatient Note Addendum Reason: Additional Documentation Additional Information He needs TPN for one month and bowel rest. He needs his pancreas to calm down prior to seeing the pancreatic surgeon at [facility]. Lisa Marley MD Jul 01, 2017 09:46
--- NOTE | 2017-07-01 09:46 | HHI.PR ---
Addendum to Inpatient Note Addendum Reason: Additional Documentation Additional Information He needs TPN for one month and bowel rest. He needs his pancreas to calm down prior to seeing the pancreatic surgeon at [facility]. Lisa Marley MD Jul 01, 2017 09:46
[2017-07-01] MEDS ORDERED: ONDA4TAB7 SL (09:47)
[2017-07-01] MEDS ORDERED: HYDR-3583 PO (09:47)
[2017-07-01] MEDS ORDERED: LANTUS2P SQ (09:52)
[2017-07-01 11:00] VITALS: BP 143/72; PULSE 60; RESP 14; TEMP 98.2; O2SAT 96
--- NOTE | 2017-07-01 15:21 | HHI.FPPN ---
Subjective Remarks Mr Bates and his daughter very much want to go home today. He is pain free and NPO. He has done well on his PPN and now will be on TPN with his PICC line. Will follow the recs of dietary. Hopefully this will only be a few weeks until he can get in to see the Pancreatic surgeon in [place] and hopefully have some definitive treatment. Otherwise he had no complaints and all his questions were answered Objective Vitals Vital Signs Date Time Temp Pulse Resp B/P (MAP) Pulse Ox O2 Delivery O2 Flow Rate FiO2 07/01/17 12:00 96 Room Air 07/01/17 11:00 98.2 60 14 143/72 (95) 96 07/01/17 08:36 97.9 62 18 170/80 (110) 95 07/01/17 08:00 95 Room Air 07/01/17 07:54 66 07/01/17 07:00 97.8 66 16 157/76 (103) 95 07/01/17 03:45 97.5 67 16 152/67 (95) 96 06/30/17 23:15 97.5 58 16 140/67 (91) 98 06/30/17 22:29 98 06/30/17 19:42 97.7 65 16 176/85 (115) 97 06/30/17 16:00 98.4 60 20 157/74 (101) 96 I/O 06/30/17 06/30/17 06/30/17 07/01/17 07/01/17 07/01/17 07:00 15:00 23:00 07:00 15:00 23:00 Intake Total 5044 ml 1000 ml 2700 ml 1719 ml 2601 ml Output Total 900 ml 1700 ml 3825 ml 550 ml Balance 4144 ml 1000 ml 1000 ml -2106 ml 2051 ml Intake Oral 240 ml 480 ml 720 ml IV Total 4075 ml 1000 ml 2220 ml 999 ml 2601 ml TPN/PPN 647 ml Lipid 82 ml Output Urine Total 900 ml 1700 ml 3825 ml 550 ml # Bowel Movements 4 2 Result Diagram: 07/01/1772007/01/17720 Objective Remarks GENERAL: NAD, lying bed NEURO: Alert. Normal speech. coordinate measuring machine technician grossly intact. Motor grossly normal. SKIN: Warm and dry. No rashes or erythema. HEAD: Normocephalic. Atraumatic. EYES: EOMI. No scleral icterus. No injection or drainage. ENT: No nasal drainage. Moist mucous membranes. NECK: Supple, trachea midline. CARDIOVASCULAR: Regular rate and rhythm without murmurs, rubs, or gallops. RESPIRATORY: Breath sounds clear to auscultation and equal bilaterally, without wheezes, rales, or rhonchi. GASTROINTESTINAL: Abdomen soft, mild tenderness to palpation in the epigastric region, nondistended, normal BS. MUSCULOSKELETAL: No lower extremity edema. Normal range of motion. Urinary Catheter: No Vascular Central Line Catheter: Yes Line: PICC Side: Right Location: Antecubital Reason for Continuation TPN A/P Assessment and Plan 76 year old man presenting with intractable nausea and vomiting, anorexia, diarrhea, and intense abdominal pain. Admitted for symptoms consistent with chronic pancreatitis. GI and general surgery have been consulted. Discharge Planning General surgery Dr. Webb will set up referral to Dr. Garcia at [facility] in [place] for further pancreatic evaluation/ procedure. Plan to discharge patient with TPN in place. going home today see discharge note for further details. He wishes to follow up at the [facility] clinic Problem List: (1) Chronic pancreatitis ICD Codes: K86.1 - Other chronic pancreatitis Status: Chronic Plan: Symptoms are mostly consistent with his chronic pancreatitis given his epigastric abdominal pain with N/V and association with meals Initial lipase on admission WNL at 253 trending to 140 - 110 but with chronic pancreatitis, the enzymes may not be elevated No pain today - IgG4 was ordered to rule out autoimmune pancreatitis. Total IgG level returned at 1200; upon contacting the lab, the sample was sent out for further determination of IgG4 level. Based on discussion with GI, I spoke with the pathologist familiar with his case at [facility] and he agreed to perform immunostaining of biopsy sample for IgG4. CTA of the abdomen was ordered by GI and ruled out mesenteric ischemia. -TPN - IVF hydration with NS at maintenance due to reduced PO intake - Zofran prn - Tylenol and Morphine prn pain - pancreatic enzymes - can take these when he starts eating again - Protonix 20 mg PO daily Medical records reviewed from a prior hospitalization from 04/01/2017 - 04/07/2017. - Echo demonstrated normal EF. - SPECT on 04/03/2017 also done showing no reversible defect. Anticoagulation was discussed with the patient given his a-fib and patient and daughter elected not to proceed with anticoagulation. - MRCP performed on 04/06/2017 was an unremarkable study; showed no significant ductal dilation, no evidence of choledocholithiasis, cholecystectomy changes were noted. -biopsy did not show cancer -biopsy being checked for autoimmune (2) Paroxysmal atrial fibrillation ICD Codes: I48.0 - Paroxysmal atrial fibrillation Status: Chronic Plan: Currently sinus rhythm Continue home amiodarone 200 mg po daily Metroprolol 25 mg Q12H CHADSVASc score of 4 HASBLED of 2 May discuss anticoagulation with patient and daughter again Per previous medical records and hospitalization, patient and daughter elected not to proceed with anticoagulation per evaluation of monitor heart rate sinus no lower than 60 will D/C heart monitor (3) Hypertension ICD Codes: I10 - Essential (primary) hypertension Status: Chronic Plan: Metoprolol 25 mg po q12h Monitor vitals q4h Amlodipine 2.5 mg po daily started per cards recommendations Continue lisinopril 40 mg po daily Clonidine 0.1 mg PRN for SBP >180 (4) Diabetes mellitus ICD Codes: E11.9 - Type 2 diabetes mellitus without complications Status: Chronic Plan: Glucose levels have been >150 in the AM and throughout the day. Likely elevated secondary to initiation of TPN (06/28). On medium-dose NovoLog SSI. Accuchecks ACHS Add basal if needed, will likely need this at home at home will try 20 units of lantus per day. he has had DM for 40 years and is comfortable with his insulin and will call if needed to his Dr as outpt (5) Nutrition, metabolism, and development symptoms ICD Codes: R63.8 - Other symptoms and signs concerning food and fluid intake Status: Acute Plan: Fluids: NS at maintenance Electrolytes: WNL, continue to monitor Nutrition: TPN (06/28). dietary to advise on home TPN DVT ppx: Heparin 5000 units sq q12h Problem Qualifiers (1) Chronic pancreatitis: Qualified Codes: K86.0 - Alcohol-induced chronic pancreatitis (2) Hypertension: Qualified Codes: I10 - Essential (primary) hypertension (3) Diabetes mellitus: Qualified Codes: E10.8 - Type 1 diabetes mellitus with unspecified complications Lisa Marley MD Jul 01, 2017 15:21
--- NOTE | 2017-07-03 15:46 | HHI.DS ---
Discharge Summary Admission Date Jun 24, 2017 at 10:26 Admitting Diagnosis nausea/vomiting, elevated troponin, chronic pancreatitis (1) Chronic pancreatitis Plan: Symptoms are mostly consistent with his chronic pancreatitis given his epigastric abdominal pain with N/V and association with meals Initial lipase on admission WNL at 253 trending to 140 - 110 but with chronic pancreatitis, the enzymes may not be elevated No pain today - IgG4 was ordered to rule out autoimmune pancreatitis. Total IgG level returned at 1200; upon contacting the lab, the sample was sent out for further determination of IgG4 level. Based on discussion with GI, I spoke with the pathologist familiar with his case at [facility] and he agreed to perform immunostaining of biopsy sample for IgG4. CTA of the abdomen was ordered by GI and ruled out mesenteric ischemia. -TPN - IVF hydration with NS at maintenance due to reduced PO intake - Zofran prn - Tylenol and Morphine prn pain - pancreatic enzymes - can take these when he starts eating again - Protonix 20 mg PO daily Medical records reviewed from a prior hospitalization from 04/01/2017 - 04/07/2017. - Echo demonstrated normal EF. - SPECT on 04/03/2017 also done showing no reversible defect. Anticoagulation was discussed with the patient given his a-fib and patient and daughter elected not to proceed with anticoagulation. - MRCP performed on 04/06/2017 was an unremarkable study; showed no significant ductal dilation, no evidence of choledocholithiasis, cholecystectomy changes were noted. -biopsy did not show cancer -biopsy being checked for autoimmune ICD Codes: K86.1 - Other chronic pancreatitis Status: Chronic (2) Paroxysmal atrial fibrillation Plan: Currently sinus rhythm Continue home amiodarone 200 mg po daily Metroprolol 25 mg Q12H CHADSVASc score of 4 HASBLED of 2 May discuss anticoagulation with patient and daughter again Per previous medical records and hospitalization, patient and daughter elected not to proceed with anticoagulation per evaluation of monitor heart rate sinus no lower than 60 will D/C heart monitor ICD Codes: I48.0 - Paroxysmal atrial fibrillation Status: Chronic (3) Hypertension Plan: Metoprolol 25 mg po q12h Monitor vitals q4h Amlodipine 2.5 mg po daily started per cards recommendations Continue lisinopril 40 mg po daily Clonidine 0.1 mg PRN for SBP >180 ICD Codes: I10 - Essential (primary) hypertension Status: Chronic (4) Diabetes mellitus Plan: Glucose levels have been >150 in the AM and throughout the day. Likely elevated secondary to initiation of TPN (06/28). On medium-dose NovoLog SSI. Accuchecks ACHS Add basal if needed, will likely need this at home at home will try 20 units of lantus per day. he has had DM for 40 years and is comfortable with his insulin and will call if needed to his Dr as outpt ICD Codes: E11.9 - Type 2 diabetes mellitus without complications Status: Chronic (5) Nutrition, metabolism, and development symptoms Plan: Fluids: NS at maintenance Electrolytes: WNL, continue to monitor Nutrition: TPN (06/28). dietary to advise on home TPN DVT ppx: Heparin 5000 units sq q12h ICD Codes: R63.8 - Other symptoms and signs concerning food and fluid intake Status: Acute Brief History Mr Bates is a 76 year old male with PMH significant for paroxysmal atrial fibrillation, chronic pancreatitis, HTN, hepatitic C, prostate cancer, DM who presents to the ED with complaints of epigastric abdominal pain over about the past week. He states he had a cracker last night around 2300 and he thinks this may have set his pain off. States his pain is nonradiating, describes it as a steady burning pain and also as dull achy. Denies any sharp pains. He states he has vomited about 3 times over the past day. States the first time he threw up was the day before admission. States the vomit has mostly been orange, same color as his jello. No bilious or bloody vomiting per patient. Endorses having diarrhea that started this past Tuesday. Having diarrhea about 2/3 times daily. Last BM was last night; endorses this was loose. Denies visible blood in stools or melena. Denies fevers, chills, night sweats recently. He states Dr. Gillis is his vp rheumatology. States he recently had an EUS at [facility] and had a biopsy performed which was negative for malignancy. States this was done last week. He also reports he recently had a CT scan of his abdomen and MRCP which he states were both negative. States these were performed about a month ago. These were performed at [facility]. He states Dr. Angulo is his ends down checker. He states he was referred to Dr. Angulo for atrial fibrillation. Last visit was about a month ago. He states he is taking amiodarone 200 mg po daily. The patient denies any current chest pain. Denies palpitations or diaphoresis. He does states he has felt some intermittent chest tightness and sometimes more of a pressure over the course of last week but denies anything current and denies any crushing chest pain. He has no history of typical anginal chest pain and no sxs at all on admission that are suggestive of current angina. His EKGs originally showed ST elevation anteriorly but that resolved on his current EKG. Mr Bates is very hungry and wants liquids this am at least but he is concerned that his pain could return if he eats. He has been on pancreatic enzymes but the type that does not instantly dissolve. He may improve with immediate release enzymes or I explained that some people get chronic pancreatitis and there is little that can be done. GI can see if he needs anything else done but doubt he will be able to avoid all future episodes. CBC/BMP: 07/01/17 0721 07/01/17 0721 Significant Findings Laboratory Tests Test 07/01/17 07:21 Red Blood Count 4.09 MIL/MM3 (4.50-5.90) Hemoglobin 12.5 GM/DL (13.0-17.0) Hematocrit 36.2 % (39.0-51.0) Random Glucose 274 MG/DL (74-106) Estimat Glomerular Filtration Rate 84 ML/MIN (>89) PE at Discharge GENERAL: NAD, lying bed NEURO: Alert. Normal speech. biotechnologist grossly intact. Motor grossly normal. SKIN: Warm and dry. No rashes or erythema. HEAD: Normocephalic. Atraumatic. EYES: EOMI. No scleral icterus. No injection or drainage. ENT: No nasal drainage. Moist mucous membranes. NECK: Supple, trachea midline. CARDIOVASCULAR: Regular rate and rhythm without murmurs, rubs, or gallops. RESPIRATORY: Breath sounds clear to auscultation and equal bilaterally, without wheezes, rales, or rhonchi. GASTROINTESTINAL: Abdomen soft, mild tenderness to palpation in the epigastric region, nondistended, normal BS. MUSCULOSKELETAL: No lower extremity edema. Normal range of motion. Hospital Course Communicated w/Pt's daughter on 07/05 @ 10:15 am. Daughter states patient is having significant pain and dry heaving (similar to vomiting) similar to acute pancreatitis episodes. Has only been on TPN. Have been using 60 units long acting Lantus and multiple administrations of 30 units Novolin to keep sugars under 200. Saw GI specialist today who recommended going to the [facility] ER since patient is already seeing the surgeon there on 07/19. I agreed with plan. Pt Condition on Discharge: Stable Discharge Disposition: Disch w/ Home Health Serv Discharge Instructions DIET: Follow Instructions for: Nothing By Mouth Activities you can perform: Regular-No Restrictions Celeste Romero MD R1 Jul 03, 2017 15:46
--- NOTE | 2017-07-05 12:13 | PQ ---
Physician Query Response Document PATIENT: SCARLET ESPINO : 1940 ADMIT DATE: 06/24/2017 10:26 AM DISCH DATE: 07/01/2017 3:32 PM RESPONDING PROVIDER #: Shahnaz QUERY TEXT: Conflicting Documentation Clarification A single mention or documentation of multiple diagnoses for the same clinical presentation appears in the record. Please clarify the diagnosis/diagnoses - type/acuity of pancreatitis (acute, chronic or acute on chronic). Please also document if the condition is: -- Confirmed and current -- Confirmed, treated and resolved -- Ruled out -- Other, please specify The patient's Clinical Indicators include: Discharge Summary documents diagnosis of: (1) Chronic pancreatitis Plan: Symptoms are mostly consistent with his chronic pancreatitis given his epigastric abdominal pain with N/V and association with meals Initial lipase on admission WNL at 253 trending to 140 - 110 but wit h chronic pancreatitis, the enzymes may not be elevated IgG4 was ordered to rule out autoimmune pancreatitis. Total IgG level returned at 1200; upon contacti ng the lab, the sample was sent out for further determination of IgG4 level. H Dr. Webb's consult under Impression: Patient with recurrent acute pancreatitis, recurrent, li allen underlying chronic pancreatitis. Progress Note of Dr. Webb 06/30/17: acute on chronic pancreatitis Query created by: Coco Galicia on 07/04/2017 12:03 PM RESPONSE TEXT: He has acute on chronic pancreatitis Electronically signed by: Lisa Marley MD 07/05/2017 12:09 PM
== END 2017-07-01 15:32 | disposition home health service (06) | DRG 439 ==
LOC: NEPC 07:36 → NEDA 10:26 → N04B 12:18
PROVIDERS: ADMIT Family Medicine; ATTEND Family Medicine
PROC: 02HV33Z Insertion of Infusion Device into Superior Vena Cava, Percutaneous Approach (ICD-10-PCS; principal; 2017-06-28)
PROC: B548ZZA Ultrasonography of Superior Vena Cava, Guidance (ICD-10-PCS; 2017-06-28)
PROC: 3E0436Z Introduction of Nutritional Substance into Central Vein, Percutaneous Approach (ICD-10-PCS; 2017-06-28)
DX: K85.90 Acute pancreatitis without necrosis or infection, unspecified (principal); N17.9 Acute kidney failure, unspecified; I48.0 Paroxysmal atrial fibrillation; J44.9 Chronic obstructive pulmonary disease, unspecified; E87.1 Hypo-osmolality and hyponatremia; K86.1 Other chronic pancreatitis; E11.9 Type 2 diabetes mellitus without complications; Z79.4 Long term (current) use of insulin; R94.31 Abnormal electrocardiogram [ECG] [EKG]; I10 Essential (primary) hypertension; Z87.891 Personal history of nicotine dependence; F12.90 Cannabis use, unspecified, uncomplicated; M21.372 Foot drop, left foot; R63.4 Abnormal weight loss; K59.00 Constipation, unspecified; Z92.3 Personal history of irradiation; Z85.46 Personal history of malignant neoplasm of prostate; Z79.82 Long term (current) use of aspirin
CPT/HCPCS: 36569; 71010; 74177; 76937; 80048; 80053; 80061; 82150; 82378; 82550; 82784; 82787; 82948; 83605; 83690; 83735; 84484; 85025; 85027; 85610; 85730; 86301; 93005; 94150; 96361; 96374; 96375; J1642; J1644; J1815; J2270; J2405; J7030; Q9963; Q9967

== ENCOUNTER 2017-07-26 11:29 | Emergency (ER) | payer MEDICARE, OTHER ==
[~2017-07-26] VITALS: Ht 193 cm; Wt 94.0 kg
[~2017-07-26 11:29] MED LIST changes: +AMIO200T PO; +AMLO5 PO; +ASPI81CH25 CHEW; -ASPI81TA82 PO; -DORZO2%O EACH EYE; +HYDR-3583 PO; +LANTUS2P SQ; -LANTUSP SQ; -LISI-366 PO; +LISI40TA PO; +METO25TA3 PO; +NOVORP2 IV; +ONDA4TAB7 SL
[2017-07-26 11:31] VITALS: BP 139/63; PULSE 67; RESP 17; TEMP 97.8; O2SAT 96
[2017-07-26] MEDS ORDERED: SODIUM CHLORIDE 0.9% FLUSH 10 ML FLUSH IV FLUSH PRN (11:45)
[2017-07-26] MEDS ORDERED: SODIUM CHLOR 0.9% 1000 ML INJ 1,000 ML IV ONE ×2 (11:45→13:00)
[2017-07-26] MEDS ORDERED: ONDANSETRON HCL 4 MG/2 ML VIAL IVP ONE (11:45)
--- NOTE | 2017-07-26 11:53 | PD ---
HPI Chief Complaint: Abdominal Pain Time Seen by Provider: 11:36 Travel History International Travel<30 days: No Contact w/Intl Traveler<30days: No Traveled to known affect area: No History of Present Illness HPI 76-year-old male with PMH of chronic pancreatitis presents to the ED for evaluation of 2 day history of increased abdominal pain, nausea and vomiting. Pain rated 8/10, constant, no alleviating or exacerbating factors reported. Patient also complains of 5 day history of constipation. He endorses passing gas from above and below. He has been unable to keep down his pain and nausea medications. He denies fevers, chills, productive cough, chest pain, hematemesis, melena, hematochezia. The patient is receiving TPN through a PICC line, taking only medications and water by mouth. He scheduled for a Whipple procedure at the [facility] on 05 August. He took a laxative this morning that did not produce a bowel movement. He is followed by Dr. Chairez, PCP. [facility] Past Medical History Arthritis: Yes Cancer: Yes (skin cancer,prostate) Cardiovascular Problems: No High Cholesterol: Yes Chemotherapy: No Chest Pain: Yes (Pleurisy) Diabetes: Yes Patient Takes Glucophage: No Diminished Hearing: No Endocrine: Yes Genitourinary: Yes Hepatitis: Yes (HEP C) Hiatal Hernia: No Hypertension: Yes Immune Disorder: No Kidney Stones: Yes Musculoskeletal: Yes Neurologic: Yes Psychiatric: No Reproductive: No Respiratory: Yes Pancreatitis: Yes Radiation Therapy: Yes Thyroid Disease: No Tetanus Vaccination: < 5 Years Influenza Vaccination: No Past Surgical History Abdominal Surgery: Yes (gallbladder, appendix) Appendectomy: Yes Body Medical Devices: PENILE IMPLANT Cholecystectomy: Yes Genitourinary Surgery: Yes (PENILE IMPLANT) Neurologic Surgery: Yes (fractured skull) Thoracic Surgery: Yes (TRACHEOSTOMY) Social History Alcohol Use: No (STOPPED DRINKING 2010) Tobacco Use: No Substance Use: Yes (marijuana) Allergies-Medications (Allergen,Severity, Reaction): Coded Allergies: No Known Allergies (Verified , 06/24/17) Reported Meds & Prescriptions Reported Meds & Active Scripts Active Phenergan Supp (Promethazine HCl) 25 Mg Supp 25 Mg RECTAL Q6H PRN Zofran Odt (Ondansetron Odt) 4 Mg Tab 4 Mg SL Q6HR PRN Ondansetron Odt 4 Mg Tab 4 Mg SL Q6HR PRN Aspirin Low Strength (Aspirin) 81 Mg Chew 81 Mg CHEW DAILY Reported Metoprolol Tartrate 25 Mg Tab 12.5 Mg PO BID Lantus Inj (Insulin Glargine) 1,000 Unit/10 Ml Vial 50 Units SQ HS Novolin R Inj (Insulin Human Regular) 1,000 Unit/10 Ml Vial 50 Units IV DAILY IN TPN BAG IV DAILY Amiodarone (Amiodarone HCl) 200 Mg Tab 200 Mg PO DAILY Review of Systems Except as stated in HPI: all other systems reviewed are Neg Physical Exam Narrative GENERAL: Well-nourished, well-developed white male in no acute distress. SKIN: Focused skin assessment warm/dry. Tattoos noted. HEAD: Normocephalic. EYES: No scleral icterus. No injection or drainage. NECK: Supple, trachea midline. No JVD or lymphadenopathy. CARDIOVASCULAR: Regular rate and rhythm without murmurs, gallops, or rubs. RESPIRATORY: Breath sounds clear and equal bilaterally. No accessory muscle use. GASTROINTESTINAL: Abdomen soft, nondistended, no palpable masses. Tender to palpation in the epigastric region and left upper quadrant. Hypoactive bowel sounds. MUSCULOSKELETAL: No cyanosis, or edema. BACK: Nontender without obvious deformity. No CVA tenderness. Data Data Last Documented VS Vital Signs Date Time Temp Pulse Resp B/P (MAP) Pulse Ox O2 Delivery O2 Flow Rate FiO2 07/26/17 15:14 16 121/67 (85) 98 07/26/17 14:00 14 Room Air 07/26/17 11:31 97.8 Orders Orders Complete Blood Count With Diff (07/26/17 11:38) Comprehensive Metabolic Panel (07/26/17 11:38) Lipase (07/26/17 11:38) Iv Access Insert/Monitor (07/26/17 11:38) Ecg Monitoring (07/26/17 11:38) Oximetry (07/26/17 11:38) Ondansetron Inj (Zofran Inj) (07/26/17 11:45) Sodium Chloride 0.9% Flush (Ns Flush) (07/26/17 11:45) Sodium Chlor 0.9% 1000 Ml Inj (Ns 1000 M (07/26/17 11:45) Hydromorphone Pf Inj (Dilaudid Pf Inj) (07/26/17 12:00) Morphine Inj (Morphine Inj) (07/26/17 12:00) Diphenhydramine Inj (Benadryl Inj) (07/26/17 12:15) Sodium Chlor 0.9% 1000 Ml Inj (Ns 1000 M (07/26/17 13:00) Calcium Carbonate Chew (Tums Chew) (07/26/17 13:15) Promethazine Liq (Phenergan Liq) (07/26/17 13:30) Morphine Inj (Morphine Inj) (07/26/17 13:30) Ed Discharge Order (07/26/17 14:23) Labs Laboratory Tests Test 07/26/17 11:50 White Blood Count 10.6 TH/MM3 Red Blood Count 4.21 MIL/MM3 Hemoglobin 13.2 GM/DL Hematocrit 38.2 % Mean Corpuscular Volume 90.7 FL Mean Corpuscular Hemoglobin 31.3 PG Mean Corpuscular Hemoglobin Concent 34.5 % Red Cell Distribution Width 13.8 % Platelet Count 208 TH/MM3 Mean Platelet Volume 9.1 FL Neutrophils (%) (Auto) 76.8 % Lymphocytes (%) (Auto) 13.3 % Monocytes (%) (Auto) 7.8 % Eosinophils (%) (Auto) 1.8 % Basophils (%) (Auto) 0.3 % Neutrophils # (Auto) 8.2 TH/MM3 Lymphocytes # (Auto) 1.4 TH/MM3 Monocytes # (Auto) 0.8 TH/MM3 Eosinophils # (Auto) 0.2 TH/MM3 Basophils # (Auto) 0.0 TH/MM3 CBC Comment DIFF FINAL Differential Comment Blood Urea Nitrogen 32 MG/DL Creatinine 1.20 MG/DL Random Glucose 165 MG/DL Total Protein 7.6 GM/DL Albumin 2.8 GM/DL Calcium Level 8.2 MG/DL Alkaline Phosphatase 129 U/L Aspartate Amino Transf (AST/SGOT) 20 U/L Alanine Aminotransferase (ALT/SGPT) 17 U/L Total Bilirubin 0.3 MG/DL Sodium Level 133 MEQ/L Potassium Level 4.7 MEQ/L Chloride Level 107 MEQ/L Carbon Dioxide Level 19.2 MEQ/L Anion Gap 7 MEQ/L Estimat Glomerular Filtration Rate 59 ML/MIN Lipase 124 U/L [facility] Medical Decision Making Medical Screen Exam Complete: Yes Emergency Medical Condition: Yes Differential Diagnosis Dehydration versus constipation versus chronic pancreatitis versus other Narrative Course 76-year-old male with PMH of chronic pancreatitis presents to the ED for evaluation of 2 day history of increased abdominal pain, nausea and vomiting. Pain rated 8/10, constant, no alleviating or exacerbating factors reported. He endorses passing gas from above and below. He has been unable to keep down his pain and nausea medications. Patient is on TPN through a PICC line, taking only medications and water by mouth. He scheduled for a Whipple procedure at the [facility] on 05 August. He took a laxative this morning that did not produce a bowel movement. He is followed by Dr. Chairez, PCP. Daughter is at bedside, currently managing her father's medical issues. Vitals reviewed. Physical exam reveals a chronically ill-appearing white male in no acute distress. Abdomen tender in the upper quadrants bilaterally. Exam otherwise unremarkable. IV was established. Patient was administered 1L NS, 4 mg Zofran and 6 mg of morphine IV. Shortly after administration of medications the nurse noted some erythema in the area of the IV. Patient was administered 25 mg Benadryl IV CBC: No anemia or leukocytosis CMP: Sodium 133, BUN 32, creatinine 1.2. Calcium 8.2. On recheck the erythema of the arm has resolved. Patient was administered a second liter of normal saline IV. Patient states pain has returned, was administered an additional 4 mg of morphine, 1 g calcium and 6.5 mg Phenergan IV mouth. Patient reports improvement of his symptoms. Daughter states that he has a follow-up appointment with his primary care in a few days. The patient has not been taking his pain medications as prescribed, only "as needed. " He was instructed to take medications every 4-6 hours as prescribed, continue with antiemetics prior to administration of pain medications. He is provided a short course of Zofran and Phenergan suppositories. She was cautioned regarding serotonin syndrome. Patient's instructed to follow-up with the primary care as planned, return for worsening symptoms. The patient and his daughter indicated understanding of the instructions and agreeable to the care plan. The patient is stable and discharged home. Diagnosis Primary Impression: Chronic abdominal pain Additional Impression: Nausea Referrals: General Surgeon Patient Instructions: Acute Nausea and Vomiting (ED), General Instructions Additional Instructions: Rest, hydrate. Administer nausea medications 15-20 minutes prior to pain medications. Administer pain medications as they are prescribed, every 4-6 hours. Follow up with the primary care and surgeon as planned. Return to the ED for worsening symptoms or any urgent/ emergent medical condition. Med/Other Pt SpecificInfo: Prescription(s) given Scripts Promethazine Supp (Phenergan Supp) 25 Mg Supp 25 MG RECTAL Q6H Y for NAUSEA OR VOMITING, #10 SUPP 0 Refills Prov: Hallie Segura MD 07/26/17 Ondansetron Odt (Zofran Odt) 4 Mg Tab 4 MG SL Q6HR Y for Nausea/Vomiting, #14 TAB 0 Refills Prov: Hallie Segura MD 07/26/17 Disposition: 01 DISCHARGE HOME Condition: Stable Danna Van Jul 26, 2017 11:53
[2017-07-26] MEDS ORDERED: MORPHINE SULFATE 8 MG/ML INJ IV PUSH ONE (12:00)
[2017-07-26] MEDS ORDERED: HYDROmorphone HCL PF 0.5 MG/0.5 ML SYRINGE IV PUSH ONE (12:00)
[2017-07-26 12:15] LABS: AUTOMATED NEUTROPHIL # 8.2 TH/MM3 (1.8-7.7); BASOPHIL % 0.3 % (0.0-2.0); EOSINOPHIL # 0.2 TH/MM3 (0-0.4); EOSINOPHIL % 1.8 % (0.0-4.0); HEMATOCRIT 38.2 % (39.0-51.0); HEMO FLAGS DIFF FINAL; LYMPH % 13.3 % (9.0-44.0); LYMPHOCYTE # 1.4 TH/MM3 (1.0-4.8); MEAN CELL VOLUME 90.7 FL (80.0-100.0); MEAN CORPUSCULAR HEMOGLOBIN 31.3 PG (27.0-34.0); MEAN CORPUSCULAR HGB CONC 34.5 % (32.0-36.0); MONO % 7.8 % (0.0-8.0); NEUT % 76.8 % (16.0-70.0); PLATELET COUNT 208 TH/MM3 (150-450); RED BLOOD COUNT 4.21 MIL/MM3 (4.50-5.90); RED CELL DISTRIBUTION WIDTH 13.8 % (11.6-17.2); WHITE BLOOD COUNT 10.6 TH/MM3 (4.0-11.0)
[2017-07-26] MEDS ORDERED: diphenhydrAMINE HCL 50 MG/ML VIAL IV PUSH ONE (12:15)
[2017-07-26 12:27] VITALS: BP 113/59; PULSE 65; RESP 16; O2SAT 96
[2017-07-26 12:30] LABS: ALT (GPT) 17 U/L (12-78); ANION GAP 7 MEQ/L (5-15); AST (GOT) 20 U/L (15-37); BICARBONATE 19.2 MEQ/L (21.0-32.0); BLOOD UREA NITROGEN 32 MG/DL (7-18); CHLORIDE 107 MEQ/L (98-107); GLOMERULAR FILTRATION RATE 59 ML/MIN (>89); POTASSIUM 4.7 MEQ/L (3.5-5.1); SODIUM (NA) 133 MEQ/L (136-145)
[2017-07-26 12:33] LABS: ALKALINE PHOSPHATASE 129 U/L (45-117); TOTAL BILIRUBIN ADULT 0.3 MG/DL (0.2-1.0)
[2017-07-26] MEDS ORDERED: METO25TA3 PO ×2 (12:52)
[2017-07-26] MEDS ORDERED: LANTUS2P SQ ×2 (12:52)
[2017-07-26] MEDS ORDERED: CALCIUM CARBONATE 500 MG CHEWABLE TAB CHEW ONE (13:15)
[2017-07-26] MEDS ORDERED: PROMETHAZINE HCL SYRUP 6.25 MG/5 ML CUP PO ONE (13:30)
[2017-07-26] MEDS ORDERED: MORPHINE SULFATE 4 MG/ML INJ IV PUSH ONE (13:30)
[2017-07-26 14:00] VITALS: BP 124/65; PULSE 70; RESP 14; O2SAT 97
[2017-07-26] MEDS ORDERED: ZOFR4TAB3 SL (14:19)
[2017-07-26] MEDS ORDERED: PROM1SUP7 RECTAL (14:19)
[2017-07-26 15:14] VITALS: BP 121/67
== END 2017-07-26 15:16 | disposition home or self-care (01) ==
LOC: NEPC 11:29
DX: G89.29 Other chronic pain (principal); R10.9 Unspecified abdominal pain; R11.2 Nausea with vomiting, unspecified; E11.9 Type 2 diabetes mellitus without complications; I10 Essential (primary) hypertension; Z79.4 Long term (current) use of insulin
CPT/HCPCS: 80053; 83690; 85025; 96361; 96374; 96375; 96376; 99284; J1200; J2270; J2405; J7030

== ENCOUNTER 2017-07-31 11:35 | Observation (INO) | payer MEDICARE, OTHER ==
[~2017-07-31] VITALS: Ht 193 cm; Wt 95.0 kg
[2017-07-31] VITALS (7 sets, daily range): BP systolic 114–124; BP diastolic 60–70; PULSE 70–80; RESP 16–22; TEMP 97.8–98; O2SAT 93–98
[~2017-07-31 11:35] MED LIST changes: +PROM1SUP7 RECTAL; +ZOFR4TAB3 SL
[2017-07-31] MEDS ORDERED: SODIUM CHLOR 0.9% 1000 ML INJ 1,000 ML IV SCH (11:59)
[2017-07-31] MEDS ORDERED: ONDANSETRON HCL 4 MG/2 ML VIAL IVP ONE (12:00)
[2017-07-31] MEDS ORDERED: MORPHINE SULFATE 4 MG/ML INJ IV PUSH ONE (12:00)
[2017-07-31] MEDS ORDERED: SODIUM CHLORIDE 0.9% FLUSH 10 ML FLUSH IV FLUSH PRN ×2 (12:00→14:45)
[2017-07-31 12:23] LABS: BASOPHIL % 0.2 % (0.0-2.0); EOSINOPHIL # 0.1 TH/MM3 (0-0.4); EOSINOPHIL % 1.7 % (0.0-4.0); HEMATOCRIT 35.8 % (39.0-51.0); HEMO FLAGS DIFF FINAL; LYMPH % 9.4 % (9.0-44.0); LYMPHOCYTE # 0.8 TH/MM3 (1.0-4.8); MEAN CELL VOLUME 91.9 FL (80.0-100.0); MEAN CORPUSCULAR HEMOGLOBIN 30.4 PG (27.0-34.0); MEAN CORPUSCULAR HGB CONC 33.1 % (32.0-36.0); MONO % 7.8 % (0.0-8.0); NEUT % 80.9 % (16.0-70.0); PLATELET COUNT 219 TH/MM3 (150-450); RED BLOOD COUNT 3.89 MIL/MM3 (4.50-5.90); RED CELL DISTRIBUTION WIDTH 14.1 % (11.6-17.2); WHITE BLOOD COUNT 8.6 TH/MM3 (4.0-11.0)
--- NOTE | 2017-07-31 12:31 | PD ---
HPI Chief Complaint: Medical Clearance Time Seen by Provider: 11:49 Travel History International Travel<30 days: No Contact w/Intl Traveler<30days: No Traveled to known affect area: No History of Present Illness HPI 76-year-old male presents to the emergency department for continuing epigastric abdominal pain, nausea. Patient is scheduled to get a Whipple procedure done at [facility] on Saturday, August 05, 2017. The patient is receiving TPN through a PICC line in the right upper extremity. He reports having a mass on the pancreas that has been biopsied. He has history of chronic pancreatitis. He denies being a heavy drinker. The patient has been taking Zofran and Phenergan without relief of the nausea. He also reports generalized weakness. He denies any radiation of the epigastric pain. The daughter at bedside also states for approximately the past 4 hours, he has been acting more confused and talking to people who aren't there. He was here on July 26 and given IV fluids as well as placed on the Phenergan for chronic abdominal pain. Severity is moderate. No exacerbating or alleviating factors. PFSH Past Medical History Hx Anticoagulant Therapy: Yes (asa) Arthritis: Yes Cancer: Yes (skin cancer,prostate) Cardiovascular Problems: No High Cholesterol: Yes Chemotherapy: No Chest Pain: Yes (Pleurisy) Diabetes: Yes Patient Takes Glucophage: No Diminished Hearing: No Endocrine: Yes GERD: Yes Genitourinary: Yes Hepatitis: Yes (HEP C) Hiatal Hernia: No Hypertension: Yes Immune Disorder: No Kidney Stones: Yes Musculoskeletal: Yes Neurologic: Yes Psychiatric: No Reproductive: No Respiratory: Yes Pancreatitis: Yes Radiation Therapy: Yes Sleep Apnea: Yes Thyroid Disease: No Tetanus Vaccination: > 5 Years Influenza Vaccination: No Past Surgical History Abdominal Surgery: Yes (gallbladder, appendix) Appendectomy: Yes Body Medical Devices: PENILE IMPLANT Cholecystectomy: Yes Genitourinary Surgery: Yes (PENILE IMPLANT) Neurologic Surgery: Yes (fractured skull) Thoracic Surgery: Yes (TRACHEOSTOMY) Social History Alcohol Use: No (STOPPED DRINKING 2010) Tobacco Use: No Substance Use: Yes (marijuana) Allergies-Medications (Allergen,Severity, Reaction): Coded Allergies: No Known Allergies (Verified Allergy, Unknown, 07/31/17) Reported Meds & Prescriptions Reported Meds & Active Scripts Active Phenergan Supp (Promethazine HCl) 25 Mg Supp 25 Mg RECTAL Q6H PRN Zofran Odt (Ondansetron Odt) 4 Mg Tab 4 Mg SL Q6HR PRN Ondansetron Odt 4 Mg Tab 4 Mg SL Q6HR PRN Aspirin Low Strength (Aspirin) 81 Mg Chew 81 Mg CHEW DAILY Reported Metoprolol Tartrate 25 Mg Tab 12.5 Mg PO BID Lantus Inj (Insulin Glargine) 1,000 Unit/10 Ml Vial 50 Units SQ HS Novolin R Inj (Insulin Human Regular) 1,000 Unit/10 Ml Vial 50 Units IV DAILY IN TPN BAG IV DAILY Amiodarone (Amiodarone HCl) 200 Mg Tab 200 Mg PO DAILY Review of Systems Except as stated in HPI: all other systems reviewed are Neg Physical Exam Narrative GENERAL: Chronically ill-appearing male patient, afebrile. Patient is alert and oriented to person, place, time. SKIN: Focused skin assessment warm/dry. Patient has PICC line to the right upper extremity. HEAD: Normocephalic. Atraumatic. ENT: Mucosa pink and moist. No erythema or exudates. No uvular edema. No uvular , palatal, or tonsillar deviation. Airway patent. Nasal turbinates appear normal without nasal blood, purulent drainage or septal hematoma. Bilateral tympanic membranes are clear without erythema or perforation. EYES: No scleral icterus. No injection or drainage. PERRLA. NECK: Supple, trachea midline. No JVD or lymphadenopathy. CARDIOVASCULAR: Regular rate and rhythm without murmurs, gallops, or rubs. Bilateral radial and pedal pulses are 2+. RESPIRATORY: Breath sounds equal bilaterally. No accessory muscle use. Lungs sounds are clear to auscultation. GASTROINTESTINAL: Abdomen soft and nondistended. She has tenderness over epigastric region. MUSCULOSKELETAL: No cyanosis, or edema. BACK: Nontender without obvious deformity. No CVA tenderness. NEUROLOGICAL: Awake and alert. Cranial nerves II through XII intact. Motor and sensory grossly within normal limits. Five out of 5 muscle strength in all muscle groups. Normal speech. Finger to nose is normal bilaterally. Heel-to- saucedo is normal bilaterally. Data Data Last Documented VS Vital Signs Date Time Temp Pulse Resp B/P (MAP) Pulse Ox O2 Delivery O2 Flow Rate FiO2 07/31/17 13:52 70 123/68 (86) 95 Room Air 07/31/17 12:00 18 07/31/17 11:38 98.0 Orders Orders Complete Blood Count With Diff (07/31/17 11:59) Comprehensive Metabolic Panel (07/31/17 11:59) Lipase (07/31/17 11:59) Prothrombin Time / Inr (Pt) (07/31/17 11:59) Act Partial Throm Time (Ptt) (07/31/17 11:59) Urinalysis - C+S If Indicated (07/31/17 11:59) Iv Access Insert/Monitor (07/31/17 11:59) Ecg Monitoring (07/31/17 11:59) Oximetry (07/31/17 11:59) Morphine Inj (Morphine Inj) (07/31/17 12:00) Ondansetron Inj (Zofran Inj) (07/31/17 12:00) Sodium Chlor 0.9% 1000 Ml Inj (Ns 1000 M (07/31/17 11:59) Sodium Chloride 0.9% Flush (Ns Flush) (07/31/17 12:00) Electrocardiogram (07/31/17 11:59) Chest, Single Ap (07/31/17 11:59) Creatine Kinase (Cpk) (07/31/17 11:59) Troponin I (07/31/17 11:59) Magnesium (Mg) (07/31/17 11:59) Admit Order (Ed Use Only) (07/31/17 14:38) Vital Signs (Adult) Q4H (07/31/17 14:37) Activity Oob With Assistance (07/31/17 14:37) [employer] / Telemetry .CONTINUOUS (07/31/17 14:37) Intake + Output HUDSON.QSHIFT (07/31/17 14:37) Sodium Chlor 0.45% 1000 Ml Inj (1/2 Ns 1 (07/31/17 15:00) Sodium Chloride 0.9% Flush (Ns Flush) (07/31/17 14:45) Sodium Chloride 0.9% Flush (Ns Flush) (07/31/17 21:00) Ondansetron Inj (Zofran Inj) (07/31/17 14:45) Scd Bilateral/Knee High HUDSON.BID (07/31/17 14:37) Naloxone Inj (Narcan Inj) (07/31/17 14:45) Place In Observation (07/31/17 ) Labs Laboratory Tests Test 07/31/17 12:15 White Blood Count 8.6 TH/MM3 Red Blood Count 3.89 MIL/MM3 Hemoglobin 11.9 GM/DL Hematocrit 35.8 % Mean Corpuscular Volume 91.9 FL Mean Corpuscular Hemoglobin 30.4 PG Mean Corpuscular Hemoglobin Concent 33.1 % Red Cell Distribution Width 14.1 % Platelet Count 219 TH/MM3 Mean Platelet Volume 8.6 FL Neutrophils (%) (Auto) 80.9 % Lymphocytes (%) (Auto) 9.4 % Monocytes (%) (Auto) 7.8 % Eosinophils (%) (Auto) 1.7 % Basophils (%) (Auto) 0.2 % Neutrophils # (Auto) 7.0 TH/MM3 Lymphocytes # (Auto) 0.8 TH/MM3 Monocytes # (Auto) 0.7 TH/MM3 Eosinophils # (Auto) 0.1 TH/MM3 Basophils # (Auto) 0.0 TH/MM3 CBC Comment DIFF FINAL Differential Comment Prothrombin Time 11.3 SEC Prothromb Time International Ratio 1.1 RATIO Activated Partial Thromboplast Time 23.1 SEC Blood Urea Nitrogen 24 MG/DL Creatinine 1.15 MG/DL Random Glucose 245 MG/DL Total Protein 7.3 GM/DL Albumin 2.6 GM/DL Calcium Level 8.0 MG/DL Magnesium Level 1.9 MG/DL Alkaline Phosphatase 146 U/L Aspartate Amino Transf (AST/SGOT) 31 U/L Alanine Aminotransferase (ALT/SGPT) 31 U/L Total Bilirubin 0.5 MG/DL Sodium Level 134 MEQ/L Potassium Level 4.9 MEQ/L Chloride Level 106 MEQ/L Carbon Dioxide Level 21.4 MEQ/L Anion Gap 7 MEQ/L Estimat Glomerular Filtration Rate 62 ML/MIN Total Creatine Kinase 87 U/L Troponin I 0.06 NG/ML Lipase 118 U/L MDM Medical Decision Making Medical Screen Exam Complete: Yes Emergency Medical Condition: Yes Medical Record Reviewed: Yes Interpretation(s) Last Impressions Chest X-Ray 07/31/17 3339 Signed Impressions: Service Date/Time: Monday, July 31, 2017 12:27 - CONCLUSION: 1. Right- sided PICC line with tip in the jugular vein. 2. Left basilar density could be atelectasis or infiltrate. 3. Cardiomegaly. Heber Ospina MD Differential Diagnosis Dehydration versus electrolyte abnormality versus chronic pancreatitis versus chronic abdominal pain Narrative Course 76-year-old male presents to the emergency department with his daughter for side for evaluation of persistent nausea despite Phenergan and Zofran as well as chronic epigastric pain. Patient scheduled to have a Whipple this Tuesday. IV access established. CBC, CMP, magnesium, CK, troponin, lipase, PTT, PT/INR, UA are ordered and pending. EKG and chest x-ray ordered and pending. Patient is given normal saline 1 L IV bolus, Zofran 4 mg IV, morphine 4 mg IV. EKG shows atrial fibrillation, heart rate 74, no acute ST changes. Patient does report a history of A. fib in the past and states that is why he is on his amiodarone. CBC shows anemia of 11.9,hct 35.8. CMP shows BUN 24, glucose 245. Magnesium is 1.9. CK is 87. Troponin is 0.06. Lipase is 118. Coags show no acute abnormalities. UA is pending. Chest x-ray shows Right-sided PICC line with tip in the jugular vein; Left basilar density could be atelectasis or infiltrate; Cardiomegaly. My attending physician, Dr. Lazo, has examined patient is well. Daughter is concerned about delirium, intermittent confusion. The patient has nausea despite being on Phenergan and Zofran. The patient will be admitted for 23 hour observation for delirium. This is most likely due to polypharmacy. We need to be able to control his medication, but keep him from being delirious at the same time. Dr. Mckeon accepted admission. Diagnosis Primary Impression: Delirium Additional Impression: Chronic pancreatitis Qualified Codes: K86.1 - Other chronic pancreatitis Admitting Information Admitting Physician Requests: Observation Itz Brizuelaviridiana WITT Jul 31, 2017 12:31
[2017-07-31 12:32] LABS: INTERNATIONAL NORMALIZED RATIO 1.1 RATIO; PROTHROMBIN TIME - PATIENT 11.3 SEC (9.8-11.6)
[2017-07-31 12:37] LABS: APTT (PATIENT) 23.1 SEC (24.3-30.1)
--- NOTE | 2017-07-31 12:45 | RADRPT ---
EXAM DATE/TIME: 07/31/2017 12:27 [facility] COMPARISON: CHEST SINGLE AP, June 28, 2017, 16:58. INDICATIONS : Chest pain MEDICAL HISTORY : Emphysema. Pancreatitis. A-fib. SURGICAL HISTORY : Appendectomy. Cholecystectomy. ENCOUNTER: Sequela ACUITY: 2 months PAIN SCORE: 8/10 LOCATION: Bilateral chest FINDINGS: A single view of the chest demonstrates cardiomegaly and left basilar density. Right lung clear. Righ t-sided PICC line with tip in the jugular vein. The cardiomediastinal contours are unremarkable. Oss eous structures are intact. CONCLUSION: 1. Right-sided PICC line with tip in the jugular vein. 2. Left basilar density could be atelectasis or infiltrate. 3. Cardiomegaly. Heber Ospina MD on July 31, 2017 at 12:42 Board Certified Radiologist. This report was verified electronically.
[2017-07-31 13:10] LABS: ALKALINE PHOSPHATASE 146 U/L (45-117); ALT (GPT) 31 U/L (12-78); ANION GAP 7 MEQ/L (5-15); AST (GOT) 31 U/L (15-37); BICARBONATE 21.4 MEQ/L (21.0-32.0); BLOOD UREA NITROGEN 24 MG/DL (7-18); CHLORIDE 106 MEQ/L (98-107); GLOMERULAR FILTRATION RATE 62 ML/MIN (>89); MAGNESIUM 1.9 MG/DL (1.5-2.5); SODIUM (NA) 134 MEQ/L (136-145); TOTAL BILIRUBIN ADULT 0.5 MG/DL (0.2-1.0)
[2017-07-31 13:23] LABS: CREATINE KINASE 87 U/L (39-308); POTASSIUM 4.9 MEQ/L (3.5-5.1)
[2017-07-31] MEDS ORDERED: NALOXONE HCL 0.4 MG/ML AMP IV PUSH PRN (14:45)
--- NOTE | 2017-07-31 14:46 | PD ---
Data Data Last Documented VS Vital Signs Date Time Temp Pulse Resp B/P (MAP) Pulse Ox O2 Delivery O2 Flow Rate FiO2 07/31/17 13:52 70 123/68 (86) 95 Room Air 07/31/17 12:00 18 07/31/17 11:38 98.0 Orders Orders Complete Blood Count With Diff (07/31/17 11:59) Comprehensive Metabolic Panel (07/31/17 11:59) Lipase (07/31/17 11:59) Prothrombin Time / Inr (Pt) (07/31/17 11:59) Act Partial Throm Time (Ptt) (07/31/17 11:59) Urinalysis - C+S If Indicated (07/31/17 11:59) Iv Access Insert/Monitor (07/31/17 11:59) Ecg Monitoring (07/31/17 11:59) Oximetry (07/31/17 11:59) Morphine Inj (Morphine Inj) (07/31/17 12:00) Ondansetron Inj (Zofran Inj) (07/31/17 12:00) Sodium Chlor 0.9% 1000 Ml Inj (Ns 1000 M (07/31/17 11:59) Sodium Chloride 0.9% Flush (Ns Flush) (07/31/17 12:00) Electrocardiogram (07/31/17 11:59) Chest, Single Ap (07/31/17 11:59) Creatine Kinase (Cpk) (07/31/17 11:59) Troponin I (07/31/17 11:59) Magnesium (Mg) (07/31/17 11:59) Labs Laboratory Tests Test 07/31/17 12:15 White Blood Count 8.6 TH/MM3 Red Blood Count 3.89 MIL/MM3 Hemoglobin 11.9 GM/DL Hematocrit 35.8 % Mean Corpuscular Volume 91.9 FL Mean Corpuscular Hemoglobin 30.4 PG Mean Corpuscular Hemoglobin Concent 33.1 % Red Cell Distribution Width 14.1 % Platelet Count 219 TH/MM3 Mean Platelet Volume 8.6 FL Neutrophils (%) (Auto) 80.9 % Lymphocytes (%) (Auto) 9.4 % Monocytes (%) (Auto) 7.8 % Eosinophils (%) (Auto) 1.7 % Basophils (%) (Auto) 0.2 % Neutrophils # (Auto) 7.0 TH/MM3 Lymphocytes # (Auto) 0.8 TH/MM3 Monocytes # (Auto) 0.7 TH/MM3 Eosinophils # (Auto) 0.1 TH/MM3 Basophils # (Auto) 0.0 TH/MM3 CBC Comment DIFF FINAL Differential Comment Prothrombin Time 11.3 SEC Prothromb Time International Ratio 1.1 RATIO Activated Partial Thromboplast Time 23.1 SEC Blood Urea Nitrogen 24 MG/DL Creatinine 1.15 MG/DL Random Glucose 245 MG/DL Total Protein 7.3 GM/DL Albumin 2.6 GM/DL Calcium Level 8.0 MG/DL Magnesium Level 1.9 MG/DL Alkaline Phosphatase 146 U/L Aspartate Amino Transf (AST/SGOT) 31 U/L Alanine Aminotransferase (ALT/SGPT) 31 U/L Total Bilirubin 0.5 MG/DL Sodium Level 134 MEQ/L Potassium Level 4.9 MEQ/L Chloride Level 106 MEQ/L Carbon Dioxide Level 21.4 MEQ/L Anion Gap 7 MEQ/L Estimat Glomerular Filtration Rate 62 ML/MIN Total Creatine Kinase 87 U/L Troponin I 0.06 NG/ML Lipase 118 U/L MDM Supervised Visit with JUAN J: No Narrative Course The history, exam, and medical decision-making in the associated midlevel provider note were completed with my assistance. I reviewed and agree with the findings presented. I attest that I had a [id number] encounter with the patient on the same day, and personally performed and documented my assessment and findings in the medical record. *My assessment and Findings: This is a 76-year-old male who presents to the emergency department with a history chronic pancreatitis. He is currently scheduled to have a Whipple performed in 5 days at an outside hospital. He is on TPN and he is receiving normal saline at home. He continues to have intractable nausea and pain despite Lortab, Zofran and Phenergan. His daughter provides most of the history. While he was in the room the patient was asking for water and the daughter was refusing him water. She recently requested normal saline bags because she was concerned the patient was getting dehydrated. The daughter reports that he's been increasingly confused today and he's been hallucinating, talking to people that don't exist. I suspect polypharmacy may be contributing to his delirium. I think he requires observation for symptomatic control and to simplify his medications. Family dynamic concerns me, and the interaction I witnessed with the daughter made me consider Munchhausen's by proxy. I think patient should be placed in observation, interactions with family should be limited and we should simplify medications to ensure he has clear mental status and his symptoms are controlled. Diagnosis Primary Impression: Delirium Additional Impression: Chronic pancreatitis Qualified Codes: K86.1 - Other chronic pancreatitis Admitting Information Admitting Physician Requests: Observation Zahra Zuluaga MD Jul 31, 2017 14:46
[2017-07-31] MEDS ORDERED: PROMETHAZINE HCL 25 MG SUPP RECTAL PRN (15:15)
--- NOTE | 2017-07-31 15:20 | HHI.HP ---
[facility] Chasity Chairez MD Admission Diagnosis delirium, chronic pancreatitis Diagnoses: Chief Complaint: Altered mental status Travel History International Travel<30 Days: No Contact w/Intl Traveler <30 Da: No Traveled to Known Affected Are: No History of Present Illness This is a 76-year-old male past medical history significant for chronic pancreatitis who presented with questionable altered mental status. Interview was taken from patient. At the time when I interviewed the patient he was AAO 4. Patient was able to tell me his name, location, and month. He was also able to me current events and his medical condition. Patient was able to give me an appropriate history. He stated that he came to the hospital because he was acting "goofy." He would do things that did not make sense. Patient stated that this occurred this morning. He stated yesterday he did have increased abdominal pain in which she took extra tablets of oxycodone and to get more frequently. Patient stated that his main concern is actually uncontrolled pain. He stated that morphine works the best for him and wants to be on morphine. He does not feel like oxycodone controls his pain. Patient stated that he has an appointment for his Whipple surgery on 08/05/17 at [facility]. He stated that he is hoping that he did not have any flareup because he was told that if the pancreas is inflamed he would not be would have surgery. Patient denied any nausea or vomiting. He stated that he receives TPN. He remains afebrile. Patient stated that he feels like he is a burden for his daughter because it takes a lot to take care of him. Patient denies any depression. All other review of system reviewed and negative. Past Family Social History Past Medical History Paroxysmal atrial fibrillation Prostate Cancer diagnosed about 4 years ago Chronic pancreatitis H/o bowel obstruction DM Hepatitic C s/p Harvoni therapy HTN Emphysema Past Surgical History Rotator cuff repair bilaterally Cholecystectomy Appendectomy per patient Bilateral knee surgeries Tracheotomy Surgery for herniated disc Reported Medications Reported Meds & Active Scripts Active Phenergan Supp (Promethazine HCl) 25 Mg Supp 25 Mg RECTAL Q6H PRN Zofran Odt (Ondansetron Odt) 4 Mg Tab 4 Mg SL Q6HR PRN Ondansetron Odt 4 Mg Tab 4 Mg SL Q6HR PRN Aspirin Low Strength (Aspirin) 81 Mg Chew 81 Mg CHEW DAILY Reported Metoprolol Tartrate 25 Mg Tab 12.5 Mg PO BID Lantus Inj (Insulin Glargine) 1,000 Unit/10 Ml Vial 50 Units SQ HS Novolin R Inj (Insulin Human Regular) 1,000 Unit/10 Ml Vial 50 Units IV DAILY IN TPN BAG IV DAILY Amiodarone (Amiodarone HCl) 200 Mg Tab 200 Mg PO DAILY Allergies: Coded Allergies: No Known Allergies (Verified Allergy, Unknown, 07/31/17) Active Ordered Medications Current Medications Morphine Sulfate (Morphine Inj) 4 mg ONCE ONCE IV PUSH Last administered on 12:24; Start 07/31/17 at 12:00; Stop 07/31/17 at 12:02; Status DC Ondansetron HCl (Zofran Inj) 4 mg ONCE ONCE IVP Last administered on 12:24; Start 07/31/17 at 12:00; Stop 07/31/17 at 12:02; Status DC Sodium Chloride 1,000 ml @ 1,000 mls/hr Q1H IV Last administered on 07/31/17 12:23; Start 07/31/17 at 11:59; Stop 07/31/17 at 12:58; Status DC Sodium Chloride (NS Flush) 2 ml UNSCH PRN IV FLUSH FLUSH AFTER USING IV ACCESS ; Start 07/31/17 at 12:00; Stop 07/31/17 at 14:50; Status DC Sodium Chloride 1,000 ml @ 75 mls/hr [id number] IV ; Start 07/31/17 at 15:00 Sodium Chloride (NS Flush) 2 ml UNSCH PRN IV FLUSH FLUSH AFTER USING IV ACCESS ; Start 07/31/17 at 14:45 Sodium Chloride (NS Flush) 2 ml BID IV FLUSH ; Start 07/31/17 at 21:00 Ondansetron HCl (Zofran Inj) 4 mg Q6H PRN IVP NAUSEA OR VOMITING; Start at 14:45 Naloxone HCl (Narcan Inj) 0.4 mg UNSCH PRN IV PUSH SEE LABEL COMMENTS; Start 07/31/17 at 14:45 Amiodarone HCl (Cordarone) 200 mg DAILY PO ; Start 08/01/17 at 09:00; Status UNV Aspirin (Aspirin Chew) 81 mg DAILY CHEW ; Start 08/01/17 at 09:00; Status UNV Insulin Glargine (Lantus Inj) 50 units HS SQ ; Start 07/31/17 at 21:00; Stop at 21:00; Status DC Insulin Human Regular (NovoLIN R INJ) 50 units DAILY SQ ; Start 08/01/17 at 09: 00; Stop 08/01/17 at 09:00; Status DC Metoprolol Tartrate (Lopressor) 12.5 mg BID PO ; Start 07/31/17 at 21:00; Status UNV Promethazine HCl (Phenergan Supp) 25 mg Q6H PRN RECTAL NAUSEA OR VOMITING; Start 07/31/17 at 15:15; Status UNV Dextrose (D50w (Vial) Inj) 50 ml UNSCH PRN IV PUSH HYPOGLYCEMIA-SEE COMMENTS; Start 07/31/17 at 15:30; Status UNV Glucagon (Glucagon Inj) 1 mg UNSCH PRN OTHER HYPOGLYCEMIA-SEE COMMENTS; Start 07/31/17 at 15:30; Status UNV Insulin Aspart (NovoLOG SUPPLEMENTAL SCALE) 1 ACHS SLIDING SCALE SQ ; Start at 17:00; Status UNV Family History Father: unspecified GI issues Mother: Cardiac disease Social History Tobacco: 1 PPD; quit smoking about a year ago, started smoking at age 10 .Drinking about one year ago. Intermittently uses marijuana. Physical Exam Vital Signs Vital Signs Date Time Temp Pulse Resp B/P (MAP) Pulse Ox O2 Delivery O2 Flow Rate FiO2 07/31/17 13:52 70 123/68 (86) 95 Room Air 07/31/17 12:00 82 18 07/31/17 11:38 98.0 80 16 117/70 (86) 98 Physical Exam GENERAL: This is a well-nourished, well-developed patient, in no apparent distress. SKIN: No rashes, ecchymoses or lesions. Cool and dry. PICC line in place. Dry clean and intact. No erythema or discharge noted. HEAD: Atraumatic. Normocephalic. No temporal or scalp tenderness. EYES: Pupils equal round and reactive. Extraocular motions intact. No scleral icterus. No injection or drainage. ENT: Nose without bleeding, purulent drainage or septal hematoma. Throat without erythema, tonsillar hypertrophy or exudate. Uvula midline. Airway patent. NECK: Trachea midline. No JVD or lymphadenopathy. Supple, nontender, no meningeal signs. CARDIOVASCULAR: Regular rate and rhythm without murmurs, gallops, or rubs. RESPIRATORY: Clear to auscultation. Breath sounds equal bilaterally. No wheezes , rales, or rhonchi. GASTROINTESTINAL: Abdomen soft, + moderate TTP in the epigastric area with deep palpation, nondistended. No hepato-splenomegaly, or palpable masses. No guarding. MUSCULOSKELETAL: Extremities without clubbing, cyanosis, or edema. No joint tenderness, effusion, or edema noted. No calf tenderness. Negative Homans sign bilaterally. NEUROLOGICAL: Awake and alert. Cranial nerves II through XII intact. Motor and sensory grossly within normal limits. Five out of 5 muscle strength in all muscle groups. Normal speech. Laboratory Laboratory Tests Test 07/31/17 12:15 White Blood Count 8.6 Red Blood Count 3.89 Hemoglobin 11.9 Hematocrit 35.8 Mean Corpuscular Volume 91.9 Mean Corpuscular Hemoglobin 30.4 Mean Corpuscular Hemoglobin Concent 33.1 Red Cell Distribution Width 14.1 Platelet Count 219 Mean Platelet Volume 8.6 Neutrophils (%) (Auto) 80.9 Lymphocytes (%) (Auto) 9.4 Monocytes (%) (Auto) 7.8 Eosinophils (%) (Auto) 1.7 Basophils (%) (Auto) 0.2 Neutrophils # (Auto) 7.0 Lymphocytes # (Auto) 0.8 Monocytes # (Auto) 0.7 Eosinophils # (Auto) 0.1 Basophils # (Auto) 0.0 CBC Comment DIFF FINAL Differential Comment Prothrombin Time 11.3 Prothromb Time International Ratio 1.1 Activated Partial Thromboplast Time 23.1 Blood Urea Nitrogen 24 Creatinine 1.15 Random Glucose 245 Total Protein 7.3 Albumin 2.6 Calcium Level 8.0 Magnesium Level 1.9 Alkaline Phosphatase 146 Aspartate Amino Transf (AST/SGOT) 31 Alanine Aminotransferase (ALT/SGPT) 31 Total Bilirubin 0.5 Sodium Level 134 Potassium Level 4.9 Chloride Level 106 Carbon Dioxide Level 21.4 Anion Gap 7 Estimat Glomerular Filtration Rate 62 Total Creatine Kinase 87 Troponin I 0.06 Lipase 118 Result Diagram: 07/31/17 1215 07/31/17 1215 Imaging Last Impressions Chest X-Ray 07/31/17 1159 Signed Impressions: Service Date/Time: Monday, July 31, 2017 12:27 - CONCLUSION: 1. Right- sided PICC line with tip in the jugular vein. 2. Left basilar density could be atelectasis or infiltrate. 3. Cardiomegaly. MD Fidelia Ervin VTE Risk Assessment Fidelia VTE Risk Assessment: Mod/High Risk (score >= 2) Caprini Risk Assessment Model Point Value = 1 Point Value = 2 Point Value = 3 Point Value = 5 Age 41-60 Minor surgery BMI > 25 kg/m2 Swollen legs Varicose veins or History of unexplained or recurrent spontaneous Oral contraceptives or hormone replacement Sepsis (< 1 month) Serious lung disease, including pneumonia (< 1 month) Abnormal pulmonary function Acute myocardial infarction Congestive heart failure (< 1 month) History of inflammatory bowel disease Medical patient at bed rest Age 61-74 Arthroscopic surgery Major open surgery (> 45 min) Laparoscopic surgery (> 45 min) Malignancy Confined to bed (> 72 hours) Immobilizing plaster cast Central venous access Age >= 75 History of VTE Family history of VTE Factor V Leiden Prothrombin [id number] Lupus anticoagulant Anticardiolipin antibodies Elevated serum homocysteine Heparin-induced thrombocytopenia Other congenital or acquired thrombophilia Stroke (< 1 month) Elective arthroplasty Hip, pelvis, or leg fracture Acute spinal cord injury (< 1 month) Prophylaxis Regimen Total Risk Factor Score Risk Level Prophylaxis Regimen 0-1 Low Early ambulation 2 Moderate Order ONE of the following: *Sequential Compression Device (SCD) *Heparin 5000 units SQ BID 3-4 Higher Order ONE of the following medications: *Heparin 5000 units SQ TID *Enoxaparin/Lovenox 40 mg SQ daily (WT < 150 kg, CrCl > 30 mL/min) *Enoxaparin/Lovenox 30 mg SQ daily (WT < 150 kg, CrCl > 10-29 mL/min) *Enoxaparin/Lovenox 30 mg SQ BID (WT < 150 kg, CrCl > 30 mL/min) AND/OR *Sequential Compression Device (SCD) 5 or more Highest Order ONE of the following medications: *Heparin 5000 units SQ TID (Preferred with Epidurals) *Enoxaparin/Lovenox 40 mg SQ daily (WT < 150 kg, CrCl > 30 mL/min) *Enoxaparin/Lovenox 30 mg SQ daily (WT < 150 kg, CrCl > 10-29 mL/min) *Enoxaparin/Lovenox 30 mg SQ BID (WT < 150 kg, CrCl > 30 mL/min) AND *Sequential Compression Device (SCD) Assessment and Plan Assessment and Plan This is a 76-year-old male with chronic pancreatitis who presented with questionable altered mental status Altered mental status -Seemed to resolve quickly. Patient is advised baseline he is not altered at all. Labs reviewed relatively stable. Unsure if there is a social component since patient feels like he is a burden to his daughter. -Will monitor in the observation unit. Chronic pancreatitis -Lipase 118. -Pain uncontrolled. -Will consider a long-acting pain medication since patient is taking oxycodone 7.5 mg every 4 hours with minimal control pain. -Patient is scheduled for Whipple at [facility] on 08/05/17. Patient told to keep appointment. -She is on TPN will consult dietitian to restart TPN. Paroxysmal atrial fibrillation -Currently sinus rhythm. Patient on amiodarone and metoprolol. Continue amiodarone. -On prior admission patient did not want to be anticoagulated. -Continue with aspirin. Hypertension -Continue medication as above. Type 2 diabetes insulin-dependent. -Most likely as a result of chronic pancreatitis. -Place patient on a medium dose insulin sliding scale. Once he is back on TPN and based on blood sugars will restart long-acting insulin. DVT prophylaxis -Lovenox Code Status Went over CODE STATUS with patient extensively and he stated that he wants to be a DNI (DO NOT INTUBATE) Discussed Condition With patient Elo Mckeon MD Jul 31, 2017 15:20
[2017-07-31] MEDS ORDERED: GLUCAGON 1 MG/ML VIAL OTHER PRN (15:30)
[2017-07-31] MEDS ORDERED: DEXTROSE 50% IN WATER 50 ML VIAL(D50) IV PUSH PRN (15:30)
[2017-07-31] MEDS ORDERED: ACETAMINOPHEN 325 MG TAB PO PRN (15:45)
[2017-07-31] MEDS ORDERED: PILL SPLITTER OTHER PRN (15:45)
[2017-07-31] MEDS: SODIUM CHLOR 0.45% 1000 ML INJ 1,000 ML IV SCH (15:58)
--- NOTE | 2017-07-31 16:18 | HHI.PR ---
Addendum to Inpatient Note Addendum Reason: Additional Documentation Additional Information thanks for taking care of him. I saw him this week and we stopped the metoprolol due to hypotension and added a liter of Saline daily to his IV regimen due to some dehydration and vomiting/nausea. He noted increased confusion when he started on the phenergan (since the zofran wasn't effective). I decreased the phenergan suppository from 25mg to 12.5mg at that time. narcotics could also contribute to his confusion. They have been monitoring his sugars closely and hypoglycemia hadn't been an issue as of my visit this week. I'm hopefull we can get him to [facility] this week to proceed with his surgery. Chasity Davidson MD Jul 31, 2017 16:17
[2017-07-31] MEDS ORDERED: ENOXAPARIN SODIUM 40 MG/0.4 ML SYRINGE SQ SCH (17:00)
[2017-07-31] MEDS: INSULIN ASPART SUPPLEMENTAL SCALE SQ SCH ×2 (17:00→21:00)
[2017-07-31] MEDS: oxyCODONE/ACETAMINOPHEN 7.5 MG/325 MG TAB PO PRN (18:18)
[2017-07-31] MEDS: ONDANSETRON HCL 4 MG/2 ML VIAL IVP PRN (18:19)
[2017-07-31] MEDS ORDERED: [UNRECOGNIZED DRUG - OTHER] IV SCH (20:00)
[2017-07-31] MEDS ORDERED: TRIMETHOBENZAMIDE INJ 200 MG/2 ML VIAL IM ONE (20:30)
[2017-07-31] MEDS ORDERED: INSULIN GLARGINE 1,000 UNITS/10 ML VIAL SQ SCH (21:00)
[2017-07-31] MEDS: METOPROLOL TARTRATE 25 MG TAB PO SCH (21:32)
[2017-07-31] MEDS: MORPHINE SULFATE 15 MG CONTROLLED RELEASE TAB PO SCH (21:34)
[2017-07-31] MEDS: SODIUM CHLORIDE 0.9% FLUSH 10 ML FLUSH IV FLUSH SCH (21:38)
[2017-08-01] MEDS: oxyCODONE/ACETAMINOPHEN 7.5 MG/325 MG TAB PO PRN ×2 (00:45→05:38)
[2017-08-01 01:05] VITALS: PULSE 71
[2017-08-01 04:07] LABS: BLOOD, URINE NEG (NEG); COMMENT (UR) CULT NOT INDICATED; CULTURE IF INDICATED CULT NOT INDICATED; GLUCOSE,URINE 70 mg/dL (NEG); HYALINE CAST, URINE 7 /lpf (RARE); KETONE, URINE NEG (NEG); MUCUS URINE FEW /lpf (OCC); NITRITE,URINE NEG (NEG); SQUAMOUS EPITHELIAL CELL URINE 3 /hpf (0-5); URINE COLOR YELLOW (YELLW/STRAW)
[2017-08-01 04:14] VITALS: PULSE 69
[2017-08-01 04:36] VITALS: BP 115/65; PULSE 74; RESP 18; TEMP 97.5; O2SAT 94
[2017-08-01] MEDS: SODIUM CHLOR 0.45% 1000 ML INJ 1,000 ML IV SCH (05:33)
[2017-08-01] MEDS: ONDANSETRON HCL 4 MG/2 ML VIAL IVP PRN (05:38)
[2017-08-01 07:05] LABS: HEMATOCRIT 32.7 % (39.0-51.0); MEAN CELL VOLUME 90.8 FL (80.0-100.0); MEAN CORPUSCULAR HEMOGLOBIN 30.4 PG (27.0-34.0); MEAN CORPUSCULAR HGB CONC 33.5 % (32.0-36.0); PLATELET COUNT 192 TH/MM3 (150-450); REVIEW FLAG FINAL; WHITE BLOOD COUNT 8.3 TH/MM3 (4.0-11.0)
[2017-08-01 07:38] LABS: BICARBONATE 20.1 MEQ/L (21.0-32.0); POTASSIUM 4.1 MEQ/L (3.5-5.1)
[2017-08-01] MEDS: INSULIN ASPART SUPPLEMENTAL SCALE SQ SCH ×2 (08:00→12:55)
[2017-08-01 08:21] VITALS: BP 124/67; PULSE 70; RESP 18; TEMP 97.5; O2SAT 95
[2017-08-01] MEDS: METOPROLOL TARTRATE 25 MG TAB PO SCH (09:00)
[2017-08-01] MEDS ORDERED: INSULIN HUMAN REGULAR 1,000 UNITS/10 ML VIAL SQ SCH (09:00)
[2017-08-01] MEDS ORDERED: AMIODARONE 200 MG TAB PO SCH (09:00)
[2017-08-01] MEDS ORDERED: ASPIRIN 81 MG CHEW TAB CHEW SCH (09:00)
[2017-08-01] MEDS: SODIUM CHLORIDE 0.9% FLUSH 10 ML FLUSH IV FLUSH SCH (09:32)
[2017-08-01 11:36] VITALS: BP 106/59; PULSE 71; RESP 18; TEMP 97.9; O2SAT 94
[2017-08-01] MEDS ORDERED: TRIMETHOBENZAMIDE INJ 200 MG/2 ML VIAL IM ONE (11:45)
[2017-08-01] MEDS: MORPHINE SULFATE 15 MG CONTROLLED RELEASE TAB PO SCH (11:57)
[2017-08-01 12:25] VITALS: PULSE 72
--- NOTE | 2017-08-01 15:29 | HHI.PR ---
Subjective Remarks This is a 76-year-old male past medical history significant for chronic pancreatitis who presented with questionable altered mental status. Interview was taken from patient. At the time when I interviewed the patient he was AAO 4. Patient was able to tell me his name, location, and month. He was also able to me current events and his medical condition. Patient was able to give me an appropriate history. He stated that he came to the hospital because he was acting "goofy." He would do things that did not make sense. Patient stated that this occurred this morning. He stated yesterday he did have increased abdominal pain in which she took extra tablets of oxycodone and to get more frequently. Patient stated that his main concern is actually uncontrolled pain. He stated that morphine works the best for him and wants to be on morphine. He does not feel like oxycodone controls his pain. Patient stated that he has an appointment for his Whipple surgery on 08/05/17 at [facility]. He stated that he is hoping that he did not have any flareup because he was told that if the pancreas is inflamed he would not be would have surgery. Patient denied any nausea or vomiting. He stated that he receives TPN. He remains afebrile. Patient stated that he feels like he is a burden for his daughter because it takes a lot to take care of him. Patient denies any depression. 12-4 REMAINS CONFUSED NOT SLEEPING WELL DAUGHTER STATES PAIN IS NOT CONTROLLED AT HOME BUT IS BETTER HERE WANTS TO DC TO HOME AND GO TO [facility] TOMORROW WILL DC TO HOME AND ADJUST MEDICATIONS Objective Vitals Vital Signs Date Time Temp Pulse Resp B/P (MAP) Pulse Ox O2 Delivery O2 Flow Rate FiO2 08/01/17 11:36 97.9 71 18 106/59 (75) 94 08/01/17 08:21 97.5 70 18 124/67 (86) 95 08/01/17 04:36 97.5 74 18 115/65 (82) 94 08/01/17 04:14 69 08/01/17 01:05 71 07/31/17 23:59 97.8 72 18 119/69 (86) 93 07/31/17 20:55 97.8 74 18 114/60 (78) 94 07/31/17 20:30 72 07/31/17 17:01 07/31/17 16:44 97.8 78 22 124/67 (86) 98 07/31/17 15:57 75 20 119/68 (85) 95 Room Air I/O 07/31/17 07/31/17 07/31/17 08/01/17 08/01/17 08/01/17 07:00 15:00 23:00 07:00 15:00 23:00 Intake Total 1000 ml Balance 1000 ml Intake IV Total 1000 ml # Voids 4 Result Diagram: 08/01/17 0623 08/01/17 0623 Other Results Laboratory Tests Test 07/31/17 12:15 08/01/17 03:56 08/01/17 06:23 White Blood Count 8.6 TH/MM3 8.3 TH/MM3 Red Blood Count 3.89 MIL/MM3 3.60 MIL/MM3 Hemoglobin 11.9 GM/DL 10.9 GM/DL Hematocrit 35.8 % 32.7 % Mean Corpuscular Volume 91.9 FL 90.8 FL Mean Corpuscular Hemoglobin 30.4 PG 30.4 PG Mean Corpuscular Hemoglobin Concent 33.1 % 33.5 % Red Cell Distribution Width 14.1 % 14.0 % Platelet Count 219 TH/MM3 192 TH/MM3 Mean Platelet Volume 8.6 FL 8.3 FL Neutrophils (%) (Auto) 80.9 % Lymphocytes (%) (Auto) 9.4 % Monocytes (%) (Auto) 7.8 % Eosinophils (%) (Auto) 1.7 % Basophils (%) (Auto) 0.2 % Neutrophils # (Auto) 7.0 TH/MM3 Lymphocytes # (Auto) 0.8 TH/MM3 Monocytes # (Auto) 0.7 TH/MM3 Eosinophils # (Auto) 0.1 TH/MM3 Basophils # (Auto) 0.0 TH/MM3 CBC Comment DIFF FINAL Differential Comment Prothrombin Time 11.3 SEC Prothromb Time International Ratio 1.1 RATIO Activated Partial Thromboplast Time 23.1 SEC Blood Urea Nitrogen 24 MG/DL 27 MG/DL Creatinine 1.15 MG/DL 1.14 MG/DL Random Glucose 245 MG/DL 215 MG/DL Total Protein 7.3 GM/DL Albumin 2.6 GM/DL Calcium Level 8.0 MG/DL 7.9 MG/DL Magnesium Level 1.9 MG/DL Alkaline Phosphatase 146 U/L Aspartate Amino Transf (AST/SGOT) 31 U/L Alanine Aminotransferase (ALT/SGPT) 31 U/L Total Bilirubin 0.5 MG/DL Sodium Level 134 MEQ/L 133 MEQ/L Potassium Level 4.9 MEQ/L 4.1 MEQ/L Chloride Level 106 MEQ/L 106 MEQ/L Carbon Dioxide Level 21.4 MEQ/L 20.1 MEQ/L Anion Gap 7 MEQ/L 7 MEQ/L Estimat Glomerular Filtration Rate 62 ML/MIN 63 ML/MIN Total Creatine Kinase 87 U/L Troponin I 0.06 NG/ML Lipase 118 U/L Urine Color YELLOW Urine Turbidity CLEAR Urine pH 6.0 Urine Specific [place] 1.025 Urine Protein 30 mg/dL Urine Glucose (UA) 70 mg/dL Urine Ketones NEG mg/dL Urine Occult Blood NEG Urine Nitrite NEG Urine Bilirubin NEG Urine Urobilinogen LESS THAN 2.0 MG/DL Urine Leukocyte Esterase NEG Urine WBC 3 /hpf Urine Squamous Epithelial Cells 3 /hpf Urine Hyaline Casts 7 /lpf Urine Mucus FEW /lpf Microscopic Urinalysis Comment CULT NOT INDICATED Imaging Last Impressions Chest X-Ray 07/31/17 1159 Signed Impressions: Service Date/Time: Monday, July 31, 2017 12:27 - CONCLUSION: 1. Right- sided PICC line with tip in the jugular vein. 2. Left basilar density could be atelectasis or infiltrate. 3. Cardiomegaly. Heber Ospina MD Objective Remarks GENERAL: Is awake but confused talkative and somewhat cooperative appears very tired SKIN: Warm and dry. HEAD: Atraumatic. Normocephalic. EYES: Pupils equal and round. No scleral icterus. No injection or drainage. Extraocular muscles intact ENT: No nasal bleeding or discharge. Mucous membranes pink and moist. Tongue is midline NECK: Trachea midline. No JVD. Supple CARDIOVASCULAR: Regular rate and rhythm. S1 and S2 no S3 or S4 RESPIRATORY: No accessory muscle use. Clear to auscultation. Breath sounds equal bilaterally. GASTROINTESTINAL: Abdomen soft, non-tender, nondistended. Hepatic and splenic margins not palpable. MUSCULOSKELETAL: Extremities without clubbing, cyanosis, or edema. No obvious deformities. NEUROLOGICAL: Awake and alert. No obvious cranial nerve deficits. Motor grossly within normal limits. Five out of 5 muscle strength in the arms and legs. Normal speech. PSYCHIATRIC: INAppropriate mood and affect; insight and judgment ABnormal. Medications and IVs Current Medications Morphine Sulfate (Morphine Inj) 4 mg ONCE ONCE IV PUSH Last administered on 12:24; Start 07/31/17 at 12:00; Stop 07/31/17 at 12:02; Status DC Ondansetron HCl (Zofran Inj) 4 mg ONCE ONCE IVP Last administered on 12:24; Start 07/31/17 at 12:00; Stop 07/31/17 at 12:02; Status DC Sodium Chloride 1,000 ml @ 1,000 mls/hr Q1H IV Last administered on 07/31/17 12:23; Start 07/31/17 at 11:59; Stop 07/31/17 at 12:58; Status DC Sodium Chloride (NS Flush) 2 ml UNSCH PRN IV FLUSH FLUSH AFTER USING IV ACCESS ; Start 07/31/17 at 12:00; Stop 07/31/17 at 14:50; Status DC Sodium Chloride 1,000 ml @ 75 mls/hr [id number] IV Last administered on 05:33; Start 07/31/17 at 15:00 Sodium Chloride (NS Flush) 2 ml UNSCH PRN IV FLUSH FLUSH AFTER USING IV ACCESS ; Start 07/31/17 at 14:45 Sodium Chloride (NS Flush) 2 ml BID IV FLUSH Last administered on 07/31/17 21: 38; Start 07/31/17 at 21:00 Ondansetron HCl (Zofran Inj) 4 mg Q6H PRN IVP NAUSEA OR VOMITING Last administered on 08/01/17 05:38; Start 07/31/17 at 14:45 Naloxone HCl (Narcan Inj) 0.4 mg UNSCH PRN IV PUSH SEE LABEL COMMENTS; Start 07/31/17 at 14:45 Amiodarone HCl (Cordarone) 200 mg DAILY PO Last administered on 08/01/17 09:32 ; Start 08/01/17 at 09:00 Aspirin (Aspirin Chew) 81 mg DAILY CHEW Last administered on 08/01/17 09:31; Start 08/01/17 at 09:00 Insulin Glargine (Lantus Inj) 50 units HS SQ ; Start 07/31/17 at 21:00; Stop at 21:00; Status DC Insulin Human Regular (NovoLIN R INJ) 50 units DAILY SQ ; Start 08/01/17 at 09: 00; Stop 08/01/17 at 09:00; Status DC Metoprolol Tartrate (Lopressor) 12.5 mg BID PO Last administered on 07/31/17 21:32; Start 07/31/17 at 21:00 Promethazine HCl (Phenergan Supp) 25 mg Q6H PRN RECTAL NAUSEA OR VOMITING; Start 07/31/17 at 15:15; Status UNV Dextrose (D50w (Vial) Inj) 50 ml UNSCH PRN IV PUSH HYPOGLYCEMIA-SEE COMMENTS; Start 07/31/17 at 15:30 Glucagon (Glucagon Inj) 1 mg UNSCH PRN OTHER HYPOGLYCEMIA-SEE COMMENTS; Start 07/31/17 at 15:30 Insulin Aspart (NovoLOG SUPPLEMENTAL SCALE) 1 ACHS SLIDING SCALE SQ ; Start at 17:00 Miscellaneous (Pill Splitter) 1 ea UNSCH PRN OTHER SEE LABEL COMMENTS; Start 07/31/17 at 15:45 Morphine Sulfate (Oramorph Sr) 15 mg Q12HR PO Last administered on 08/01/17 11 :57; Start 07/31/17 at 21:00 Oxycodone/ Acetaminophen (Percocet 7.5-325 Mg) 1 tab Q4H PRN PO pain 6-10 Last administered on 08/01/17 05:38; Start 07/31/17 at 15:45 Acetaminophen (Tylenol) 650 mg Q4H PRN PO pain 1-5; Start 07/31/17 at 15:45 Enoxaparin Sodium (Lovenox Inj) 40 mg Q24H SQ ; Start 07/31/17 at 17:00 Patient Own Medication PT OWN MED: PATIEN... Q24H IV Last administered on 20:00; Start 07/31/17 at 20:00; Stop 08/01/17 at 19:59 Trimethobenzamide HCl (Tigan Inj) 200 mg ONCE ONCE IM Last administered on 21:35; Start 07/31/17 at 20:30; Stop 07/31/17 at 20:31; Status DC Trimethobenzamide HCl (Tigan Inj) 200 mg NOW ONCE IM Last administered on 12/4 /17at 11:58; Start 08/01/17 at 11:45; Stop 08/01/17 at 11:46; Status DC A/P Assessment and Plan This is a 76-year-old male with chronic pancreatitis who presented with questionable altered mental status Altered mental status -Seemed to resolve quickly. Patient is advised baseline he is not altered at all. Labs reviewed relatively stable. Unsure if there is a social component since patient feels like he is a burden to his daughter. -Will monitor in the observation unit. Chronic pancreatitis -Lipase 118. -Pain uncontrolled. -Will consider a long-acting pain medication since patient is taking oxycodone 7.5 mg every 4 hours with minimal control pain. -Patient is scheduled for Whipple at [facility] on 08/05/17. Patient told to keep appointment. -He is on TPN will consult dietitian to restart TPN. Paroxysmal atrial fibrillation -Currently sinus rhythm. Patient on amiodarone and metoprolol. Continue amiodarone. -On prior admission patient did not want to be anticoagulated. -Continue with aspirin. Hypertension -Continue medication as above. Type 2 diabetes insulin-dependent. -Most likely as a result of chronic pancreatitis. -Place patient on a medium dose insulin sliding scale. Once he is back on TPN and based on blood sugars will restart long-acting insulin. DVT prophylaxis -Lovenox Code Status Went over CODE STATUS with patient extensively and he stated that he wants to be a DNI (DO NOT INTUBATE) Family wishes for him to go home with them. We will discharge to home today on Ativan and increased dose of Zofran and pain control and adjustment Discharge Planning Discharge to home today Abebe Han DO Aug 01, 2017 15:29
[2017-08-01] MEDS ORDERED: OXYC1TAB35 PO (15:36)
[2017-08-01] MEDS ORDERED: LORA-392 SL (15:36)
[2017-08-01] MEDS ORDERED: ONDA4TAB7 SL (15:36)
[2017-08-01] MEDS ORDERED: MORP1TAB24 PO (15:36)
--- NOTE | 2017-08-01 15:38 | HHI.DS ---
Discharge Summary Admission Date Jul 31, 2017 at 14:40 Discharge Date: Aug 01, 2017 Admitting Diagnosis delirium, chronic pancreatitis (1) Chronic pancreatitis ICD Code: K86.1 - Other chronic pancreatitis Diagnosis: Principal Status: Chronic (2) Delirium ICD Code: R41.0 - Disorientation, unspecified Diagnosis: Principal Status: Acute (3) Diabetes mellitus ICD Code: E11.9 - Type 2 diabetes mellitus without complications Diagnosis: Secondary Status: Chronic (4) Nutrition, metabolism, and development symptoms ICD Code: R63.8 - Other symptoms and signs concerning food and fluid intake Diagnosis: Secondary Status: Acute (5) Hyponatremia ICD Code: E87.1 - Hypo-osmolality and hyponatremia Diagnosis: Secondary Status: Resolved Procedures NONE Brief History - From Admission This is a 76-year-old male past medical history significant for chronic pancreatitis who presented with questionable altered mental status. Interview was taken from patient. At the time when I interviewed the patient he was AAO 4. Patient was able to tell me his name, location, and month. He was also able to me current events and his medical condition. Patient was able to give me an appropriate history. He stated that he came to the hospital because he was acting "goofy." He would do things that did not make sense. Patient stated that this occurred this morning. He stated yesterday he did have increased abdominal pain in which she took extra tablets of oxycodone and to get more frequently. Patient stated that his main concern is actually uncontrolled pain. He stated that morphine works the best for him and wants to be on morphine. He does not feel like oxycodone controls his pain. Patient stated that he has an appointment for his Whipple surgery on 08/05/17 at [facility]. He stated that he is hoping that he did not have any flareup because he was told that if the pancreas is inflamed he would not be would have surgery. Patient denied any nausea or vomiting. He stated that he receives TPN. He remains afebrile. Patient stated that he feels like he is a burden for his daughter because it takes a lot to take care of him. Patient denies any depression. All other review of system reviewed and negative. CBC/BMP: 08/01/17 0623 08/01/17 0623 Significant Findings Laboratory Tests Test 07/31/17 12:15 08/01/17 03:56 08/01/17 06:23 Red Blood Count 3.89 MIL/MM3 (4.50-5.90) 3.60 MIL/MM3 (4.50-5.90) Hemoglobin 11.9 GM/DL (13.0-17.0) 10.9 GM/DL (13.0-17.0) Hematocrit 35.8 % (39.0-51.0) 32.7 % (39.0-51.0) Neutrophils (%) (Auto) 80.9 % (16.0-70.0) Lymphocytes # (Auto) 0.8 TH/MM3 (1.0-4.8) Activated Partial Thromboplast Time 23.1 SEC (24.3-30.1) Blood Urea Nitrogen 24 MG/DL (7-18) 27 MG/DL (7-18) Random Glucose 245 MG/DL (74-106) 215 MG/DL (74-106) Albumin 2.6 GM/DL (3.4-5.0) Calcium Level 8.0 MG/DL (8.5-10.1) 7.9 MG/DL (8.5-10.1) Alkaline Phosphatase 146 U/L (45-117) Sodium Level 134 MEQ/L (136-145) 133 MEQ/L (136-145) Estimat Glomerular Filtration Rate 62 ML/MIN (>89) 63 ML/MIN (>89) Troponin I 0.06 NG/ML (0.02-0.05) Urine Protein 30 mg/dL (NEG-TRACE) Urine Glucose (UA) 70 mg/dL (NEG) Urine Mucus FEW /lpf (OCC) Carbon Dioxide Level 20.1 MEQ/L (21.0-32.0) Imaging Last Impressions Chest X-Ray 07/31/17 0679 Signed Impressions: Service Date/Time: Monday, July 31, 2017 12:27 - CONCLUSION: 1. Right- sided PICC line with tip in the jugular vein. 2. Left basilar density could be atelectasis or infiltrate. 3. Cardiomegaly. Heber Ospina MD PE at Discharge GENERAL: Is awake but confused talkative and somewhat cooperative appears very tired SKIN: Warm and dry. HEAD: Atraumatic. Normocephalic. EYES: Pupils equal and round. No scleral icterus. No injection or drainage. Extraocular muscles intact ENT: No nasal bleeding or discharge. Mucous membranes pink and moist. Tongue is midline NECK: Trachea midline. No JVD. Supple CARDIOVASCULAR: Regular rate and rhythm. S1 and S2 no S3 or S4 RESPIRATORY: No accessory muscle use. Clear to auscultation. Breath sounds equal bilaterally. GASTROINTESTINAL: Abdomen soft, non-tender, nondistended. Hepatic and splenic margins not palpable. MUSCULOSKELETAL: Extremities without clubbing, cyanosis, or edema. No obvious deformities. NEUROLOGICAL: Awake and alert. No obvious cranial nerve deficits. Motor grossly within normal limits. Five out of 5 muscle strength in the arms and legs. Normal speech. PSYCHIATRIC: INAppropriate mood and affect; insight and judgment ABnormal. Hospital Course This is a 76-year-old male past medical history significant for chronic pancreatitis who presented with questionable altered mental status. Interview was taken from patient. At the time when I interviewed the patient he was AAO 4. Patient was able to tell me his name, location, and month. He was also able to me current events and his medical condition. Patient was able to give me an appropriate history. He stated that he came to the hospital because he was acting "goofy." He would do things that did not make sense. Patient stated that this occurred this morning. He stated yesterday he did have increased abdominal pain in which she took extra tablets of oxycodone and to get more frequently. Patient stated that his main concern is actually uncontrolled pain. He stated that morphine works the best for him and wants to be on morphine. He does not feel like oxycodone controls his pain. Patient stated that he has an appointment for his Whipple surgery on 08/05/17 at [facility]. He stated that he is hoping that he did not have any flareup because he was told that if the pancreas is inflamed he would not be would have surgery. Patient denied any nausea or vomiting. He stated that he receives TPN. He remains afebrile. Patient stated that he feels like he is a burden for his daughter because it takes a lot to take care of him. Patient denies any depression. 12-4 REMAINS CONFUSED NOT SLEEPING WELL DAUGHTER STATES PAIN IS NOT CONTROLLED AT HOME BUT IS BETTER HERE WANTS TO DC TO HOME AND GO TO [facility] TOMORROW WILL DC TO HOME AND ADJUST MEDICATIONS Pt Condition on Discharge: Fair Discharge Disposition: Discharge Home Discharge Time: <= 30 minutes Discharge Instructions DIET: Follow Instructions for: Nothing By Mouth (CONTINUE TPN) Additional Diet Instructions: Continue TPN Activities you can perform: Regular-No Restrictions Follow up Referrals: PCP Follow-up - 2 Weeks with Chasity Chairez MD Surgical - 08/02/17 with [facility] New Medications: Lorazepam (Ativan) 0.5 Mg Tab 0.5 MG SL Q6H PRN for ANXIETY/NAUSEA, #120 TAB 0 Refills 1 TO 2 TABS SL NEEDED FOR ANXIETY/NAUSEA Morphine ER (Morphine ER) 15 Mg Tab 15 MG PO Q12HR for Pain Management, #120 TAB 1 TO 2 TABS PO BID Oxycodone HCl/Acetaminophen (Oxycodon-Acetaminophen 7.5-325) 7.5 Mg-325 Mg Tablet 1 TAB PO Q4H PRN for pain 6-10, #120 TAB Changed Medications: Ondansetron Odt (Ondansetron Odt) 4 Mg Tab 8 MG SL Q4H PRN for Nausea/Vomiting, #200 TAB 0 Refills (Changed from: 4 MG; Q6HR; 90) Continued Medications: Amiodarone (Amiodarone) 200 Mg Tab 200 MG PO DAILY for Regulate Heart Beat, TAB 0 Refills Aspirin (Aspirin Low Strength) 81 Mg Chew 81 MG CHEW DAILY, #30 EA Insulin Human Regular Inj (Novolin R Inj) 1,000 Unit/10 Ml Vial 50 UNITS IV DAILY for Blood Sugar Management, ML 0 Refills IN TPN BAG IV DAILY Metoprolol Tartrate (Metoprolol Tartrate) 25 Mg Tab 12.5 MG PO BID, #60 TAB 0 Refills Discontinued Medications: Insulin Glargine Inj (Lantus Inj) 1,000 Unit/10 Ml Vial 50 UNITS SQ HS for Blood Sugar Management, VIAL 0 Refills Ondansetron Odt (Zofran Odt) 4 Mg Tab 4 MG SL Q6HR PRN for Nausea/Vomiting, #14 TAB 0 Refills Promethazine Supp (Phenergan Supp) 25 Mg Supp 25 MG RECTAL Q6H PRN for NAUSEA OR VOMITING, #10 SUPP 0 Refills Grieper,Abebe M. DO Aug 01, 2017 15:38
--- NOTE | 2017-08-01 19:43 | EKG ---
Date Performed: 07/31/2017 Time Performed: 12:17:22 PTAGE: 76 years EKG: ATRIAL FIBRILLATION MODERATE T-WAVE ABNORMALITY, CONSIDER ANTERIOR ISCHEMIA Since previous tracing, no significant change noted ABNORMAL ECG PREVIOUS TRACING : 06/24/2017 20.07 DOCTOR: Liana Coffey Interpretating Date/Time 08/01/2017 19:41:21
== END 2017-08-01 16:37 | disposition home or self-care (01) ==
LOC: NEPC 11:35 → NEDA 14:40 → NEPHCDU 16:36
PROVIDERS: ADMIT Hospitalist; ATTEND Hospitalist
DX: K86.1 Other chronic pancreatitis (principal); I48.0 Paroxysmal atrial fibrillation; I11.9 Hypertensive heart disease without heart failure; E11.9 Type 2 diabetes mellitus without complications; R63.8 Other symptoms and signs concerning food and fluid intake; R10.9 Unspecified abdominal pain; G89.29 Other chronic pain; D64.9 Anemia, unspecified; R41.0 Disorientation, unspecified; R94.31 Abnormal electrocardiogram [ECG] [EKG]; E86.0 Dehydration; R11.2 Nausea with vomiting, unspecified; E87.1 Hypo-osmolality and hyponatremia; J43.9 Emphysema, unspecified; B19.20 Unspecified viral hepatitis C without hepatic coma; K21.9 Gastro-esophageal reflux disease without esophagitis; E78.00 Pure hypercholesterolemia, unspecified; G47.30 Sleep apnea, unspecified; M19.90 Unspecified osteoarthritis, unspecified site; Z85.828 Personal history of other malignant neoplasm of skin; Z85.46 Personal history of malignant neoplasm of prostate; Z79.82 Long term (current) use of aspirin; Z79.4 Long term (current) use of insulin
CPT/HCPCS: 71010; 80048; 80053; 81001; 82550; 82948; 83690; 83735; 84484; 85025; 85027; 85610; 85730; 93005; 96361; 96374; 96375; 96376; 99285; G0378; J2270; J2405; J3250; J7030